=== PATIENT | male | born 1935 | race Caucasian/White ===

== ENCOUNTER 2024-02-02 11:47 | Inpatient (IN) | payer OTHER ==
[2024-02-02] MEDS ORDERED: NA CHLORIDE 0.9% 1,000 ML ONE (13:01)
[2024-02-02] MEDS ORDERED: ONDANSETRON 4 MG/2 ML VIAL ONE (13:01)
[2024-02-02] MEDS ORDERED: BISACODYL 10 MG RECTAL SUPP ONE (13:01)
[2024-02-02] MEDS ORDERED: FAMOTIDINE 20 MG/2 ML VIAL IV ONE (13:01)
[2024-02-02] MEDS ORDERED: LACTULOSE 20 GM/30 ML UCUP ONE (13:02)
[2024-02-02 13:17] LABS: Absolute Basophils 0.1 K/uL (0-0.5); Absolute Lymphocytes (CBC) 0.4 K/uL (0.7-4.9); Absolute Neutrophil 14.9 K/uL (1.8-8.0); Basophils % 0.3 % (0-1.3); Eosinophils % 0.2 % (0-4.4); Hematocrit 40.7 % (39.6-49.0); Hemoglobin 13.4 g/dL (13.6-17.9); Lymphocytes % 2.5 % (15.3-44.8); MCH 30.1 pg (27.0-35.0); MCV 91.3 fL (80-100); MPV 8.2 fL (7.6-11.3); Monocytes % 6.3 % (3.3-12.3); Neutrophils % 90.7 % (41.7-73.7); Platelets 195 thou/uL (152-406); RBC Red Blood Cell Count 4.45 M/uL (4.33-5.43); Red Cell Distribution Width 13.2 % (12.1-15.2)
[2024-02-02 13:34] LABS: Albumin 4.3 g/dL (3.4-5.0); Albumin/Globulin Ratio 1.5 (1.1-1.8); Anion Gap 9.4 mEq/L (5.0-15.0); Bilirubin Total 1.6 mg/dL (0.2-1.0); Globulin 2.8 g/dL (2.3-3.5); Potassium 3.4 mEq/L (3.5-5.1); Protein, Total 7.1 g/dL (6.4-8.2)
[2024-02-02 14:04] LABS: Specific Gravity 1.021 (1.005-1.030); Urine Bilirubin NEGATIVE (Negative); Urine Blood Negative (Negative); Urine Clarity Clear (Clear); Urine Color Light-Yellow (Yellow); Urine Glucose NEGATIVE (Negative); Urine Ketones NEGATIVE (Negative); Urine Microscopic Reflex YN NO UMIC; Urine Nitrite NEGATIVE (Negative); Urine Protein NEGATIVE (Negative); Urine Urobilinogen Normal (Normal)
--- NOTE | 2024-02-02 14:32 | EDPHYS ---
Physician Documentation [facility] Name: Kevin Hurst Age: 88 yrs Sex: Male : 1935 Arrival Date: 02/02/2024 Time: 11:47 Bed 13 Private MD: WOLFGANG Physician Rahul Kaiser HPI: 02/01 14:21 This 88 yrs old Male presents to ER via Ambulatory with complaints of jennifer Constipation - sent by DrAmin. 14:21 The patient presents with abdominal pain abdominal distention in the upper abdomen, in jennifer the lower abdomen. Onset: The symptoms/episode began/occurred 2 day(s) ago. The symptoms do not radiate. Associated signs and symptoms: Pertinent positives: constipation, nausea. The symptoms are described as constant, crampy. Modifying factors: The symptoms are alleviated by nothing, the symptoms are aggravated by movement, pressure, touching the area, walking. Historical: - Allergies: 12:37 No Known Allergies; cm10 - Home Meds: 12:37 pravastatin 20 mg oral tablet [Active]; doxazosin 2 mg oral tablet [Active]; famotidine cm10 40 mg Oral tablet [Active]; levocetirizine 5 mg oral tablet [Active]; Lisinopril 12 mg Oral [Active]; omeprazole 20 mg Oral tablet, delayed release (enteric coated) [Active]; metoprolol succinate 25 mg oral Tablet, Extended Release 24 hr [Active]; amlodipine 5 mg tablet [Active]; brimonidine 0.2 % ophthalmic (eye) drops [Active]; timolol maleate 0.5 % Opht Drops, Once Daily [Active]; latanoprost 0.005 % ophthalmic (eye) drops [Active]; - PMHx: 12:37 Hypercholesterolemia; Hypertensive disorder; Ulcer; GERD; cm10 - PSHx: 12:37 Tonsillectomy; Appendectomy; Cataract Surgery- right eye; hernia repair; Right 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 - Infectious Disease History:: Denies. - Social history:: Smoking status: Patient denies any tobacco usage or history of. - Family history:: not pertinent. ROS: 14:21 Constitutional: Negative for fever, chills, and weight loss, Eyes: Negative for injury, jennifer pain, redness, and discharge, ENT: Negative for injury, pain, and discharge, Neck: Negative for injury, pain, and swelling, Cardiovascular: Negative for chest pain, palpitations, and edema, Respiratory: Negative for shortness of breath, cough, wheezing, and pleuritic chest pain, Back: Negative for injury and pain, : Negative for injury, bleeding, discharge, and swelling, MS/Extremity: Negative for injury and deformity, Skin: Negative for injury, rash, and discoloration, Neuro: Negative for headache, weakness, numbness, tingling, and seizure, Psych: Negative for depression, anxiety, suicide ideation, homicidal ideation, and hallucinations, Allergy/Immunology: Negative for hives, rash, and allergies, Endocrine: Negative for neck swelling, polydipsia, polyuria, polyphagia, and marked weight changes, Hematologic/Lymphatic: Negative for swollen nodes, abnormal bleeding, and unusual bruising, 14:21 Abdomen/GI: Positive for abdominal pain, nausea, constipation, abdominal cramps, abdominal distension, of the right lower quadrant and left lower quadrant, Exam: 14:21 Constitutional: This is a well developed, well nourished patient who is awake, alert, jennifer and in no acute distress. Head/Face: Normocephalic, atraumatic. Eyes: Pupils equal round and reactive to light, extra-ocular motions intact. Lids and lashes normal. Conjunctiva and sclera are non-icteric and not injected. Cornea within normal limits. Periorbital areas with no swelling, redness, or edema. ENT: Nares patent. No nasal discharge, no septal abnormalities noted. Tympanic membranes are normal and external auditory canals are clear. Oropharynx with no redness, swelling, or masses, exudates, or evidence of obstruction, uvula midline. Mucous membranes moist. Neck: Trachea midline, no thyromegaly or masses palpated, and no cervical lymphadenopathy. Supple, full range of motion without nuchal rigidity, or vertebral point tenderness. No Meningismus. Chest/axilla: Normal chest wall appearance and motion. Nontender with no deformity. No lesions are appreciated. Cardiovascular: Regular rate and rhythm with a normal S1 and S2. No gallops, murmurs, or rubs. Normal PMI, no JVD. No pulse deficits. Respiratory: Lungs have equal breath sounds bilaterally, clear to auscultation and percussion. No rales, rhonchi or wheezes noted. No increased work of breathing, no retractions or nasal flaring. Back: No spinal tenderness. No costovertebral tenderness. Full range of motion. Male : Normal genitalia with no discharge or lesions. Skin: Warm, dry with normal turgor. Normal color with no rashes, no lesions, and no evidence of cellulitis. MS/ Extremity: Pulses equal, no cyanosis. Neurovascular intact. Full, normal range of motion. Neuro: Awake and alert, GCS 15, oriented to person, place, time, and situation. Cranial nerves II-XII grossly intact. Motor strength 5/5 in all extremities. Sensory grossly intact. Cerebellar exam normal. Normal gait. Psych: Awake, alert, with orientation to person, place and time. Behavior, mood, and affect are within normal limits. 14:21 Abdomen/GI: Inspection: distension, Bowel sounds: hyperactive, in the right lower quadrant and left lower quadrant, Palpation: mild abdominal tenderness, moderate abdominal tenderness, in the right lower quadrant and left lower quadrant, Liver: no appreciated palpable abnormalities, Hernia: not appreciated, Vital Signs: 12:35 BP 141 / 66; Pulse 83; Resp 16; Temp 97.6; Pulse Ox 95% on R/A; Weight 88 kg; Height 6 cm10 ft. 1 in. ; Pain 0/10; 15:03 BP 127 / 63; Pulse 64; Resp 15; Pulse Ox 96% ; bp 15:50 BP 112 / 60; Pulse 62; Resp 16; Pulse Ox 95% ; bp 12:35 Body Mass Index 25.59 (88.00 kg, 185.42 cm) cm10 12:35 Pain Scale: Adult cm10 MDM: 12:22 Patient medically screened. jennifer 16:40 Differential diagnosis: diverticulitis, Mesenteric ischemia or infarction, non-specific jennifer abd pain, pancreatitis, Peptic Ulcer Disease, Prostatitis, Pyelonephritis, Ureterolithiasis, urinary tract infection. Data reviewed: vital signs, nurses notes, lab test result(s), radiologic studies, CT scan. Consideration of Admission/Observation Escalation of care including admission/observation considered. I considered the following discharge prescriptions or medication management in the emergency department Medications were administered in the Emergency Department. See MAR. Independent interpretation of the following test(s) in the Emergency Department CT Scan: My interpretation is CT ABD PELVIS. Test considered but Not performed: MRI: NO ABD USG. Care significantly affected by the following chronic conditions: Hypertension, GERD, PUD, HIGH CHLESTEROL. 02/01 12:26 Order name: CBC with Diff; Complete Time: 17:03 [facility] 02/01 12:26 Order name: CMP [facility] 02/01 12:26 Order name: Lipase [facility] 02/01 12:26 Order name: Urinalysis w/ reflexes; Complete Time: 14:05 [facility] 02/01 16:40 Order name: Manual Differential; Complete Time: 17:03 [facility] 02/01 14:52 Order name: Abdomen ; Complete Time: 16:27 [facility] 02/01 12:26 Order name: IV Saline Lock; Complete Time: 12:57 [facility] 02/01 12:26 Order name: Labs collected and sent; Complete Time: 12:57 [facility] Administered Medications: 13:09 Drug: NS 0.9% IV 1000 ml IV at 1 bolus Per protocol; 1000 mL bolus Route: IV; Rate: 1 bp bolus; Site: right antecubital; 15:53 Follow up: IV Status: Completed infusion; IV Intake: 1000ml bp 13:09 Drug: Famotidine IVP 20 mg IVP once; dilute with 10 mL 0.9% NaCl; give over 2 minutes bp Route: IVP; Site: right antecubital; 15:53 Follow up: Response: No adverse reaction bp 13:09 Drug: Ondansetron IVP 4 mg IVP once; over 2 minutes Route: IVP; Site: right antecubital;bp 15:53 Follow up: Response: No adverse reaction bp 13:09 Drug: Lactulose PO 30 grams 45 ml PO once Volume: 45 ml; Route: PO; bp 15:52 Follow up: Response: No adverse reaction bp 15:03 Drug: Piperacillin-Tazobactam IVPB 3.375 grams IVPB once over 60 mins; (mix in NS 100 bp mL) Route: IVPB; Infused Over: 60 mins; Site: right antecubital; 15:52 Follow up: IV Status: Completed infusion; IV Intake: 100ml bp 15:03 Drug: NS 0.9% with KCl IV 20 mEq/L 1000 ml IV at 100 ml/hr continuous Route: IV; Rate: bp 100 ml/hr; Site: right antecubital; 15:52 Follow up: IV Status: Infusion continued upon admission bp 15:40 Not Given (Other Intervention Used): dulcolaxsuppository 10 mg MA once bp Disposition Summary: 02/02/24 16:43 Discharge Ordered Notes: Location: Home(02/02/24 16:43) jennifer Problem: new(02/02/24 16:43) jennifer Symptoms: have improved(02/02/24 16:43) jennifer Condition: Stable(02/02/24 16:43) jennifer Diagnosis - Constipation - FECAL IMPACTION(02/02/24 16:43) jennifer - Abdominal tenderness(02/02/24 16:43) jennifer - Elevated white blood cell count(02/02/24 16:43) jennifer - Unspecified kidney failure jennifer - Bandemia jennifer Followup: jennifer - With: Apolinar Bird MD - When: 1 - 2 days - Reason: Recheck today's complaints, Continuance of care, Re-evaluation by your physician Discharge Instructions: - Discharge Summary Sheet jennifer - Abdominal Pain, Adult jennifer - Constipation, Adult jennifer - Constipation, Adult, [id number] jennifer - Abdominal Pain, Adult, [id number] jennifer - Chronic Kidney Disease, Adult, [id number] [facility] Forms: - Medication Reconciliation Form jennifer - Antibiotic Education jennifer - Prescription Opioid Use jennifer - Patient Portal Instructions [facility] - Leadership Thank You Letter [facility] Prescriptions: - Dulcolax (bisacodyl) 10 mg Rectal suppository - insert 1 suppository RECTAL route daily for 5 days; 5 suppository; Refills: 0, [facility] Product Selection Permitted - Augmentin 875-125 mg Oral Tablet - take 1 tablet ORAL route every 12 hours for 10 days; 20 tablet; Refills: 0, [facility] Product Selection Permitted - Lactulose 10 gram/15 mL Oral Solution - take 30 milliliters ORAL route once daily; 300 milliliter; Refills: 0, Product [facility] Selection Permitted Signatures: Dispatcher [employer] EDMS Rahul Kaiser MD MD cha Pinkerton, Shawna sp Peltier, Brian, Angelica Gonzalez RN, RN RN cm10 Corrections: (The following items were deleted from the chart) 12:27 12:27 Abdomen Pelvis W [id number].[id number] ordered. EDMS EDMS 15:15 14:31 jennifer sp 15:39 14:05 Valdez ordered. jennifer bp 16:42 14:31 Observation jennifer jennifer 16:42 14:31 Bird, A jennifer jennifer 16:42 14:31 Telemetry/MedSurg (observation) jennifer jennifer 16:42 14:31 Fair jennifer jennifer 16:42 14:31 new jennifer jennifer 16:42 14:31 have improved jennifer jennifer 16:42 14:31 Standard jennifer jennifer 16:42 14:31 Abdominal tenderness jennifer jennifer 16:42 14:31 Elevated white blood cell count jennifer jennifer 16:42 14:31 Constipation jennifer jennifer 16:42 14:32 Hypokalemia jennifer jennifer 16:42 14:32 Chronic kidney disease, unspecified jennifer jennifer 16:42 15:15 205 sp jennifer
--- NOTE | 2024-02-02 14:32 | ER ---
Nurse's Notes [facility] Name: Kevin Hurst Age: 88 yrs Sex: Male : 1935 Arrival Date: 02/02/2024 Time: 11:47 Bed 13 Private MD: Diagnosis: Constipation-FECAL IMPACTION;Abdominal tenderness;Elevated white blood cell count;Unspecified kidney failure;Bandemia Presentation: 02/01 12:35 Chief complaint: Patient states: Sent to the ER by Dr. Bird. Pt states that he has been cm10 constipated since and has not been able to urinate since last night at 2200. Pt reports abdominal pain that he describes as pressure and is worse when sitting. Coronavirus screen: Client denies travel out of the [place] in the last 14 days. At this time, the client does not indicate any symptoms associated with coronavirus-19. Ebola Screen: Patient denies travel to an Ebola-affected area in the 21 days before illness onset. No symptoms or risks identified at this time. Initial Sepsis Screen: Does the patient meet any 2 criteria? No. Patient's initial sepsis screen is negative. Does the patient have a suspected source of infection? No. Patient's initial sepsis screen is negative. Risk Assessment: Do you want to hurt yourself or someone else? Patient reports no desire to harm self or others. Onset of symptoms was February 02, 2024. 12:35 Method Of Arrival: Ambulatory cm10 12:35 Acuity: DONALD 3 cm10 Triage Assessment: 12:44 General: Appears in no apparent distress. uncomfortable, Behavior is calm, cooperative. cm10 Neuro: No deficits noted. Level of Consciousness is awake, alert, obeys commands, Oriented to person, place, time, situation, Appropriate for age. Respiratory: No deficits noted. Airway is patent Respiratory effort is even, unlabored, Respiratory pattern is regular, symmetrical. Historical: - Allergies: 12:37 No Known Allergies; cm10 - Home Meds: 12:37 pravastatin 20 mg oral tablet [Active]; doxazosin 2 mg oral tablet [Active]; famotidine cm10 40 mg Oral tablet [Active]; levocetirizine 5 mg oral tablet [Active]; Lisinopril 12 mg Oral [Active]; omeprazole 20 mg Oral tablet, delayed release (enteric coated) [Active]; metoprolol succinate 25 mg oral Tablet, Extended Release 24 hr [Active]; amlodipine 5 mg tablet [Active]; brimonidine 0.2 % ophthalmic (eye) drops [Active]; timolol maleate 0.5 % Opht Drops, Once Daily [Active]; latanoprost 0.005 % ophthalmic (eye) drops [Active]; - PMHx: 12:37 Hypercholesterolemia; Hypertensive disorder; Ulcer; GERD; cm10 - PSHx: 12:37 Tonsillectomy; Appendectomy; Cataract Surgery- right eye; hernia repair; Right 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 - Infectious Disease History:: Denies. - Social history:: Smoking status: Patient denies any tobacco usage or history of. - Family history:: not pertinent. Screenin:51 [facility] ED Fall Risk Assessment (Adult) History of falling in the last 3 months, bp including since admission No falls in past 3 months (0 pts) Confusion or Disorientation No (0 pts) Intoxicated or Sedated No (0 pts) Impaired Gait No (0 pts) Mobility Assist Device Used No (0 pt) Altered Elimination No (0 pt) Score/Fall Risk Level 0 - 2 = Low Risk Oriented to surroundings. Abuse screen: Denies threats or abuse. Denies injuries from another. Nutritional screening: No deficits noted. Tuberculosis screening: No symptoms or risk factors identified. Assessment: 13:00 General: Appears in no apparent distress. Behavior is cooperative, appropriate for age, bp anxious. Pain: Complains of pain in left lower quadrant and right lower quadrant. GI: Bowel sounds present X 4 quads. Abd is soft X 4 quads. 15:04 Reassessment: ADMIT INITIATED. bp 15:51 Reassessment: FAX REPORT TO 2ND. bp Vital Signs: 12:35 BP 141 / 66; Pulse 83; Resp 16; Temp 97.6; Pulse Ox 95% on R/A; Weight 88 kg; Height 6 cm10 ft. 1 in. ; Pain 0/10; 15:03 BP 127 / 63; Pulse 64; Resp 15; Pulse Ox 96% ; bp 15:50 BP 112 / 60; Pulse 62; Resp 16; Pulse Ox 95% ; bp 12:35 Body Mass Index 25.59 (88.00 kg, 185.42 cm) cm10 12:35 Pain Scale: Adult cm10 ED Course: 11:54 Patient arrived in ED. ra3 12:22 Rahul Kaiser MD is Attending Physician. jennifer 12:37 Triage completed. cm10 12:44 Arm band placed on Patient placed in an exam room, on a stretcher. cm10 12:56 Benson Farmer, RN is Primary Nurse. bp 12:57 CBC with Diff Sent. bc6 12:57 CMP Sent. bc6 12:57 Lipase Sent. bc6 12:57 Initial lab(s) drawn, by tn, sent to lab. Inserted saline lock: 20 gauge in right bc6 antecubital area, using aseptic technique. Blood collected. Flushed with 10 mL NS. 14:30 Jordan Bird MD is Hospitalizing Provider. [facility] 14:52 Abdomen In Process Unspecified. EDMS 15:51 Patient has correct armband on for positive identification. Provided Education on: bp Blood Transfusion. 15:51 No provider procedures requiring assistance completed. Patient admitted, IV remains in bp place. 16:42 Apolinar Bird MD is Referral Physician. jennifer Administered Medications: 13:09 Drug: NS 0.9% IV 1000 ml IV at 1 bolus Per protocol; 1000 mL bolus Route: IV; Rate: 1 bp bolus; Site: right antecubital; 15:53 Follow up: IV Status: Completed infusion; IV Intake: 1000ml bp 13:09 Drug: Famotidine IVP 20 mg IVP once; dilute with 10 mL 0.9% NaCl; give over 2 minutes bp Route: IVP; Site: right antecubital; 15:53 Follow up: Response: No adverse reaction bp 13:09 Drug: Ondansetron IVP 4 mg IVP once; over 2 minutes Route: IVP; Site: right antecubital;bp 15:53 Follow up: Response: No adverse reaction bp 13:09 Drug: Lactulose PO 30 grams 45 ml PO once Volume: 45 ml; Route: PO; bp 15:52 Follow up: Response: No adverse reaction bp 15:03 Drug: Piperacillin-Tazobactam IVPB 3.375 grams IVPB once over 60 mins; (mix in NS 100 bp mL) Route: IVPB; Infused Over: 60 mins; Site: right antecubital; 15:52 Follow up: IV Status: Completed infusion; IV Intake: 100ml bp 15:03 Drug: NS 0.9% with KCl IV 20 mEq/L 1000 ml IV at 100 ml/hr continuous Route: IV; Rate: bp 100 ml/hr; Site: right antecubital; 15:52 Follow up: IV Status: Infusion continued upon admission bp 15:40 Not Given (Other Intervention Used): dulcolaxsuppository 10 mg GA once bp Intake: 15:52 IV: 100ml; Total: 100ml. bp 15:53 IV: 1000ml; Total: 1100ml. bp Outcome: 14:31 Decision to Hospitalize by Provider. jennifer 15:51 Admitted to Med/surg accompanied by tech, via wheelchair, bp 15:51 Condition: stable 15:51 Instructed on the need for admit, 16:43 Discharge ordered by . [facility] 17:06 Patient left the ED. Signatures: Dispatcher [employer] EDMS Rahul Kaiser MD MD cha Baxter, Heather, RN RN Benson Farmer RN RN Verónica Cheek bc6 Angelica Ricardo RN RN cm10 Ira Will 3
[2024-02-02] MEDS ORDERED: PIPERACIL/TAZO 3.375 GM VIAL IV ONE (14:43)
[2024-02-02] MEDS ORDERED: NS KCL 20MEQ 1,000 ML IV ONE (14:43)
[2024-02-02] MEDS ORDERED: NA CHLORIDE 0.9% 100 ML ONE (14:43)
--- NOTE | 2024-02-02 15:10 | RAD REPORT ---
EXAM DESCRIPTION: CT - Abdomen Pelvis Wo Contrast - 02/02/2024 2:52 pm CLINICAL HISTORY: Abdominal pain and constipation COMPARISON: 2014 TECHNIQUE: Computed axial tomography of the abdomen and pelvis was obtained. IV contrast not request ed. Oral contrast given All CT scans are performed using dose optimization technique as appropriate and may include automated exposure control or mA/KV adjustment according to patient size. FINDINGS: The evaluation of solid organs and vessels is limited secondary to the lack of contrast a dministration. Cholelithiasis. Small hiatal hernia 4.6 centimeter low to intermediate density lesion right lobe of the liver. Spleen, pancreas, left adrenal and left kidney grossly normal 1.6 centimeter right adrenal lesion unchanged. Hounsfield unit negative for. This is compatible with an adenoma. No follow-up imaging recommended Rectum distended stool measuring 7.4 centimeters. Moderate to large amount of stool throughout the re mainder of the colon. Moderate inguinal hernias contain fat. Stranding is present within the fat which may indicate inflamm ation should be correlated clinically. Postsurgical changes right inguinal hernia repair Mild prostatic enlargement Small umbilical hernia IMPRESSION: 4.6 centimeter hepatic lesion not clearly seen on prior exam. This may represent neopla sm. It is recommended that the patient have an ultrasound for further evaluation Fecal impaction Moderate inguinal hernias contain fat. Stranding is present within the fat which may indicate inflamm ation should be correlated clinically. Postsurgical changes right inguinal hernia repair
[2024-02-02 16:40] LABS: Band Neutrophils 12 % (0-1); Blood Morphology Comment NOT SEEN (NOT SEEN); Differential Total Cells Count 100; Lymphocytes 3 % (15-42); Monocytes 6 % (0-10); Platelet Estimate ADEQ; Segmented Neutrophils 79 % (40-80)
[2024-02-02 17:19] VITALS: TEMP 97.6
[2024-02-02 17:24] VITALS: BP 112/60; O2SAT 95
== END 2024-02-02 17:25 | disposition left against medical advice (07) | DRG 392 ==
LOC: ER 11:47 → ERHOLD 14:34 → 2ND 15:51
PROVIDERS: ADMIT Internal Medicine; ATTEND Internal Medicine
DX: K59.00 Constipation, unspecified (principal); E78.00 Pure hypercholesterolemia, unspecified; I10 Essential (primary) hypertension; D72.825 Bandemia; D72.829 Elevated white blood cell count, unspecified; K21.9 Gastro-esophageal reflux disease without esophagitis; Z90.5 Acquired absence of kidney; Z90.49 Acquired absence of other specified parts of digestive tract; Z53.29 Procedure and treatment not carried out because of patient's decision for other reasons; Z79.899 Other long term (current) drug therapy
CPT/HCPCS: 36415; 74176; 80053; 81003; 83690; 85025; 96361; 96365; 96375; 99285; J2405; J2543; J3480; J7030

== ENCOUNTER 2024-04-27 20:43 | Inpatient (IN) | payer OTHER ==
--- OUTSIDE RECORDS SUMMARY | 2024-04-27 20:46 | XMS REPORT | Clinical Summary ---
Author Name Unknown Organization [facility] Address [address] [place] [address] Care Team Providers Care Intellectual Property Legal Assistant Name Role Phone Apolinar Bird MD Unavailable [phone] Ira Lancaster RN Unavailable Kalpana Mancera MD Primary Care Provider [phone] Allergies No known active allergies Medications Medication Sig Dispensed Refills Start Date End Date Status pravastatin (PRAVACHOL) 20 mg tablet Take 1 tablet (20 mg) by mouth daily. Active doxazosin (CARDURA) 2 mg tablet Take 1 tablet (2 mg) by mouth at bedtime. Active famotidine (PEPCID) 40 mg tablet Take 1 tablet (40 mg) by mouth nightly as needed. Active omeprazole (PriLOSEC) 20 mg capsule Take 1 capsule (20 mg) by mouth every morning before breakfast. Active metoprolol succinate (TOPROL XL) 25 mg 24 hr tablet Take 1 tablet (25 mg) by mouth daily. Active amLODIPine (NORVASC) 5 mg tablet Take 1 tablet (5 mg) by mouth daily. Active cyanocobalamin (VITAMIN B-12) 1000 mcg tablet Take 5 tablets (5,000 mcg) by mouth. Active brimonidine 0.2% ophthalmic solution Administer 1 drop to both eyes twice daily. 07/26/2023 Active timolol (TIMOPTIC) 0.5% ophthalmic solution Administer 1 drop to both eyes daily. 02/08/2024 Active latanoprost (XALATAN) 0.005% ophthalmic solution Administer 1 drop to both eyes at bedtime. 02/08/2024 Active tamsulosin (FLOMAX) 0.4 mg 24 hr capsule Take 1 capsule (0.4 mg) by mouth daily. 02/04/2024 Active lisinopril (PRINIVIL,ZESTRIL) 10 mg tablet Take 1 tablet (10 mg) by mouth twice daily. Active vit C/E/Zn/coppr/lutein/ zeaxan (PRESERVISION AREDS-2 ORAL) Take 1 tablet by mouth daily. Active cholecalciferol, vitamin D3, (VITAMIN D3) 2,000 units tab tablet Take 1 tablet (2,000 Units) by mouth daily. Active Active Problems Problem Noted Date Diagnosed Date Liver mass 03/06/2024 Hyperlipidemia Hypertension Encounters Date Type Department Care Team Description 03/26/2024 Orders Only Internal Medicine Center [address] [facility], 9th [place] [address] Sergey Crouch APRN Liver mass (Primary Dx) 03/25/2024 Telephone Internal Medicine Center [address] [facility], 6th [place] [address] Kalpana Mancera MD 03/20/2024 9:23 AM CDT Anesthesia Event [facility] [address] [place] [address] Scottie Jarrell MD Faruki, Adeel Ahmad, MD 03/20/2024 7:58 AM CDT - 03/20/2024 11:59 PM CDT Hospital Encounter [facility] [address] [place] [address] Sergey Crouch APRN Lu, Thomas, MD Liver mass Discharge Disposition: Home 03/20/2024 Travel 03/19/2024 10:08 AM CDT - 03/19/2024 11:59 PM CDT Hospital Encounter [facility] [address] [place] [address] Kalpana Mancera MD Wu, Pei H, PA-C Liver mass (Primary Dx); Encounter for preprocedural laboratory examination Discharge Disposition: Home 03/19/2024 Travel 03/18/2024 10:00 AM CDT POEM Appointments [facility] [address] [place] [address], 6th [place] [address] Kalpana Mancera MD 03/18/2024 Telephone MD [facility] [address] [place] [address] Monicaoralia Rodriguez PramodRUTH latif 03/17/2024 11:59 PM CDT Anesthesia Event [facility] [address] [place] [address], 6th [place] [address] Chacha Watts RN 03/14/2024 Orders Only Interventional Radiology [address] [facility], 4th [place] [address] Makenzie Mclain PA-C Encounter for preprocedural laboratory examination (Primary Dx) 03/12/2024 2:00 PM CDT - 03/12/2024 11:59 PM CDT Hospital Encounter [facility] [address] [place] [address], 2nd [place] [address] Sergey Crouch APRN Liver mass Discharge Disposition: Home 03/12/2024 1:15 PM CDT - 03/12/2024 1:59 PM CDT Hospital Encounter [facility] [address] [place] [address], [place] [address] Sergey Crouch APRN Liver mass Discharge Disposition: Home 03/12/2024 10:30 AM CDT Office Visit [facility] [address] [place] [address], 9th [place] [address] Kalpana Mancera MD Liver mass (Primary Dx); Hypertension; Mixed hyperlipidemia 03/12/2024 9:30 AM CDT NPR [facility] PATIENT ACCESS 03/12/2024 Documentation [facility] [address] [place] [address], 9th [place] [address] Sandra Barboza RN 03/12/2024 Travel 03/07/2024 8:05 PM CDT Ancillary Procedure Image Library [address] [place] [address] Kalpana Mancera MD Cancer 03/07/2024 8:00 PM CDT Ancillary Procedure Image Library [address] [place] [address] Kalpana Mancera MD Cancer 03/04/2024 Lab Requisition [facility] Hector Pittman MD Feng, Wei, MD 02/28/2024 Telephone [facility] [address] [place] [address] Main [facility], [facility] [place] [address] Ira Lancaster, RN 02/27/2024 Telephone [facility] [address] [place] [address], [facility] [place] [address] Ira Lancaster, RN 02/21/2024 Telephone [facility] [address] [place] [address], [facility] [place] [address] Ira Lancaster, RN 02/20/2024 Telephone [facility] [address] [place] [address], [facility] [place] [address] Ira Lancaster, RN 02/20/2024 Telephone [facility] PATIENT ACCESS Kavita Mercado, RN after 04/28/2023 Immunizations Name Administration Dates Next Due Influenza Whole 03/25/2015,06/05/2014 Surgical History Surgery Date Site/Laterality Comments TONSILLECTOMY 06/25/1943 - 06/24/1944 APPENDECTOMY 06/25/1943 - 06/24/1944 CATARACT EXTRACTION, BILATERAL 06/25/2006 - 06/24/2007 R ight KNEE SURGERY 06/25/2007 - 06/24/2008 Right HERNIA REPAIR 06/25/2013 - 06/24/2014 NEPHRECTOMY 06/25/2014 - 06/24/2015 Right PROSTATE SURGERY 06/25/2014 - 06/24/2015 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 CATARACT EXTRACTION, BILATERAL 06/25/2015 - 06/24/2016 L eft Medical History Medical History Date Comments Hypertension Hyperlipidemia Social History Tobacco Use Types Packs/Day Years Used Date Smoking Tobacco: Former Cigars 2 002 - 2003 Passive Smoke Exposure: Past Smokeless Tobacco: Never Tobacco Cessation:Counseling Given: No Comments:Socially cigar Alcohol Use Standard Drinks/Week Comments Not Currently 0 (1 standard drink = 0.6 oz pur e alcohol) Sex and Gender Information Value Date Recorded Sex Assigned at Male 02/20/2024 11:40 AM CDT Gender Identity Male 02/20/2024 11:40 AM CDT Sexual Orientation Not on file Job Start Date Occupation Industry Not on file Not on file Not on file Obstetrics History Last Filed Vital Signs Vital Sign Reading Time Taken Comments Blood Pressure 138/70 03/20/2024 1:00 PM CDT Pulse 55 03/20/2024 1:00 PM CDT pt baseline - MD aware Temperature 36.5 C (97.7 F) 03/20/2024 1 2:50 PM CDT Respiratory Rate 12 03/20/2024 1:00 PM CDT Oxygen Saturation 97% 03/20/2024 1:0 0 PM CDT Inhaled Oxygen Concentration - - Weight 89.4 kg (197 lb 1.5 oz) 03/20/2024 8:26 AM CDT Height 173 cm (5' 8.11") 03/12/2024 11: 12 AM CDT Body Mass Index 29.87 03/12/2024 11:12 AM CDT Plan of Treatment Upcoming Encounters Date Type Department Care Team (Late st Contact Info) Description 05/08/2024 11:00 AM COMMERCIAL LENDER Consult [facility] [facility], 7th [place] [address] Arthur Still MD [address] [place] [address] [email or web address] Health Maintenance Due Date Last Done Comments Pneumococcal Vaccine: 65+ Ye ars (1 of - PCV) 2000 COVID-19 Vaccine ( - season) 2024 Influenza Vaccine (#1) 2024 03/25/2015, 2013 Procedures Procedure Name Priority Date/Time Associated Diagnosis Comments IR US GUIDED BIOPSY LIVER 60 Routine 03/20/2024 10:06 AM CDT Liver mass PATHOLOGY BIOPSY INTERPRETATION Routine 03/20/2024 8:38 AM CDT Liver mass CONFIRM ABORH TYPE Routine 03/19/2024 12 :15 PM CDT Encounter for preprocedural laboratory examination TYPE AND SCREEN Routine 03/19/2024 12:14 PM CDT Encounter for preprocedural laboratory examination .CBC Routine 03/12/2024 1:52 PM CDT Liver mass CARBOHYDRATE ANTIGEN 19-9 Routine 03/12/2024 1:52 PM CDT Liver mass CARCINOEMBRYONIC ANTIGEN Routine 03/12/2024 1:52 PM CDT Liver mass ALPHA FETOPROTEIN TUMOR MARKER Routine 03/12/2024 1:52 PM CDT Liver mass HEPATIC FUNCTION PANEL Routine 1:52 PM CDT Liver mass HEPATITIS C VIRUS ANTIBODY Routine 03/12/2024 1:52 PM CDT Liver mass APTT Routine 03/12/2024 1:52 PM CDT Liver mass COMPLETE BLOOD COUNT W/ DIFFERENTIAL Routine 03/12/2024 1:52 PM CDT Liver mass PROTHROMBIN TIME Routine 03/12/2024 1:52 PM CDT Liver mass LACTATE DEHYDROGENASE Routine 03/12/2024 1:52 PM CDT Liver mass MAGNESIUM LEVEL Routine 03/12/2024 1:52 PM CDT Liver mass PHOSPHORUS LEVEL Routine 03/12/2024 1:52 PM CDT Liver mass CALCIUM LEVEL Routine 03/12/2024 1:52 PM CDT Liver mass GLUCOSE, RANDOM Routine 03/12/2024 1:52 PM CDT Liver mass CREATININE Routine 03/12/2024 1:52 PM CDT Liver mass BLOOD UREA NITROGEN Routine 03/12/2024 1 :52 PM CDT Liver mass ELECTROLYTE PANEL Routine 03/12/2024 1:5 2 PM CDT Liver mass EKG, 12-LEAD (SCHEDULED) Routine 03/12/2024 Liver mass OSI US ABDOMINAL COMPLETE Routine 02/06/2024 4:15 PM CDT Cancer OSI CT ABDOMEN AND PELVIS Routine 02/02/2024 4:15 PM CDT Cancer after 04/28/2023 Results * IR US GUIDED BIOPSY LIVER (03/20/2024 10:06 AM CDT) Anatomical Region Laterality Modality Abdomen/Pelvis, Organ (liver/spleen/kidney) Computed Tomography Narrative 03/20/2024 1:36 PM CDT Date of Procedure: 03/20/24 Attending Physician: Hi Singleton MD Patient Liaison: None Pre Procedure Diagnosis: Liver mass Post Procedure Diagnosis: Unchanged Indication: New mass / nodule for tissue diagnosis Protocol Number: N/A Title of Procedure: Percutaneous Ultrasound-Guided Biopsy Operative Findings: Percutaneous image-guided biopsy of 5cm right liver mass. Consent: The procedure, risks, indications and alternatives were explained. All questions were answered and informed consent was obtained. I have reviewed the history and physical dictated by the MARIN / fellow. Sedation/Anesthesia: Anesthesia provided by Anesthesia Department. Procedure in Detail: A time out was performed prior to the start of the procedure and the correct patient, procedure, presence of consent, site, and side were confirmed with all members of the team. With the patient in the supine position, the skin overlying the area of interest was prepped and draped in the usual sterile fashion. Lidocaine 1% was used for local anesthesia. Using an anterior approach under Ultrasound image-guidance, a 17 gauge needle was advanced down to the right liver mass. An image was obtained and placed into the medical record. Samples were obtained for evaluation. Sampling: Core Biopsy: An 18 gauge needle used to obtain samples for surgical pathology evaluation. Total number of samples: 4 Specimens Disposition: Diagnostic Biopsy: The biopsy samples were submitted to pathology. Additional Comments: Gelfoam pledget and slurry utilized with removal of the guiding needle. Estimated Blood Loss: Minimal Immediate Complications: None Disposition: PACU Plan: No follow-up with Interventional Radiology required. 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 (SEE COMMENT) 03/25/2024 1:48 PM CDT [facility] Preliminary result electronically signed by Renetta Montes MD on 03/21/2024 at 7:13 PM Comment Immunohistochemistry shows that the tumor is positive for cytokeratin 7 and negative for cytokeratin 20, CDX2, PAX8, TTF1 and NKX3.1. Albumin (in situ hybridization, appropriate RNA control) is positive in occasional cells. The morphologic and immunohistochemical findings argue against metastasis of renal origin and suggests intrahepatic cholangiocarcinoma. Clinical correlation is recommended. 03/25/2024 1:48 PM CDT [facility] Gross Description A: Liver, liver biopsy: Multiple drake-white to red-brown cores and core fragments measuring 1.5 x 0.4 x 0.1 cm in aggregate, entirely submitted in A1. GM 03/25/2024 1:48 PM CDT [facility] Biomarker Block(s) Block for biomarker testing: A1 03/25/2024 1:48 PM T [facility] Disclaimer "Some tests reported here may have been developed and performance characteristics determined by [facility] Pathology and Laboratory Medicine. These tests have not been specifically cleared or approved by the U.S. Food and Drug Administration. If applicable, controls were reviewed and showed appropriate reactivity." 03/25/2024 1:48 PM CDT [facility] Tissue (Liver) 03/20/2024 8: 38 AM CDT 03/20/2024 12:19 PM CDT Sergey Crouch APRN LAB PATHOLOGY ORDE FARNAZ [facility] [address] [place] [address], * Confirm ABORh (03/19/2024 12:15 PM CDT) ABORh Confirm O POS 03/18/2024 7:00 PM CDT [facility] Blood Peripheral blood specimen / Unknown Venipuncture / Unknown 03/19/2024 12:15 PM CDT 03/19/2024 12:16 PM CDT Makenzie Mclain PA-C BLOOD BANK TEST OR DERABLES [facility] [address] [place] [address] [id number] [place] [address] * Type and Screen (03/19/2024 12:14 PM CDT) ABORh O POS 03/19/2024 12:00 PM CDT [facility] ABSC Negative 03/19/2024 12:00 PM CDT [facility] Clot Expiration 03/22/2024 23:59 03/19/2024 12:00 PM CDT [facility] Historical Record Check No History 03/19/2024 12:00 PM CDT [facility] Blood Peripheral blood specimen / Unknown Venipuncture / Unknown 03/19/2024 12:14 PM CDT 03/19/2024 12:15 PM CDT Makenzie Mclain PA-C BLOOD BANK TEST OR DERABLES [facility] [id number] [place] [address] * Glucose, Random (03/12/2024 1:52 PM CDT) [facility] Glucose Random 107 70 - 199 mg/dL 03/12/2024 2:35 PM CDT [facility] Blood Peripheral blood specimen / Unknown Venipuncture / Unknown 03/12/2024 1:52 PM CDT 03/12/2024 1:55 PM CDT Narrative [facility] - 03/12/2024 2:35 PM CDT Effective 01/19/16, the glucose reference intervals have been updated based on [place] Diabetes [employer] guidelines (Standards of Medical Care in Diabetes 2016. Diabetes Care 2016; 39: S13-S22). Fasting blood glucose: Normal: 70-99 mg/dL Impaired fasting glucose (increased risk for diabetes or pre-diabetes): 100-125 mg/dL Diabetes mellitus: >/=126 mg/dL Random blood glucose: Normal: 70-199 mg/dL Note: Random glucose >100 mg/dL is associated with increased risk for diabetes Sergey Crouch APRN LAB BLOOD ORDERABL ES [facility] Unless otherwise noted, all lab tests performed by: Division of Pathology and Laboratory Medicine [address] [place] [phone] * (ABNORMAL) .CBC (03/12/2024 1:52 PM CDT) Pathologist [facility] White Blood Cell 6.8 4.1 - 10.5 K/uL 03/12/2024 2:09 PM CDT [facility] Red Blood Cell 4.18(L) 4.30 - 6.04 M/uL 03/12/2024 2:09 PM CDT [facility] Hemoglobin 12.9(L) 13.3 - 17.4 g/dL 03/12/2024 2:09 PM CDT [facility] Hematocrit 38.1(L) 39.5 - 51.8 % 03/12/2024 2:09 PM CDT [facility] Mean Cell Volume 91 82 - 99 fL 03/12/2024 2:09 PM CDT [facility] Mean Cell Hemoglobin 30.9 26.6 - 33.2 pg 03/12/2024 2:09 PM CDT [facility] Mean Cell Hemoglobin Concentration 33.9 31.1 - 35.2 g/dL 03/12/2024 2:09 PM CDT [facility] RDW-SD 41.1 37.5 - 49.7 fL 03/12/2024 2:09 PM CDT [facility] Red Cell Diameter Width 12.4 11.6 - 15.5 % 03/12/2024 2:09 PM CDT [facility] Platelet 174 160 - 397 K/uL 03/12/2024 2:09 PM CDT [facility] Mean Platelet Volume 10.0 9.1 - 12.6 fL 03/12/2024 2:09 PM CDT [facility] INRBC 0.0 0.0 - 0.1 /100 WBC 03/12/2024 2:09 PM CDT [facility] Comment: The INRBC (instrument NRBC) value reflects the enumeration of nucleated red blood cells contained in a 200uL sample of whole blood analyzed by the instrument. This value may differ from the NRBC value reported in a manual differential, which is based on a 100 cell differential. Neutrophil % 78.5(H) 43.2 - 72.7 % 03/12/2024 2:09 PM CDT [facility] Lymphocyte % 10.9(L) 16.8 - 46.2 % 03/12/2024 2:09 PM CDT [facility] Monocyte % 7.2 5.1 - 12.5 % 03/12/2024 2:09 PM CDT [facility] Eosinophil % 2.1 0.4 - 6.3 % 03/12/2024 2:09 PM CDT [facility] Basophil % 0.6 0.2 - 1.4 % 03/12/2024 2:09 PM CDT [facility] IGRE % 0.7 0.1 - 1.5 % 03/12/2024 2:09 PM CDT [facility] Comment:The IGRE% includes M etamyelocytes, Myelocytes and Promyelocytes. Neutrophil Abs 5.33 1.95 - 7.25 K/uL 03/12/2024 2:09 PM CDT [facility] Lymphocyte Abs 0.74(L) 1.01 - 3.24 K/uL 03/12/2024 2:09 PM CDT [facility] Monocyte Abs 0.49 0.24 - 0.85 K/uL 03/12/2024 2:09 PM CDT [facility] Eosinophil Abs 0.14 0.02 - 0.50 K/uL 03/12/2024 2:09 PM CDT [facility] Basophil Abs 0.04 0.02 - 0.09 K/uL 03/12/2024 2:09 PM CDT [facility] IG Abs 0.05 0.01 - 0.12 K/uL 03/12/2024 2:09 PM CDT [facility] Blood Peripheral blood specimen / Unknown Venipuncture / Unknown 03/12/2024 1:52 PM CDT 03/12/2024 1:55 PM CDT Sergey Crouch APRN LAB BLOOD ORDERABL ES [facility] Unless otherwise noted, all lab tests performed by: Division of Pathology and Laboratory Medicine [address] [place] [phone] * Hepatitis C Virus Antibody (03/12/2024 1:52 PM CDT) [facility] HCVAb. Non Reactive Non Reactive 03/12/2024 3:22 PM CDT [facility] Blood Peripheral blood specimen / Unknown Venipuncture / Unknown 03/12/2024 1:52 PM CDT 03/12/2024 1:55 PM CDT Narrative [facility] - 03/12/2024 3:22 PM CDT Antibody detection in the immunocompromised and immunosuppressed population may be delayed or absent entirely. Therefore serial testing, correlation with other clinical findings, and supplemental testing (if available) should be taken into consideration when interpreting the results. Sergey Crouch APRN LAB BLOOD ORDERABL ES [facility] Unless otherwise noted, all lab tests performed by: Division of Pathology and Laboratory Medicine [address] [place] [phone] * Hepatic Function Panel (03/12/2024 1:52 PM CDT) Bilirubin Total 1.0 0.0 - 1.2 mg/dL 03/12/2024 2:35 PM CDT [facility] Comment:Indocyanine Green (I CG) may cause falsely elevated bilirubin results. Total and direct bilirubin must not be measured from samples containing indocyanine green. False elevation of total bilirubin can be seen in patients with IgG concentrations above 28 g/L. Bilirubin Direct 0.3 0.0 - 0.3 mg/dL 03/12/2024 2:35 PM CDT [facility] Comment:Indocyanine Green (I CG) may cause falsely elevated bilirubin results. Total and direct bilirubin must not be measured from samples containing indocyanine green. Bilirubin Indirect 0.7 0.0 - 0.9 mg/dL 03/12/2024 2:35 PM CDT [facility] Tot Protein 6.8 6.4 - 8.3 gm/dL 03/12/2024 2:35 PM CDT [facility] Alkaline Phosphatase 69 40 - 129 U/L 03/12/2024 2:35 PM CDT [facility] Albumin Level 4.5 3.5 - 5.2 gm/dL 03/12/2024 2:35 PM CDT [facility] AST 14 <=40 U/L 03/12/2024 2:35 PM CDT [facility] ALT 8 <=41 U/L 03/12/2024 2:35 PM CDT [facility] Blood Peripheral blood specimen / Unknown Venipuncture / Unknown 03/12/2024 1:52 PM CDT 03/12/2024 1:55 PM CDT Sergey Crouch [employer] LAB BLOOD ORDERABL ES [facility] Unless otherwise noted, all lab tests performed by: Division of Pathology and Laboratory Medicine [address] [place] [phone] * aPTT (03/12/2024 1:52 PM CDT) [facility] Activated PTT 28.4 24.1 - 35.5 second(s) 03/12/2024 2:33 PM CDT [facility] Blood Peripheral blood specimen / Unknown Venipuncture / Unknown 03/12/2024 1:52 PM CDT 03/12/2024 1:55 PM CDT Sergey Crouch APRN LAB BLOOD ORDERABL ES Performing Organization Address [facility] Co de Phone Number [facility] Unless otherwise noted, all lab tests performed by: Division of Pathology and Laboratory Medicine [address] [place] [id number] * AFP (03/12/2024 1:52 PM CDT) [facility] Alpha Fetoprotein (AFP) Tumor Marker <2.7 <=8.3 ng/mL 03/12/2024 2:41 PM CDT [facility] Blood Peripheral blood specimen / Unknown Venipuncture / Unknown 03/12/2024 1:52 PM CDT 03/12/2024 1:55 PM CDT Narrative [facility] - 03/12/2024 2:41 PM CDT Results greater than 45,875.00 ng/mL may not be reliable due to matrix effect with extended dilution as it exceeds the sluice tender's recommended limit. Caution should be exercised when interpreting such values and done in conjunction with clinical context. This test is measured by electrochemiluminescence immunoassay on Wilbert Issa immunoassay analyzers. Results obtained in different methods are not interchangeable. Sergey Crouch APRN LAB BLOOD ORDERABL ES Performing Organization Address City/[facility]/ZIP Co de Phone Number [facility] Unless otherwise noted, all lab tests performed by: Division of Pathology and Laboratory Medicine [address] [place] [phone] * (ABNORMAL) CA 19-9 (03/12/2024 1:52 PM CDT) [facility] CA 19-9 41.8(H) <=35.0 U/mL 03/12/2024 2:41 PM CDT [facility] Blood Peripheral blood specimen / Unknown Venipuncture / Unknown 03/12/2024 1:52 PM CDT 03/12/2024 1:55 PM CDT Narrative [facility] - 03/12/2024 2:41 PM CDT Results greater than 9500 U/mL may not be reliable due to matrix effect with extended dilution as it exceeds the sluice tender's recommended limit. Caution should be exercised when interpreting such values and done in conjunction with clinical context. This test is measured by electrochemiluminescence immunoassay on Wilbert Issa immunoassay analyzers. Results obtained in different methods are not interchangeable. Sergey Crouch APRN LAB BLOOD ORDERABL ES Performing Organization Address City/[facility]/ZIP Co de Phone Number [facility] Unless otherwise noted, all lab tests performed by: Division of Pathology and Laboratory Medicine [address] [place] [phone] * (ABNORMAL) Prothrombin Time with INR (03/12/2024 1:52 PM CDT) Prothrombin Time 14.4 11.9 - 14.5 second(s) 03/12/2024 2:33 PM CDT [facility] International Normalization Ratio 1.13(H) 0.87 - 1.12 03/12/2024 2:33 PM CDT [facility] Blood Peripheral blood specimen / Unknown Venipuncture / Unknown 03/12/2024 1:52 PM CDT 03/12/2024 1:55 PM CDT Sergey Crouch APRN LAB BLOOD ORDERABL ES [facility] Unless otherwise noted, all lab tests performed by: Division of Pathology and Laboratory Medicine [address] [place] [phone] * (ABNORMAL) BUN (03/12/2024 1:52 PM CDT) BUN 26(H) 6 - 23 mg/dL 03/12/2024 2:35 PM CDT [facility] Blood Peripheral blood specimen / Unknown Venipuncture / Unknown 03/12/2024 1:52 PM CDT 03/12/2024 1:55 PM CDT Sergey Crouch APRN LAB BLOOD ORDERABL ES Performing Organization Address City/[facility]/ZIP Co de Phone Number [facility] Unless otherwise noted, all lab tests performed by: Division of Pathology and Laboratory Medicine [address] [place] [phone] * Phosphorus Level (03/12/2024 1:52 PM CDT) Phosphorus Level 2.7 2.5 - 4.5 mg/dL 03/12/2024 2:35 PM CDT [facility] Blood Peripheral blood specimen / Unknown Venipuncture / Unknown 03/12/2024 1:52 PM CDT 03/12/2024 1:55 PM CDT Sergey Crouch APRN LAB BLOOD ORDERABL ES Performing Organization Address [facility] Co de Phone Number [facility] Unless otherwise noted, all lab tests performed by: Division of Pathology and Laboratory Medicine [address] [place] [phone] * Magnesium Level (03/12/2024 1:52 PM CDT) Magnesium Level 2.2 1.6 - 2.6 mg/dL 03/12/2024 2:35 PM CDT [facility] Blood Peripheral blood specimen / Unknown Venipuncture / Unknown 03/12/2024 1:52 PM CDT 03/12/2024 1:55 PM CDT Sergey Crouch APRN LAB BLOOD ORDERABL ES Performing Organization Address City/[facility]/ZIP Co de Phone Number [facility] Unless otherwise noted, all lab tests performed by: Division of Pathology and Laboratory Medicine [address] [place] [phone] * LDH (03/12/2024 1:52 PM CDT) LDH 172 135 - 225 U/L 03/12/2024 2:34 PM CDT [facility] Blood Peripheral blood specimen / Unknown Venipuncture / Unknown 03/12/2024 1:52 PM CDT 03/12/2024 1:55 PM CDT Narrative [facility] - 03/12/2024 2:34 PM CDT Results greater than 1651 U/L may not be reliable due to matrix effect with extended dilution as it exceeds the sluice tender's recommended limit. Caution should be exercised when interpreting such values and done in conjunction with clinical context. Sergey Crouch APRN LAB BLOOD ORDERABL ES [facility] Unless otherwise noted, all lab tests performed by: Division of Pathology and Laboratory Medicine [address] [place] [phone] * (ABNORMAL) Creatinine (03/12/2024 1:52 PM CDT) Creatinine 1.56(H) 0.67 - 1.17 mg/dL 03/12/2024 2:35 PM CDT [facility] eGFR 42(L) >=60 mL/min/1. 73 sq. m 03/12/2024 2:35 PM CDT [facility] Comment: The eGFRcr is calculated with the 2020 CKD-EPI creatinine equation using creatinine, patient's age, and sex for adults 18 years of age and older. Other factors, especially muscle mass, may affect accuracy and need to be considered. According to the Kidney Disease: Improving Global Outcomes (KDIGO) CKD Work Group 2012 Clinical Practice Guideline, chronic kidney disease (CKD) is defined as the abnormalities of kidney structure or function, present for more than 3 months, with implications for health. CKD should be classified by cause, GFR category, and albuminuria category. KDIGO guidelines provide the following GFR categories. Stage / Description / GFR mL/min/1.73 m2: G1* / Normal or high / >= 90 G2* / Mildly decreased / 60-89 G3a / Mildly to moderately decreased / 45-59 G3b / Moderately to severely decreased / 30-44 G4 / Severely decreased / 15-29 G5 / Kidney failure / <15 *In the absence of evidence of kidney damage, neither G1 nor G2 fulfill criteria for CKD. Blood Peripheral blood specimen / Unknown Venipuncture / Unknown 03/12/2024 1:52 PM CDT 03/12/2024 1:55 PM CDT Sergey Crouch APRN LAB BLOOD ORDERABL ES Performing Organization Address [facility] Co de Phone Number [facility] Unless otherwise noted, all lab tests performed by: Division of Pathology and Laboratory Medicine [address] [place] [phone] * CEA Ag (03/12/2024 1:52 PM CDT) Carcinoembryonic Antigen 1.5 <=3.8 ng/mL 03/12/2024 2:41 PM CDT [facility] Blood Peripheral blood specimen / Unknown Venipuncture / Unknown 03/12/2024 1:52 PM CDT 03/12/2024 1:55 PM CDT Narrative [facility] - 03/12/2024 2:41 PM CDT Reference Ranges (age 20-69 years): Non-smoker: 0.0 - 3.8 ng/mL Smoker: 0.0 - 5.5 ng/mL This test is measured by electrochemiluminescence immunoassay on Wilbert Issa immunoassay analyzers. Results obtained in different methods are not interchangeable. Sergey Crouch APRN LAB BLOOD ORDERABL ES Performing Organization Address [facility] de Phone Number [facility] Unless otherwise noted, all lab tests performed by: Division of Pathology and Laboratory Medicine [address] [place] [phone] * Calcium Level (03/12/2024 1:52 PM CDT) Calcium Level Total 9.8 8.2 - 10.2 mg/dL 03/12/2024 2:35 PM CDT [facility] Blood Peripheral blood specimen / Unknown Venipuncture / Unknown 03/12/2024 1:52 PM CDT 03/12/2024 1:55 PM CDT Sergey Crouch APRN LAB BLOOD ORDERABL ES Performing Organization Address [facility] Co de Phone Number [facility] Unless otherwise noted, all lab tests performed by: Division of Pathology and Laboratory Medicine [address] [place] [phone] * Electrolyte Panel (03/12/2024 1:52 PM CDT) Sodium Level 144 136 - 145 mmol/L 03/12/2024 2:35 PM CDT [facility] Potassium Level 3.6 3.4 - 4.5 mmol/L 03/12/2024 2:35 PM CDT [facility] Chloride 106 98 - 107 mmol/L 03/12/2024 2:35 PM CDT [facility] CO2 29 22 - 29 mmol/L 03/12/2024 2:35 PM CDT [facility] Anion Gap 9 4 - 14 mmol/L 03/12/2024 2:35 PM CDT [facility] Blood Peripheral blood specimen / Unknown Venipuncture / Unknown 03/12/2024 1:52 PM CDT 03/12/2024 1:55 PM CDT Sergey Crouch APRN LAB BLOOD ORDERABL ES Performing Organization Address [facility] de Phone Number [facility] Unless otherwise noted, all lab tests performed by: Division of Pathology and Laboratory Medicine [address] [place] [phone] * EKG, 12-Lead (Scheduled) (03/12/2024) Sergey Crouch APRN ECG ORDERABLES Performing Organization Address [facility] Co de Phone Number [facility] * OSI US Abdominal Complete (02/06/2024 4:15 PM CDT) Narrative Systemgenerated, Documentation - 03/07/2024 4:15 PM CDT Study acquired at another institution. For comparison only. No MD [facility] originated interpretation requested or available. Kalpana Mancera MD IMG OUTSIDE IMAGE ORDERABLES * OSI CT Abdomen and Pelvis (02/02/2024 4:15 PM CDT) Narrative Systemgenerated, Documentation - 03/07/2024 4:15 PM CDT Study acquired at another institution. For comparison only. No MD [facility] originated interpretation requested or available. Kalpana Mancera MD IMG OUTSIDE IMAGE ORDERABLES after 04/28/2023 Care Teams Intellectual Property Legal Assistant Relationship Specialty Start Date End Date Apolinar Bird MD [address] [place] [phone] [email or web address] PCP - External Referring Internal Medicine 02/20/24 Kalpana Mancera MD [address] [place] [phone] [email or web address] PCP - General Internal Medicine 03/03/24 Ira Lancastre RN [address] [place] [address] [email or web address] Intake Nurse Navigator Nursing 02/20/24 02/27/24
[2024-04-27 21:10] LABS: Absolute Lymphocytes (CBC) 0.3 K/uL (0.7-4.9); Absolute Monocytes 0.7 K/uL (0.1-1.3); Absolute Neutrophil 6.5 K/uL (1.8-8.0); Basophils % 0.3 % (0-1.3); Eosinophils % 0.5 % (0-4.4); Hemoglobin 12.3 g/dL (13.6-17.9); Lymphocytes % 3.4 % (15.3-44.8); MCH 30.9 pg (27.0-35.0); MCHC 34.3 g/dL (32.0-36.0); MCV 90.3 fL (80-100); MPV 8.2 fL (7.6-11.3); Monocytes % 9.1 % (3.3-12.3); Neutrophils % 86.7 % (41.7-73.7); Platelets 160 thou/uL (152-406); RBC Red Blood Cell Count 3.99 M/uL (4.33-5.43); Red Cell Distribution Width 13.2 % (12.1-15.2)
[2024-04-27] MEDS ORDERED: THIAMINE 200 MG/2 ML INJ ONE (21:15)
[2024-04-27] MEDS ORDERED: NA CHLORIDE 0.9% 1,000 ML ONE (21:15)
[2024-04-27] MEDS ORDERED: NA CHLORIDE 0.9% 100 ML ONE (21:17)
[2024-04-27 21:29] LABS: PT Prothrombin Time 14.5 SECONDS (9.4-12.5); Protime INR 1.3
[2024-04-27 21:33] LABS: ALT/SGPT 17 U/L (16-61); AST/SGOT 17 U/L (15-37); Albumin 3.6 g/dL (3.4-5.0); Albumin/Globulin Ratio 1.1 (1.1-1.8); Alkaline Phosphatase 73 U/L (45-117); Anion Gap 6.8 mEq/L (5.0-15.0); BUN Blood Urea Nitrogen 17 mg/dL (7-18); Bicarbonate 25 mEq/L (21-32); Bilirubin Direct 0.4 mg/dL (0-0.2); Bilirubin Indirect, Calculated 1.1 mg/dL (0.2-0.8); Bilirubin Total 1.5 mg/dL (0.2-1.0); Globulin 3.2 g/dL (2.3-3.5); Glomerular Filtration Rate 49 ml/min (=/>90); Glucose Level 111 mg/dL (74-106); Lipase 18 U/L (13-75); NT PRO-BNP 1285 pg/mL (<450); Potassium 3.8 mEq/L (3.5-5.1); Protein, Total 6.8 g/dL (6.4-8.2); Sodium Level 139 mEq/L (136-145); Troponin High Sensitivity 14.7 pg/mL (<58.9)
--- NOTE | 2024-04-27 22:27 | RAD REPORT ---
EXAMINATION: CT HEAD WITHOUT CONTRAST CLINICAL INDICATION: Male, 88 years old.[place]INING [place] TECHNIQUE: Axial CT images from the skull base to the vertex without intravenous contrast. Coronal an d sagittal reformatted images were created from the data set. One or more of the following dose reduction techniques were used: Automated exposure control, adjustment of the mA and/or kV according to patient size, and/or iterative reconstruction. Unless otherwise specified, incidental findings do not require dedicated imaging follow-up. [id number]. COMPARISON: No prior exam. FINDINGS: INTRACRANIAL: No acute intracranial hemorrhage. No hydrocephalus. No mass effect or midline shift. Mi ld chronic small vessel ischemic changes. Cerebral atrophy. VASCULATURE: No visualized abnormalities in the arteries or dural venous sinuses. SCALP/SKULL: No significant soft tissue or osseous abnormalities. SINUSES: Ethmoid air cell thickening. Prior FESS. IMPRESSION: No acute intracranial abnormality.
--- NOTE | 2024-04-27 22:32 | RAD REPORT ---
EXAM: CT CHEST, ABDOMEN AND PELVIS WITHOUT CONTRAST CLINICAL INDICATION: Male, 88 years [facility] General weakness, liver CA Bed Name: 3 TECHNIQUE: CT chest, abdomen and pelvis was performed, with IV contrast, as per department protocol. Axial, sagittal and coronal reconstructions were obtained. One or more of the following dose reduction techniques were used: Automated exposure control, adjustment of the mA and/or kV according to the patient size, and/or iterative reconstruction. Unless otherwise specified, incidental findings do not require dedicated imaging follow-up. [id number]. COMPARISON: CT abdomen/pelvis 02/02/2024 FINDINGS: Chest: LOWER NECK/CHEST WALL: Visualized thyroid gland and soft tissues are normal. LUNGS AND AIRWAYS: Motion limited. No definite acute process. PLEURA: No pleural effusion. No pneumothorax. Hemidiaphragms are normally positioned. MEDIASTINUM AND LYMPH NODES: No mediastinal mass or fluid collection. Normal size mediastinal, hilar, and axillary lymph nodes. THORACIC AORTA: Normal caliber and configuration. PULMONARY ARTERIES: Normal caliber. HEART: Coronary artery calcifications. Abdomen/Pelvis LIVER: Mass in the peripheral aspect of the right hepatic lobe measures approximately 4.5 cm and is s imilar in size to a 04/13/2024. This has some adjacent capsular retraction. GALLBLADDER/BILE DUCTS: Cholelithiasis. No CT evidence of acute cholecystitis. PANCREAS: No mass, ductal dilation, or chelsea-pancreatic fluid. SPLEEN: Normal size. No focal lesion. ADRENALS: Normal; no mass. KIDNEYS AND URETERS: Right nephrectomy. Unremarkable left kidney. GASTROINTESTINAL TRACT: Stomach is non-dilated. Small bowel has normal course and caliber. No colonic wall thickening or pericolonic inflammatory changes. PERITONEUM: Fluid present in the left internal canal. Fat-containing right inguinal hernia. Fat-conta ining left inguinal hernia. LYMPH NODES: No lymphadenopathy. ABDOMINAL AORTA AND OTHER VESSELS: Normal caliber aorta and IVC. Atherosclerosis. URINARY BLADDER: Unremarkable REPRODUCTIVE ORGANS: The median lobe of the prostate bulges into the base of the bladder. MUSCULOSKELETAL: No acute or suspicious osseous abnormality. Multilevel degenerative changes are pres ent in the spine. ADDITIONAL FINDINGS: None IMPRESSION: 1. No acute findings within the chest, abdomen, or pelvis. 2. Indeterminate right hepatic lobe mass which is similar in size to a 04/13/2024. Neoplasm not exclu ded. This can be further evaluated with hepatic protocol MRI. Reported By: Uriel Tanally Signed: 04/27/2024 10:30 PM
--- NOTE | 2024-04-27 22:33 | RAD REPORT ---
EXAMINATION: ONE VIEW CHEST XR CLINICAL INDICATION: Male, 88 years old.CHEST PAIN TECHNIQUE: 1 View, AP supine, X-ray of the chest was performed. [id number]. COMPARISON: 03/16/2014 FINDINGS: Lungs and pleura: Clear lungs. No effusion. Heart and mediastinum: Normal heart size. Unremarkable mediastinal contours. Osseous structures: No acute abnormality. Tubes/lines: None Other: None. IMPRESSION: No acute intrathoracic abnormality.
[2024-04-27 22:46] LABS: Band Neutrophils 30 % (0-1); Differential Total Cells Count 100; Lymphocytes 3 % (15-42); Monocytes 4 % (0-10); Reactive Lymphocytes 2 %; Segmented Neutrophils 61 % (40-80)
[2024-04-27 22:47] LABS: Blood Morphology Comment NOT SEEN (NOT SEEN); Platelet Estimate ADEQ
[2024-04-27] MEDS ORDERED: HYDRALAZINE HCL 25 MG TABLET ONE (23:18)
--- NOTE | 2024-04-27 23:18 | EDPHYS ---
Physician Documentation [facility] Name: Kevin Hurst Age: 88 yrs Sex: Male : 1935 Arrival Date: 04/27/2024 Time: 20:43 Bed 3 Private MD: ED Physician Burt Mckeon HPI: 04/27 20:46 This 88 yrs old Male presents to ER via Unassigned with complaints of General sp4 Weakness, multiple falls. 04/28 02:01 Patient is a very pleasant 88-year-old male who presents to the emergency room by sp4 ambulance with worsening generalized weakness and near syncopal episode and fall in the bathroom.. In the past several weeks as reported by patient's relatives patient has been falling down feeling unwell and weak. Primary MD is Dr. Pelon Jiang . Historical: - Allergies: 04/27 21:07 No Known Allergies; al5 - Home Meds: 21:07 amlodipine 5 mg tablet [Active]; brimonidine 0.2 % ophthalmic (eye) drops [Active]; al5 doxazosin 2 mg Oral tablet [Active]; famotidine 40 mg Oral tablet [Active]; latanoprost 0.005 % ophthalmic (eye) drops [Active]; levocetirizine 5 mg Oral tablet [Active]; Lisinopril 12 mg Oral [Active]; metoprolol succinate 25 mg Oral Tablet [Active]; omeprazole 20 mg Oral tablet [Active]; pravastatin 20 mg Oral tablet [Active]; timolol maleate 0.5 % Opht Drops [Active]; - PMHx: 21:07 GERD; ULCER; Hypertensive disorder; Hypercholesterolemia; al5 - PSHx: 21:07 Appendectomy; Cataract Surgery- right eye; hernia repair; prostate; Right Nephrectomy; al5 Tonsillectomy; - Immunization history:: Adult Immunizations up to date. - Infectious Disease History:: Denies. - Social history:: Smoking status: Patient denies any tobacco usage or history of. - Family history:: not pertinent. ROS: 04/28 02:03 Constitutional: Negative for fever, chills, and weight loss, positive for generalized sp4 weakness, positive for balance problems, positive for falls at home, positive for near syncopal episode All other systems are negative, Exam: 02:03 Constitutional: This is a well developed, well nourished patient who is awake, alert, sp4 and in no acute distress. Head/Face: Normocephalic, atraumatic. Eyes: Pupils equal round and reactive to light, extra-ocular motions intact. Lids and lashes normal. Conjunctiva and sclera are not injected. Cornea within normal limits. Periorbital areas with no swelling, redness, or edema. ENT: Nares patent. No nasal discharge, no septal abnormalities noted. Tympanic membranes are normal and external auditory canals are clear. Oropharynx with no redness, swelling, or masses, exudates, or evidence of obstruction, uvula midline. Mucous membranes moist. Neck: Trachea midline, no thyromegaly or masses palpated, and no cervical lymphadenopathy. Supple, full range of motion without nuchal rigidity, or vertebral point tenderness. Chest/axilla: Normal chest wall appearance and motion. Nontender with no deformity. No lesions are appreciated. Cardiovascular: Regular rate and rhythm with a normal S1 and S2. No gallops, murmurs, or rubs. Normal PMI, no JVD. No pulse deficits. Respiratory: Lungs have equal breath sounds bilaterally, clear to auscultation and percussion. No rales, rhonchi or wheezes noted. No increased work of breathing, no retractions or nasal flaring. Abdomen/GI: Soft, with normal bowel sounds. No distension or tympany. No guarding or rebound. No evidence of tenderness throughout. Back: No spinal tenderness. No costovertebral tenderness. Skin: Warm, dry with normal turgor. Normal color with no rashes, no lesions, and no evidence of cellulitis. MS/ Extremity: Pulses equal, no cyanosis. Neurovascular intact. Full, normal range of motion. Neuro: Awake and alert, GCS 15, oriented to person, place, time, Cranial nerves II-XII grossly intact. Motor strength 5/5 in all extremities. Sensory grossly intact. Patient does have unsteady gait with difficulty with balance. Ambulates with assistance only. Psych: Awake, alert, with orientation to person, place and time. Behavior, mood, and affect are within normal limits 02:03 ECG was reviewed by the Attending Physician. Positive for EKG at 2059 Vital Signs: 04/27 20:46 BP 193 / 80; Pulse 74; Resp 16; Temp 98.6; Pulse Ox 96% on R/A; Weight 74.84 kg; Height al5 5 ft. 11 in. ; 21:30 BP 170 / 100; Pulse 73; Resp 18; Pulse Ox 96% on R/A; al5 21:45 BP 163 / 68; Pulse 68; Resp 17; Pulse Ox 97% on R/A; al5 22:00 BP 163 / 89; Pulse 69; Resp 17; Pulse Ox 95% on R/A; al5 22:30 BP 166 / 70; Pulse 70; Resp 17; Pulse Ox 90% on R/A; al5 23:00 BP 168 / 70; Pulse 69; Resp 18; Pulse Ox 93% on R/A; al5 23:45 BP 170 / 67; Pulse 78; Resp 20 S; Pulse Ox 94% on R/A; Pain 0/10; mt4 04/28 00:18 BP 163 / 68; Pulse 64; Resp 20; Pulse Ox 93% on R/A; mt4 00:30 BP 169 / 73; Pulse 67; Resp 16; Pulse Ox 94% on R/A; al5 01:45 BP 165 / 70; mt4 02:40 BP 164 / 59; Pulse 71; Resp 19; Pulse Ox 95% on R/A; mt4 04/27 20:46 Body Mass Index 23.01 (74.84 kg, 180.34 cm) al5 23:45 Pain Scale: Adult mt4 MDM: 04/27 20:49 Medical Screening Exam initiated sp4 22:48 ED course: EXAMINATION: CT HEAD WITHOUT CONTRAST CLINICAL INDICATION: Male, 88 years sp4 old.DECLINING STATE TECHNIQUE: Axial CT images from the skull base to the vertex without intravenous contrast. Coronal and sagittal reformatted images were created from the data set. One or more of the following dose reduction techniques were used: Automated exposure control, adjustment of the mA and/or kV according to patient size, and/or iterative reconstruction. Unless otherwise specified, incidental findings do not require dedicated imaging follow-up. [id number]. COMPARISON: No prior exam. FINDINGS: INTRACRANIAL: No acute intracranial hemorrhage. No hydrocephalus. No mass effect or midline shift. Mild chronic small vessel ischemic changes. Cerebral atrophy. VASCULATURE: No visualized abnormalities in the arteries or dural venous sinuses. SCALP/SKULL: No significant soft tissue or osseous abnormalities. SINUSES: Ethmoid air cell thickening. Prior FESS. IMPRESSION: No acute intracranial abnormality. . 22:51 ED course: EXAMINATION: ONE VIEW CHEST XR CLINICAL INDICATION: Male, 88 years old.CHEST sp4 PAIN TECHNIQUE: 1 View, AP supine, X-ray of the chest was performed. [id number]. COMPARISON: 03/16/2014 FINDINGS: Lungs and pleura: Clear lungs. No effusion. Heart and mediastinum: Normal heart size. Unremarkable mediastinal contours. Osseous structures: No acute abnormality. Tubes/lines: None Other: None. IMPRESSION: No acute intrathoracic abnormality. . ED course: CT report - IMPRESSION: 1. No acute findings within the chest, abdomen, or pelvis. 2. Indeterminate right hepatic lobe mass which is similar in size to a 04/13/2024. Neoplasm not excluded. This can be further evaluated with hepatic protocol MRI. . 22:57 ED course: EXAM DESCRIPTION: US - Abdomen Exam Complete - 02/06/2024 9:37 am CLINICAL sp4 HISTORY: R16.0 COMPARISON: Abdomen Pelvis Wo Contrast dated 02/02/2024; CTABDOMEN PELVIS WO CONTRAST dated 02/01/2015 TECHNIQUE: Sonographic grayscale and color flow images of the abdomen were obtained. FINDINGS: Evaluation of the midline structures is limited given over shadowing ribs and bowel gas. Normal appearance of the visualized aspects of the pancreatic head. The visualized aspects of the aorta are of normal caliber. The liver is normal in size with smooth contour. Normal echogenicity and texture. Ill-defined heterogeneous partially hypoechoic 3.5 x 3.6 x 2.3 cm peripheral right lobe mass, correlating to the CT finding, not well characterized. No intrahepatic biliary ductal dilation. Spleen is normal in size and shows no focal suspicious findings. Gallbladder size is normal. Numerous shadowing stones near the neck. No wall thickening, or pericholecystic fluid. Common bile duct measures 4 mm, normal, with no common duct stone identified. Status post right nephrectomy. No hydronephrosis or suspicious mass on the left. Normal-sized left kidney No echogenic calculi. No ascites or bulky lymphadenopathy. IMPRESSION: Ill-defined subcapsular peripheral right liver lobe 3.6 cm mildly hypoechoic mass, not well characterized. Additional evaluation by liver mass protocol CT or MRI would be helpful to exclude malignancy. Cholelithiasis. Status post right nephrectomy. . 04/28 02:07 Differential Diagnosis altered mental status, sepsis, flu, Balance disorder. Data sp4 reviewed: vital signs, nurses notes, old medical records, lab test result(s), EKG, radiologic studies, CT scan, plain films. Consideration of Admission/Observation Patient was admitted/placed on observation. Escalation of care including admission/observation considered. Management of patient was discussed with the following: Primary Care Provider: Pelon Ortega MD . ED course: Patient is stable for admission for inpatient management and further investigation.. 04/27 20:46 Order name: Basic Metabolic Panel; Complete Time: 22:16 4 04/27 20:46 Order name: CBC with Diff; Complete Time: 22:54 [facility] 04/27 20:46 Order name: LFT's; Complete Time: 22:16 [facility] 04/27 20:46 Order name: Magnesium; Complete Time: 22:16 4 04/27 20:46 Order name: NT PRO-BNP; Complete Time: 22:16 4 04/27 20:46 Order name: PT-INR; Complete Time: 22:16 4 04/27 20:46 Order name: Troponin HS; Complete Time: 22:16 4 04/27 20:48 Order name: Alcohol Level; Complete Time: 22:16 4 04/27 20:48 Order name: Urinalysis W/Microscopic; Complete Time: 00:51 4 04/27 20:48 Order name: Salicylate; Complete Time: 22:16 4 04/27 20:48 Order name: AMMONIA; Complete Time: 22:16 4 04/27 21:15 Order name: C-Reactive Protein; Complete Time: 22:16 [facility] 04/27 21:15 Order name: Acetaminophen Level; Complete Time: 22:16 [facility] 04/27 21:15 Order name: Lipase; Complete Time: 22:16 [facility] 04/27 21:16 Order name: Manual Differential; Complete Time: 22:54 [facility] 04/27 23:07 Order name: TSH; Complete Time: 00:51 [facility] 04/27 23:07 Order name: T4 Free; Complete Time: 00:51 sp4 04/27 23:07 Order name: Troponin High Sensitivity; Complete Time: 00:51 4 04/27 20:46 Order name: XRAY Chest (1 view); Complete Time: 22:54 4 04/27 20:46 Order name: CT Head Brain wo Cont; Complete Time: 22:54 4 04/27 20:47 Order name: CT Chest, Abdomen, Pelvis - W/Contrast; Complete Time: 22:54 4 04/27 20:46 Order name: Cardiac monitoring; Complete Time: 21:06 sp4 04/27 20:46 Order name: EKG - Nurse/Tech; Complete Time: 21:06 4 04/27 20:46 Order name: IV Saline Lock; Complete Time: 20:59 4 04/27 20:46 Order name: Labs collected and sent; Complete Time: 21:19 4 04/27 20:46 Order name: O2 Per Protocol; Complete Time: 20:58 4 04/27 20:46 Order name: O2 Sat Monitoring; Complete Time: 20:58 4 04/27 23:09 Order name: Straight Cath - Urine; Complete Time: 23:45 sp4 EC:03 Rate is 70 beats/min. Rhythm is regular, Sinus Rhythm with PACs. QRS [place] is Normal. AL sp4 interval is normal. QRS interval is normal. QT interval is normal. No Q waves. T waves are Normal. No ST changes noted. Clinical impression: No evidence of ischemia. Interpreted by me. Reviewed by me. Administered Medications: 04/27 21:25 Drug: NS 0.9% IV 1000 ml IV at 75 ml/hr continuous Route: IV; Rate: 75 ml/hr; Site: [facility] right antecubital; 04/28 00:17 Follow up: Response: No adverse reaction; IV Status: Completed infusion; IV Intake: mt4 1000ml 04/27 21:25 Drug: Thiamine IV 100 mg IV at 125 bolus once Route: IV; Rate: 125 bolus; Site: [facility]; 04/28 00:17 Follow up: Response: No adverse reaction; IV Status: Completed infusion; IV Intake: mt4 100ml 04/27 23:31 Drug: HydrALAZINE PO 25 mg PO once Route: PO; [facility] 04/28 00:16 Follow up: Response: No adverse reaction mt4 Disposition Summary: 04/27/24 23:17 Hospitalization Ordered Notes: Hospitalization Status: Inpatient Admission sp4 Provider: Apolinar Bird Location: Telemetry/MedSurg (Inpatient) sp4 Condition: Fair sp4 Problem: new sp4 Symptoms: are unchanged sp4 Bed/Room Type: Standard sp4 Room Assignment: 225(04/28/24 01:39) [facility] Diagnosis - Muscle weakness (generalized) sp4 - Acute generalized weakness, near syncope, acute fall at home,, liver mass sp4 Forms: - Medication Reconciliation Form sp4 - SBAR form sp4 - Leadership Thank You Letter sp4 Signatures: Dispatcher [employer] Adriana Ca, RN RN Burt Mckeon MD MD sp4 Sherley Aguirre [facility] Brandon Hagen RN RN mt4 Annemarie Davis RN RN al5 Corrections: (The following items were deleted from the chart) 04/27 20:47 20:47 BASIC METABOLIC PANEL+C.LAB.BRZ ordered. EDMS EDMS 20:47 20:47 CBC+H.LAB.BRZ ordered. EDMS EDMS 20:47 20:47 HEPATIC FUNCTION+C.LAB.BRZ ordered. EDMS EDMS 20:47 20:47 MAGNESIUM+C.LAB.BRZ ordered. EDMS EDMS 20:47 20:47 PROBNP+C.LAB.BRZ ordered. EDMS EDMS 20:47 20:47 PROTIME (+INR)+COAG.LAB.BRZ ordered. EDMS EDMS 20:47 20:47 Troponin High Sensitivity+C.LAB.BRZ ordered. EDMS EDMS 20:47 20:47 Chest Single View+RAD.RAD.BRZ ordered. EDMS EDMS 20:47 20:47 Head Brain Wo Cont+CT.RAD.BRZ ordered. EDMS EDMS 21:15 20:48 ACETAMINOPHEN+C.LAB.BRZ ordered. EDMS EDMS 21:15 20:48 LIPASE+C.LAB.BRZ ordered. EDMS EDMS 21:15 20:49 C-REACTIVE PROTEIN+C.LAB.BRZ ordered. EDMS EDMS 23:07 23:07 THYROID STIMULAT HORMONE+C.LAB.BRZ ordered. EDMS EDMS 07 23:07 T4 FREE+C.LAB.BRZ ordered. EDMS EDMS 04/28 01:37 11 23:17 sp4 cg 04/28 01:39 01:37 225 cg kmf
--- NOTE | 2024-04-27 23:18 | ER ---
Nurse's Notes [facility] Name: Kevin Hurst Age: 88 yrs Sex: Male : 1935 Arrival Date: 04/27/2024 Time: 20:43 Bed 3 Private MD: Diagnosis: Muscle weakness (generalized);Acute generalized weakness, near syncope, acute fall at home,, liver mass Presentation: 04/27 20:46 Chief complaint: EMS states: patient has had multiple falls this past week and has been al5 having generalized weakness and bilateral lower extremity edema. patient c/o knee pain. Coronavirus screen: At this time, the client does not indicate any symptoms associated with coronavirus-19. Ebola Screen: No symptoms or risks identified at this time. Initial Sepsis Screen: Does the patient meet any 2 criteria? No. Patient's initial sepsis screen is negative. Does the patient have a suspected source of infection? No. Patient's initial sepsis screen is negative. Risk Assessment: Do you want to hurt yourself or someone else? Patient reports no desire to harm self or others. Onset of symptoms was April 27, 2024. 20:46 Method Of Arrival: EMS: [facility] al5 20:46 Acuity: DONALD 3 al5 Triage Assessment: 21:09 General: Appears in no apparent distress. Behavior is calm, cooperative. Pain: al5 Complains of pain in right leg and left leg. EENT: No signs and/or symptoms were reported regarding the EENT system. Neuro: Level of Consciousness is awake, alert, obeys commands, Oriented to person, place, time, situation. Cardiovascular: Capillary refill < 3 seconds Patient's skin is warm and dry. Respiratory: Airway is patent Respiratory effort is even, unlabored, Respiratory pattern is regular, symmetrical. GI: No signs and/or symptoms were reported involving the gastrointestinal system. Abdomen is flat, non-distended. : No signs and/or symptoms were reported regarding the genitourinary system. Derm: Skin is intact, Skin is pink, warm \T\ dry. normal. Derm: bilateral lower extremity edema. Musculoskeletal: Reports pain in right leg and left leg. Historical: - Allergies: 21:07 No Known Allergies; al5 - Home Meds: 21:07 amlodipine 5 mg tablet [Active]; brimonidine 0.2 % ophthalmic (eye) drops [Active]; al5 doxazosin 2 mg Oral tablet [Active]; famotidine 40 mg Oral tablet [Active]; latanoprost 0.005 % ophthalmic (eye) drops [Active]; levocetirizine 5 mg Oral tablet [Active]; Lisinopril 12 mg Oral [Active]; metoprolol succinate 25 mg Oral Tablet [Active]; omeprazole 20 mg Oral tablet [Active]; pravastatin 20 mg Oral tablet [Active]; timolol maleate 0.5 % Opht Drops [Active]; - PMHx: 21:07 GERD; ULCER; Hypertensive disorder; Hypercholesterolemia; al5 - PSHx: 21:07 Appendectomy; Cataract Surgery- right eye; hernia repair; prostate; Right Nephrectomy; al5 Tonsillectomy; - Immunization history:: Adult Immunizations up to date. - Infectious Disease History:: Denies. - Social history:: Smoking status: Patient denies any tobacco usage or history of. - Family history:: not pertinent. Screenin:11 [facility] ED Fall Risk Assessment (Adult) History of falling in the last 3 months, al5 including since admission Yes- single mechanical fall (1 pt) Confusion or Disorientation No (0 pts) Intoxicated or Sedated No (0 pts) Impaired Gait Yes (1 pt) Mobility Assist Device Used No (0 pt) Altered Elimination No (0 pt) Score/Fall Risk Level 0 - 2 = Low Risk Oriented to surroundings, Maintained a safe environment, Hourly rounding (assess needs \T\ fall precautionary measures) done. Abuse screen: Denies threats or abuse. Denies injuries from another. Nutritional screening: No deficits noted. Tuberculosis screening: No symptoms or risk factors identified. Assessment: 21:11 Reassessment: see triage assessment. al5 23:01 Reassessment: Patient appears in no apparent distress at this time. No changes from al5 previously documented assessment. Patient and/or family updated on plan of care and expected duration. Pain level reassessed. Patient is alert, oriented x 3, equal unlabored respirations, skin warm/dry/pink. 04/28 00:54 Reassessment: Patient appears in no apparent distress at this time. No changes from al5 previously documented assessment. Patient and/or family updated on plan of care and expected duration. Pain level reassessed. Patient is alert, oriented x 3, equal unlabored respirations, skin warm/dry/pink. Vital Signs: 04/27 20:46 BP 193 / 80; Pulse 74; Resp 16; Temp 98.6; Pulse Ox 96% on R/A; Weight 74.84 kg; Height al5 5 ft. 11 in. ; 21:30 BP 170 / 100; Pulse 73; Resp 18; Pulse Ox 96% on R/A; al5 21:45 BP 163 / 68; Pulse 68; Resp 17; Pulse Ox 97% on R/A; al5 22:00 BP 163 / 89; Pulse 69; Resp 17; Pulse Ox 95% on R/A; al5 22:30 BP 166 / 70; Pulse 70; Resp 17; Pulse Ox 90% on R/A; al5 23:00 BP 168 / 70; Pulse 69; Resp 18; Pulse Ox 93% on R/A; al5 23:45 BP 170 / 67; Pulse 78; Resp 20 S; Pulse Ox 94% on R/A; Pain 0/10; mt4 04/28 00:18 BP 163 / 68; Pulse 64; Resp 20; Pulse Ox 93% on R/A; mt4 00:30 BP 169 / 73; Pulse 67; Resp 16; Pulse Ox 94% on R/A; al5 01:45 BP 165 / 70; mt4 02:40 BP 164 / 59; Pulse 71; Resp 19; Pulse Ox 95% on R/A; mt4 04/27 20:46 Body Mass Index 23.01 (74.84 kg, 180.34 cm) al5 23:45 Pain Scale: Adult mt4 ED Course: 04/27 20:45 Patient arrived in ED. al5 20:46 Burt Mckeon MD is Attending Physician. sp4 20:55 Triage completed. al5 20:58 Annemarie Davis, KARLOS is Primary Nurse. al5 21:07 EKG done, by technical administrator. af3 21:11 Arm band placed on right wrist. Patient placed in the treatment room, on a stretcher. al5 21:11 Patient has correct armband on for positive identification. Bed in low position. Call al5 light in reach. Side rails up X2. Provided Education on: plan of care. 21:12 No provider procedures requiring assistance completed. Maintain EMS IV. Dressing al5 intact. Good blood return noted. Site clean \T\ dry. Gauge \T\ site: 20G RAC. 22:20 CT Head Brain wo Cont In Process Unspecified. EDMS 22:20 CT Chest, Abdomen, Pelvis - W/Contrast In Process Unspecified. EDMS 22:28 XRAY Chest (1 view) In Process Unspecified. EDMS 23:17 Apolinar Bird MD is Hospitalizing Provider. sp4 04/28 02:56 Patient admitted, IV remains in place. ha1 Administered Medications: 04/27 21:25 Drug: NS 0.9% IV 1000 ml IV at 75 ml/hr continuous Route: IV; Rate: 75 ml/hr; Site: mt4 right antecubital; 04/28 00:17 Follow up: Response: No adverse reaction; IV Status: Completed infusion; IV Intake: mt4 1000ml 04/27 21:25 Drug: Thiamine IV 100 mg IV at 125 bolus once Route: IV; Rate: 125 bolus; Site: right mt4 antecubital; 04/28 00:17 Follow up: Response: No adverse reaction; IV Status: Completed infusion; IV Intake: mt4 100ml 04/27 23:31 Drug: HydrALAZINE PO 25 mg PO once Route: PO; mt4 04/28 00:16 Follow up: Response: No adverse reaction mt4 Medication: 04/27 21:11 VIS not applicable for this client. al5 Intake: 04/28 00:17 IV: 100ml; Total: 100ml. mt4 00:17 IV: 1000ml; Total: 1100ml. mt4 Outcome: 04/27 23:17 Decision to Hospitalize by Provider. sp4 04/28 02:56 Admitted to Med/surg accompanied by nurse, via stretcher, room 225, with chart, ha1 Condition: stable Instructed on the need for admit, Demonstrated understanding of instructions, 02:56 Patient left the ED. ha1 Signatures: Dispatcher [employer] EDMS Yessy Salmeron RN RN ha1 Burt Mkceon MD MD sp4 Brandon Hagen RN RN mt4 Annemarie Davis RN RN al5 Luisana Rinaldi
[2024-04-28] LABS: Renal Epithelial <5 /HPF (None Seen); Specific Gravity > 1.030 (1.005-1.030); Sqamous Epithelial <5 /HPF (None Seen); Transitional Epithelial <5 /HPF (None Seen); Urine Bacteria None Seen /HPF (<20); Urine Bilirubin NEGATIVE (Negative); Urine Blood 2+ (Negative); Urine Clarity Clear (Clear); Urine Color Light-Yellow (Yellow); Urine Culture Reflex Order NOT NEEDED; Urine Glucose NEGATIVE (Negative); Urine Ketones 1+ (Negative); Urine Micro Reflex YN NO BILL MICROSCOPIC; Urine Mucus Slight /HPF (None Seen); Urine Nitrite NEGATIVE (Negative); Urine Protein 1+ (Negative); Urine RBC 21-50 /HPF (None Seen); Urine Urobilinogen Normal (Normal); Urine WBC <5 /HPF (<5)
[2024-04-28 00:16] LABS: Thyroid Stimulating Hormone 1.65 uIU/mL (0.358-3.740); Troponin High Sensitivity 20.6 pg/mL (<58.9)
[2024-04-28] MEDS ORDERED: ALBUTEROL 2.5 MG/3 ML NEB SOL NEB PRN (02:07)
[2024-04-28] MEDS ORDERED: ACETAMINOPHEN 325 MG TABLET PO PRN (02:07)
[2024-04-28] MEDS ORDERED: ONDANSETRON 4 MG/2 ML VIAL IV PRN (02:07)
[2024-04-28 02:55] VITALS: BMI 25.7
[2024-04-28] MEDS: D5 0.45 NS 1,000 ML IV SCH (03:26)
[2024-04-28] MEDS ORDERED: HOME MED 1 EA UNK (Omeprazole [Omeprazole] 20 MG Capsule.Dr) PO SCH (09:00)
[2024-04-28] MEDS ORDERED: CETIRIZINE HCL 5 MG TABLET PO SCH (09:00)
[2024-04-28] MEDS: LACTULOSE 20 GM/30 ML UCUP PO SCH (09:22)
[2024-04-28] MEDS: lisinopriL 20 MG TAB PO SCH (09:22)
[2024-04-28] MEDS: TAMSULOSIN 0.4 MG SR CAP PO SCH (09:23)
[2024-04-28] MEDS: METOPROLOL XL 25 MG TAB PO SCH (09:23)
[2024-04-28] MEDS: TIMOLOL MALEATE 0.5% OPTH 5 ML BTL EACH EYE SCH (09:23)
[2024-04-28] MEDS: AMLODIPINE 5 MG TAB PO SCH (09:24)
[2024-04-28] MEDS: PANTOPRAZOLE 40MG TABLET PO SCH (09:24)
[2024-04-28] MEDS ORDERED: HOME MED 1 EA UNK (Levocetirizine Dihydrochloride [Xyzal] 5 MG Tablet) PO SCH (21:00)
[2024-04-28] MEDS: LATANOPROST 0.005% 2.5ML OPTH OPTH SCH (21:00)
[2024-04-28] MEDS ORDERED: PRAVASTATIN 10 MG PO SCH (21:00)
[2024-04-28] MEDS: CETIRIZINE HCL 5 MG TABLET PO SCH (21:13)
[2024-04-28] MEDS: ATORVASTATIN 10 MG TAB PO SCH (21:13)
[2024-04-28] MEDS: FAMOTIDINE 20 MG TAB PO SCH (21:14)
[2024-04-28] MEDS: DOXAZOSIN 2 MG TAB PO SCH (21:14)
[2024-04-29 04:55] LABS: Anion Gap 7.3 mEq/L (5.0-15.0); Potassium 3.3 mEq/L (3.5-5.1)
[2024-04-29] MEDS: HYDRALAZINE HCL 20 MG/ML VIAL IV PRN (05:29)
--- NOTE | 2024-04-29 05:32 | HP ---
Date of Admission: 04/28/2024 Chief Complaint: Generalized weakness and recurrent falls. History Of Present Illness: This is an 88-year-old very pleasant male patient who was admitted to [facility] after he came into emergency room yesterday with worsening generalized weakness and recurr ent falls at home. With one of the fall yesterday, he was not able to get up from the floor and he w as brought into ER. After he was evaluated, I was contacted from emergency room by ER physician requ esting admission to the hospital. When I saw him this morning, he was sleeping, easily arousable, ap peared extremely weak and somewhat confused to start with when he first woke up, but then subsequentl y he was more clear. I also communicated details with the patient's who also reports that the p atient is having increasing worsening generalized weakness for last couple of months or so, but latel y it is getting worse and having multiple falls where he is not able to get up from the floor. The p atient denies any headache. No chest pain. No shortness of breath. No diarrhea or vomiting. No bl ood in stool. Allergies: NO KNOWN ALLERGIES. Medications: Amlodipine 5 mg daily in morning, PreserVision 1 capsule daily, famotidine 40 mg daily at bedtime, lisinopril/HCTZ 20/12.5 one tablet 2 times a day, lactulose daily, eye drops latanoprost and brimonidine, levocetirizine 5 mg daily, metoprolol succinate 25 mg daily, tamsulosin 0.4 mg daily , timolol eye drops, vitamin B12 daily, vitamin D daily, doxazosin 2 mg daily at bedtime, pravastatin 20 mg daily. Review of Systems: Constitutional: Generalized weakness. ENT: Chronic nasal and sinus congestion and clear drainage. Musculoskeletal: Right knee pain. All other systems reviewed and negative. Past Medical History: Significant for COVID-19 infection in the past; allergic rhinitis; hypertensio n; hyperlipidemia; gastroesophageal reflux disease; kidney cancer, recent diagnosis of liver cancer, which was diagnosed at [facility] and he has appointment next week to discuss treatment plan; thyroi d nodule; impaired fasting glucose; diverticulosis; benign prostatic hypertrophy; vitamin B12 deficie ncy; leg edema. Past Surgical History: Cataract surgery, sinus surgery, tonsillectomy, thyroid biopsy for benign thy roid nodule, total nephrectomy for kidney cancer on July 11, 2014, TURP on August 21, 2014, and arthroscopic knee surgery. Family History: Mother had cervical cancer. Social History: Negative for smoking. Use of alcohol occasional. Physical Examination: Vital Signs: Height 6 feet 2 inches, weight 200 pounds. Temperature 98.6, pulse 67, respiratory rat e 16, blood pressure 169/73, oxygen saturation 94% on room air. General: Awake, alert, oriented, not in distress. HEENT: Head atraumatic, normocephalic. Conjunctivae nonerythematous. Sclerae white. Mouth, no thr ush or edema noted. Ears/Nose, no mass, lesion, discharge noted. Neck: Supple. No JVD, lymph nodes, bruit, thyromegaly noted. Lungs: Bilateral good equal air entry. Clear to auscultation. No rhonchi. No rales. Heart: Normal heart sounds, no murmur or gallop. Abdomen: Soft, bowel sounds normal. No guarding, rigidity, tenderness, mass, hepatosplenomegaly, dis tention, or bruit noted. Extremities: No leg edema. No calf tenderness. Skin: No rash, ulcer, cellulitis. Lymphatics: No lymph node enlargement in neck, supraclavicular, infraclavicular region. Neuro: No focal neurological deficit. Chest: Unremarkable. External Genitalia: Deferred. Rectal: Deferred. Laboratory Data: WBC 7.5, hemoglobin 12.3, platelets 160. Chemistry: Sodium was 139, potassium 3.8 , chloride 111, bicarb 25, BUN 17, creatinine 1.39, glucose 111. Liver function tests: Total biliru bin 1.5, otherwise AST and ALT normal, alkaline phosphatase normal. His first troponin 14.7, second troponin 20.6, third troponin 32.5. ProBNP was 1285. CRP 58.30. Lipase 18. TSH 1.650. Urinalysis : 21 to 50 RBC, otherwise negative. Serum Tylenol level less than 2.5, alcohol level less than 10, and salicylate level less than . Chest x-ray: No acute intrathoracic changes. CAT scan o f the head without contrast was negative for any acute intracranial changes. CAT scan of chest, abdo men, and pelvis without contrast showed coronary artery calcification, diverticulosis, otherwise no a cute findings noted. Presence of liver mass noted. Impression: 1.Weakness, generalized. 2.Debility. 3.Liver cancer. 4.Osteoarthritis, multiple sites. 5.Chronic kidney disease stage 3a. 6.Hypertension. 7.Hyperlipidemia. 8.Impaired fasting glucose. 9.Gastroesophageal reflux disease. 10.Benign prostatic hypertrophy. Plan: We will go ahead and admit the patient to hospital for further evaluation and management of th is problem. The patient is appropriate for inpatient and is expected to spend 2 midnights in [facility]. He has a remote history of right kidney cancer, which was almost 9 years ago and recent diagnosis of liver cancer for which he has not started any treatment yet. He is now having worsening generali zed weakness with multiple falls and I have requested Physical Therapy consultation. I have also ord ered MRI of brain and spine, which is cervical, thoracic, and lumbar spine to look for any metastatic disease. We will get vitamin B12 and vitamin D level done and I have communicated details with him and his as well. Continue current IV fluid. For his hypertension, we will continue antihyperte nsive medication per order and monitor blood pressure if necessary, adjust blood pressure medication. For hyperlipidemia, no need for further intervention. For his gastroesophageal reflux disease, we will continue his medications per order and no need for further intervention. Ammonia level was orde red, which came back normal. I had ordered lactulose to be given daily and we will see him tomorrow for followup, and depending on his condition, we will decide about possible discharge tomorrow. We w ill request social service to make arrangements for home health care and home physical therapy. I di d discuss details with the patient's and recommended for a caregiver services to be in place and is going to contact a local agency to help make arrangements for provider service. The patient has 1 son who lives in [place] and the patient's tells me that it is not feasible for them to m ove to [place] and it is not feasible for son to move down to [place]. Total time spent 90 minutes that includes communication with ER physician, review of emergency room v isit record, review of last office visit record from 02/12/2024, performing today's evaluation and isabella arriaga. I will see him tomorrow for followup. YASMANY/MODL Voice ID: [id number]
[2024-04-29] MEDS: D5 0.45 NS 1,000 ML IV SCH (07:24)
[2024-04-29] MEDS: CEFTRIAXONE 1,000 MG in NA CHLORIDE 0.9% 50 ML IVPB SCH (08:43)
--- NOTE | 2024-04-29 09:10 | RAD REPORT ---
Procedure: Chest Single View HISTORY: Hypoxia COMPARISON: April 27, 2024 FINDINGS: The left base is hazy. This is a new finding when compared to the prior exam. Right lung appears clear of acute infiltrate. No significant pleural effusion noted. The heart is moderately enlarged. IMPRESSION: The left base is hazy which could be secondary to an infiltrate or epicardial fat. PA and lateral chest series is recommended.
--- NOTE | 2024-04-29 12:22 | EKG ---
Test Date: 2024-04-27 Test Time: 21:59:33 [employer] Specialist: AF MEASUREMENT RESULTS: Intervals: Rate: 70 AL: 196 QRSD: 108 QT: 370 QTc: 399 [place]: P: 69 AL: 196 QRS: -55 T: 75 INTERPRETIVE STATEMENTS: Sinus rhythm with premature atrial complexes Left anterior fascicular block Anterior infarct, age undetermined Abnormal ECG No previous ECG available for comparison Electronically Signed On 04-29-24 12:17:46 HEALTH AND SAFETY TECH by Jani Aponte
[2024-04-29] MEDS ORDERED: MORPHINE 2 MG/ML SYR IM ONE (16:45)
[2024-04-29] MEDS: BENZONATATE 100 MG CAP PO ONE (16:49)
[2024-04-29] MEDS: MORPHINE 2 MG/ML SYR IV ONE (16:49)
--- NOTE | 2024-04-29 20:14 | RAD REPORT ---
EXAMINATION: MRI BRAIN WITHOUT CONTRAST CLINICAL INDICATION: liver cancer, weakness, recurrent falls TECHNIQUE: Multiplanar multisequence MR images of the brain were obtained without intravenous contras t. Unless otherwise specified, incidental findings do not require dedicated imaging follow-up. COMPARISON: No prior exam. FINDINGS: INTRACRANIAL: Diffusion-weighted images show no acute or early subacute infarction. There is mild bra in atrophy with mildT2/FLAIR hyperintensities in the periventricular and deep white matter regions, likely representing chronic microvascular ischemic changes. There is no mass effect or midline shift. No abnormal extraaxial fluid collection. VASCULATURE: Normal signal voids in the larger intracranial arteries and dural venous sinuses. SINUSES: The paranasal sinuses and mastoid air cells are predominantly clear. BONE: The marrow signal pattern is within normal limits. IMPRESSION: Negative for acutre CVA or other acute intracranial finding.
--- NOTE | 2024-04-29 20:33 | RAD REPORT ---
EXAMINATION: MRI CERVICAL SPINE WITHOUT CONTRAST CLINICAL INDICATION: Male, 88 years old. liver cancer, weakness, recurrent falls TECHNIQUE: Multiplanar multisequence MR images were obtained of the cervical spine without intravenou s contrast. Unless otherwise specified, incidental findings do not require dedicated imaging follow-up. COMPARISON: No prior exam. FINDINGS: ALIGNMENT: The cervical spine has normal alignment. BONE: Vertebral bodies are normal in height. There is a normal marrow signal pattern. Bony fusion not ed extending C5-7. CORD: The cervical spinal cord is normal in size, contour and signal intensity. BRAIN: The included intracranial structures are grossly normal. The craniocervical junction is normal . SOFT TISSUE: The paraspinal soft tissues are normal. EVALUATION OF THE INDIVIDUAL LEVELS: C2-3: Unremarkable. C3-4: Small central disc bulge is present measuring 3 mm. C4-5: Small posterior osteophyte/disc complex. C5-6: Osteophytic ridge with left-sided uncovertebral spurring moderately narrowing the left exit for amen. C6-7: Posterior osteophytic ridge is noted with left-sided uncovertebral spurring mildly narrowing th e left exit foramen. C7-T1: Unremarkable. IMPRESSION: Mild cervical spondylosis. No severe stenosis seen at any level.
--- NOTE | 2024-04-29 20:46 | RAD REPORT ---
EXAMINATION: MRI LUMBAR SPINE WITHOUT CONTRAST CLINICAL INDICATION: liver cancer, weakness, recurrent falls TECHNIQUE: Multiplanar multisequence MR images were obtained of the lumbar spine WITHOUT intravenou s contrast. Unless otherwise specified, incidental findings do not require dedicated imaging follow-up. COMPARISON: No prior exam. FINDINGS: For purposes of this dictation, it is assumed that there are 5 non rib-bearing lumbar type vertebrae, and the most caudal fully segmented lumbar vertebra is labeled L5. ALIGNMENT: The lumbar spine has normal alignment. BONE: Vertebral bodies are normal in height. There is a normal marrow signal pattern. CORD: No abnormal signal in the cord. The conus medullaris terminates at a normal level. The nerve ro ots of the cauda equina appear normal. SOFT TISSUE: The included paraspinal soft tissues and retroperitoneal structures are grossly normal. EVALUATION OF THE INDIVIDUAL LEVELS: L1-2: Mild posterior disc bulge. L2-3: Moderate posterior disc bulge is seen with moderate facet and ligamentum hypertrophy the findin gs result in moderate central canal narrowing and right lateral recess stenosis L3-4: Moderate posterior disc bulge with moderate to significant facet and ligament hypertrophy. This results in moderate to severe central canal narrowing measuring 6 mm. Both lateral recesses are narrowed. L4-5: Moderate posterior disc bulge is seen with prominent bilateral facet and ligament flavum hypert rophy, greater on the left. The findings result in moderate central canal stenosis. L5-S1: Moderate left-sided facet hypertrophy is present narrowing the left exit foramen mildly. IMPRESSION: Multilevel degenerative spondylosis as detailed, most severe at L3-4 where there is severe central ca nal narrowing suspected.
--- NOTE | 2024-04-29 21:16 | RAD REPORT ---
EXAMINATION: MR THORACIC SPINE WITHOUT CONTRAST CLINICAL INDICATION: liver cancer, weakness, recurrent falls TECHNIQUE: Multiplanar multisequence MR images were obtained of the thoracic spine without intravenou s contrast. Unless otherwise specified, incidental findings do not require dedicated imaging follow-up. COMPARISON: No prior exam. FINDINGS: ALIGNMENT: The thoracic spine has normal alignment. BONE: Vertebral bodies are normal in height. There is a normal marrow signal pattern. CORD: No abnormal signal in the cord. DISC SPACES: Diffuse disc thinning is present in the mid and lower thoracic spine. SOFT TISSUE: The included paraspinal soft tissues are grossly normal. IMPRESSION: No significant thoracic spine abnormalities.
[2024-04-29] MEDS: LORazepam 2 MG/ML VIAL IV STA ×2 (21:51→23:01)
--- NOTE | 2024-04-29 23:28 | PN ---
Date of Progress Note: 04/29/2024 Subjective: The patient was seen this morning for followup. When I saw him, he was sleeping and aft er trying to wake him up for few seconds, he woke up, opened his eyes for few seconds, did not answer to any of my questions and closed his eyes and went back to sleep. He was not in any respiratory di stress. I did communicate with the night nurse who took care of him last night and he informed me th at the patient had uneventful night except he had to go to bathroom few times and he did go to the [facility] using walker with a standby assist, but otherwise the patient did not get any medication at [facility] that would account for any kind of excessive sleepiness or altered mental status this morning . Physical Examination: Vital Signs: His last vital signs this morning as noted, his temperature was 99.2 degrees Fahrenheit with low-grade fever and oxygen saturation was 89% on room air, so he was placed on 2 L/minute nasal cannula oxygen. HEENT: Unremarkable. Lungs: Clear to auscultation. Heart: Sounds normal. Abdomen: Soft. Bowel sounds normal. No guarding, rigidity, tenderness, distention. Extremities: No leg edema. Laboratory Data: Sodium 137, potassium 3.3, chloride 107, bicarb 26, BUN 21, creatinine 1.19, glucos e 110. Chest x-ray shows infiltrate in left lung base. Impression: 1.Pneumonia. 2.Generalized weakness. 3.Debility. 4.Liver cancer. 5.Hypertension. Plan: We will go ahead and continue current antihypertensive medication. We will start the patient on ceftriaxone 1 g IV every 12 hours. Physical Therapy to continue to work with the patient and we w ill continue IV fluid, but reduce rate per order. MRI of the brain, cervical, thoracic, and lumbar s pine was ordered to be done today and the patient was having lot of coughing and pain, so after those medications were given late this evening, the patient was able to have MRI done, result pending, and we will follow up on it. Today, the patient did ambulate with physical therapy and Social Service c ommunicated with me and we did talk about possibility of disposition. We would have liked for him to go to inpatient rehab and that is what the patient and family were wishing for, but unfortunately as we see he will not be able to qualify for inpatient rehab, so our next best option is for him to go to fci facility of his and family's choice and if insurance denies that, then options of either going home with home health and home physical therapy and full-time care provider service or g oing to senior care as out of pocket expense, all those possibilities and options we have, and I did call the patient's son this evening, Isiah Hurst, and communicated with him about all those detai ls and spent 30 minutes discussing with him regarding the patient's current status, test results, as well as plan of treatment and disposition. He informed me that in last 2 to 3 months, the patient's eyesight has changed. He has trouble with depth perception and that could be contributing to some of his falls and injuries. He has been under care of Dr. Vera who is an screen examiner in [place] and had appointment this week on Sunday, but he missed it because he was in our hospital, but soon a s he gets out of the hospital, son will take him back for followup. He has appointment to go back to [facility] on May 08 with oncologist to discuss treatment plan for his liver cancer which was recently diagnosed. The patient's son has seen that the patient's interaction with people and involv ement while he is communicating with people is becoming a problem lately. Gave me example that antonio walker he got 2 weeks ago and the patient did not even stand up to give a speech. I have explai lara it to the patient's son that I have seen some obvious decline in his cognitive function while he is in the hospital and I have known him for last 20+ years and this is first time I am seeing him lik e this, which the patient's son also has seen in last 2 months and he agrees with that, so we have so me concern about some encephalopathy type of process going on, whether this is a general cognitive de hunter or some other reason of encephalopathy, but definitely family has seen some changes and I have seen this changes. I will have neurologist Dr. Hall, evaluate him to see if he can assist us wit h some more answers and management and meanwhile we will have Physical Therapy continue to work with him. I will see him tomorrow for followup and the patient's is not in good health, so going sommer e is not a good option because son lives in [place] and I also communicated with the patient's son th at as time goes on, the patient's condition is going to continue to decline and yesterday when I had discussion with the patient's , she informed me that they cannot move to [place] and the patient' s son cannot move down to the local area, so this is going to be a challenge in the future and I did have this discussion with the patient's son also. I think as far as discharge planning is concerned, the best option for the patient would be to go to [facility] as the patient and family has decided as a facility of their choice for fci care for short-term stay until he gets strong enoug h to come back home and if insurance denies this, then they are willing to pay [id number] and son also informed me that they have long-term insurance in place that they might look into. YASMANY/MODL Voice ID: [id number] Report ID: [id number]
[2024-04-30] MEDS: LORazepam 2 MG/ML VIAL ONE (01:20)
[2024-04-30 05:11] LABS: Absolute Lymphocytes (CBC) 0.4 K/uL (0.7-4.9); Absolute Monocytes 0.6 K/uL (0.1-1.3); Absolute Neutrophil 6.4 K/uL (1.8-8.0); Basophils % 0.2 % (0-1.3); Eosinophils % 0.1 % (0-4.4); Hematocrit 35.4 % (39.6-49.0); Hemoglobin 12.2 g/dL (13.6-17.9); Lymphocytes % 5.2 % (15.3-44.8); MCH 30.8 pg (27.0-35.0); MCHC 34.6 g/dL (32.0-36.0); MCV 89.1 fL (80-100); MPV 8.1 fL (7.6-11.3); Monocytes % 7.9 % (3.3-12.3); Platelets 152 thou/uL (152-406); RBC Red Blood Cell Count 3.97 M/uL (4.33-5.43); Red Cell Distribution Width 13.3 % (12.1-15.2)
[2024-04-30 05:17] LABS: Neutrophils % 86.6 % (41.7-73.7)
[2024-04-30 05:30] LABS: Anion Gap 8.2 mEq/L (5.0-15.0); Potassium 3.2 mEq/L (3.5-5.1)
[2024-04-30] MEDS ORDERED: WATER FOR INJ,STERILE 10 ML IM PRN (06:09)
[2024-04-30] MEDS: ZIPRASIDONE MESYLA 20 MG/VIAL IM ONE (06:09)
[2024-04-30] MEDS: FUROSEMIDE 20 MG/ 2ML VIAL IV STA (06:17)
[2024-04-30] MEDS: FUROSEMIDE 20 MG/ 2ML VIAL ONE (06:17)
[2024-04-30] MEDS: ALBUTEROL 2.5 MG/3 ML NEB SOL NEB ONE (06:17)
[2024-04-30] MEDS: METOPROLOL TARTRATE 5 MG/5 ML INJ IV STA (06:17)
[2024-04-30] MEDS: METOPROLOL TARTRATE 5 MG/5 ML INJ IV ONE (06:18)
[2024-04-30 07:01] VITALS: O2SAT 96
--- NOTE | 2024-04-30 07:14 | RAD REPORT ---
EXAMINATION: ONE VIEW CHEST XR CLINICAL INDICATION: Male, 88 years old.congested TECHNIQUE: 1 View, AP supine, X-ray of the chest was performed. [id number]. COMPARISON: 04/29/2024 FINDINGS: Lungs and pleura: Bilateral interstitial and airspace disease. More focal opacities are present in th e lung bases. No effusion. Heart and mediastinum: Similar size and configuration Unremarkable mediastinal contours. Osseous structures: No acute abnormality. Tubes/lines: None Other: None. IMPRESSION: Basilar airspace disease could represent pneumonia or pneumonitis. Aeration at the right lung base michelle s worsened from 04/29/2024. There may also be mild coexisting pulmonary edema.
[2024-04-30] MEDS: POTASSIUM CL SA 10 MEQ TAB PO ONE (08:00)
[2024-04-30] MEDS: AMLODIPINE 5 MG TAB PO SCH (09:00)
[2024-04-30] MEDS: hydroCHLOROthiazide 25 MG TAB PO SCH (09:00)
[2024-04-30] MEDS ORDERED: ENOXAPARIN 40 MG/0.4 ML SQ SCH (09:00)
[2024-04-30] MEDS: ENOXAPARIN 40 MG/0.4 ML SQ SCH (09:50)
[2024-04-30] MEDS: AZITHROMYCIN IV 500 MG in NA CHLORIDE 0.9% 250 ML IVPB ONE (09:50)
[2024-04-30] MEDS ORDERED: NA CHLORIDE 0.9% 1,000 ML ONE (11:09)
[2024-04-30] MEDS ORDERED: NOREPINEPHRINE 4 MG in D5W 250 ML IV SCH (11:15)
[2024-04-30] MEDS: NOREPINEPHRINE 4 MG in D5W 250 ML IV SCH (11:25)
[2024-04-30] MEDS ORDERED: NOREPINEPHRINE BITARTRATE/D5W 4 MG/250 ML KIT IV ONE (11:27)
[2024-04-30] MEDS ORDERED: NA CHLORIDE 0.9% 1,000 ML IV ONE (11:34)
--- NOTE | 2024-04-30 11:49 | P.CNS ---
Date of Consult: 04/30/24 Reason for Consult: Respiratory failure Chief Complaint: Respiratory failure History of Present Illness: Patient is 88 years of age I saw him in the ICU he was just recently intubated in the emergency room with generalized weakness recurrent falls to the hospital came more delirious and was given some medication he developed respiratory distress and was emergently intubated currently patient has mild cervical spondylosis also has a liver mass that were recently biopsied and [facility] Allergies No Known Allergies Allergy (Verified 03/26/14 14:06) Home Medications: Amlodipine [Norvasc*] 5 mg PO DAILY 03/26/14 Levothyroxine [Synthroid*] 100 mcg PO SEECOM 03/26/14 Pravastatin [Pravachol*] 20 mg PO BEDTIME 03/26/14 Doxazosin Mesylate 2 mg PO BEDTIME 04/28/24 Famotidine 40 mg PO BEDTIME 04/28/24 Latanoprost Ophth [Xalatan 0.005%*] 1 gtt EACH EYE BEDTIME 04/28/24 Levocetirizine Dihydrochloride [Xyzal] 5 mg PO BEDTIME 04/28/24 Metoprolol Succinate 25 mg PO DAILY 04/28/24 Omeprazole 20 mg PO DAILY 04/28/24 Tamsulosin [Flomax*] 0.4 mg PO DAILY 04/28/24 Timolol 0.5% Opth [Timoptic 0.5% Opth*] 1 gtt EACH EYE BID 04/28/24 - Past Medical/Surgical History Diabetic: No -: htn -: acid reflux -: hypothyroidism -: HLD -: right inguinal hernia -: right knee surgery -: kidney stone removed -: appy -: R nephrectomy - Social History Alcohol use: Yes CD- Drugs: No Caffeine use: Yes Place of Residence: Home Review of Systems is unable to be obtained Physical Examination Temp Pulse Resp BP Pulse Ox 98.3 F 94 H 24 H 190/84 H 99 04/30/24 04:00 04/30/24 06:32 04/30/24 04:00 04/30/24 06:32 04/30/24 06:32 General: Unresponsive Neck: Supple Respiratory: Clear to auscultation bilaterally Cardiovascular: No edema, Normal S1 S2 Gastrointestinal: Normal bowel sounds, Soft and benign, Non-distended Musculoskeletal: No clubbing, No swelling Integumentary: No rashes, No breakdown - Problems (1) Respiratory failure Current Visit: Yes Status: Acute Plan: Patient is 88 years of age admitted with falls weakness developed respiratory distress was intubated his chest x-ray is clear endotracheal tube is in satisfactory position patient was hypotensive on admissions currently is hypotensive be given some IV fluids start on Levophed and Precedex drip new with present treatment his chest x-ray is clear mild cervical spondylosis labs reviewed patient's white count is normal on admission patient blood pressure was elevated with normal sats Qualifiers: Chronicity: acute
--- NOTE | 2024-04-30 12:18 | P.PN ---
Date of Service: 04/30/24 Mr. Hurst is an 88 yo male with an acute C3-C4 fx who was being transferred out via stretcher when a rapid response was called. He was transferred to ICU with respiratory using BVM to assist respirations. ED provider intubated pt and I was called to insert central for levophed initiation. Left femoral triple lumen line placed per sterile technique post 1 attempt, placement confirmed with blood return. Ports flushed with NS x 10ml and line secured. Pt tolerated well. Levophed initiated per peripheral switched to central line.
[2024-04-30] MEDS ORDERED: LORazepam 2 MG/ML VIAL IV PRN (12:19)
[2024-04-30] MEDS ORDERED: HALOPERIDOL LACT 5 MG/ML INJ IV PRN (12:19)
[2024-04-30] MEDS: DEXMEDETOMIDINE HCL 1,000 MCG in NA CHLORIDE 0.9% 490 ML IV SCH (12:21)
[2024-04-30] MEDS: propofoL 1,000 MG/100 ML VIAL IV SCH (12:21)
--- NOTE | 2024-04-30 12:25 | RAD REPORT ---
EXAMINATION: ONE VIEW CHEST XR CLINICAL INDICATION: Male, 88 years old.ETT placement TECHNIQUE: 1 View, AP supine, X-ray of the chest was performed. [id number]. COMPARISON: 04/30/2024 FINDINGS: Lungs and pleura: Airspace disease present at the left lung base. No effusion. Heart and mediastinum: Normal heart size. Unremarkable mediastinal contours. Osseous structures: No acute abnormality. Tubes/lines: Endotracheal tube at the aortic arch. Other: None. IMPRESSION: Endotracheal tube in satisfactory position. Left basilar airspace disease which is increased from [place] or and could reflect some component of aspiration.
[2024-04-30] MEDS ORDERED: ETOMIDATE 20 MG/10 ML VIAL IV ONE (12:36)
[2024-04-30] MEDS ORDERED: SUCCINYLCHOLINE 20 MG/ML (10 ML) IV ONE (12:36)
[2024-04-30] MEDS: FENTANYL CITR 100 MCG/2 ML IV PRN (14:24)
[2024-04-30 14:27] LABS: Blood Gas Oxyhemoglobin 97.6 % (94-97)
[2024-04-30 14:28] LABS: Arterial Blood Carboxyhemoglob 0.9 % (0-1.5); Blood Gas THB 13.1 g/dl (12-18)
[2024-04-30 15:46] VITALS: TEMP 96.4
[2024-04-30 15:48] VITALS: BP 120/42
[2024-04-30] MEDS ORDERED: QUETIAPINE 25 MG TAB PO SCH (21:00)
--- NOTE | 2024-05-01 07:46 | DS ---
Date of Discharge: 04/30/2024 Disposition: The patient was transferred via ground ambulance to [facility] in [place] for higher level of care. Physical Examination: General: When I saw the patient this morning, he was very restless, trying to constantly get out of the bed. He was completely disoriented, not in any respiratory distress, and he was on nasal cannula oxygen 5 L/minute, which was started sometime early this morning before my arrival to hospital. HEENT: Unremarkable. Neck: The patient has hard cervical collar in place which was ordered last night after MRI result. Lungs: Bilateral scattered wheezing in all the lung sims and the patient is tachypneic. Some rale s noted in lower lung sims. Heart: Sounds normal. Abdomen: Soft. Bowel sounds normal. No guarding, rigidity, tenderness, distention. Extremities: No leg edema. Neuro: The patient is totally disoriented, but constantly moving all the 4 extremities and trying to get up and get out of bed. Laboratory Data: Lab results done during this hospitalization; chest x-ray from today shows right lo wer lung infiltrate which is new compared to yesterday. Left basal infiltrate remains unchanged from yesterday. There is a possibility of some co-existing pulmonary edema on today's chest x-ray. CBC upon admission on 04/27/2024, WBC 7.5, hemoglobin 12.3, platelets 160. Today, WBC 7.3, hemoglobin 12 .2, platelets 152. For chemistry upon admission, sodium 139, potassium 3.8, chloride 111, bicarb 25, BUN 17, creatinine 1.39, glucose 111, total bilirubin 1.5, AST 17, ALT 17, ammonia level less than 1 5 upon admission. Troponin first set 14.7, second set 20.6, third set 32.5. His proBNP 1285. Vitam in B12 level 1230. TSH was 1.65. Last chemistry today, sodium 140, potassium 3.2, chloride 107, bic arb 28, BUN 21, creatinine 1.06, glucose 122. Urinalysis, 21 to 50 rbc, otherwise negative. Salicyl ate level less than 2.2. Alcohol level less than 10. Tylenol level less than 2.5 and this was done upon admission. Hospital Course: This is an 88-year-old pleasant male patient, who came into emergency room with gen eralized weakness and recurrent falls. Please see dictated H and P for more details. The patient li ves at home with his who unfortunately is not in good health because of worsening problem with P arkinson's disease and as I understand by talking to the patient's as well as the patient's son that the patient has had multiple falls in last 2 to 3 months and with one of this fall, he was not a ble to get up because of his significant generalized weakness, so he was brought into emergency room and after he was evaluated, he was admitted to the hospital. In emergency room, he had CAT scan of t he head, chest, abdomen, and pelvis and this was negative for any acute traumatic findings. He was r ecently diagnosed as having liver cancer and had a biopsy done at [facility] and he has appointment in about 1 week or so to go back to [facility] for followup visit and to have a discussion regarding treatment for his liver cancer. After he was admitted to our hospital, we consulted Physical Therap y and I had a long discussion with the patient's regarding ongoing outpatient care since they fatmata th live alone and with aging process and with certain disease, their health is declining. I also had a long discussion with the patient's son yesterday to discuss all the details regarding his current hospital test results, overall his condition and his care. Ever since I have seen him during this spitalization, he does not come across as his normal self as I have known him for last 20 to 25 years . His mental status did not appear to be normal in terms of cognition and the patient's son also inf ormed me that he has noticed the same thing in last few months also. I strongly suspect that he has underlying dementia problem that definitely needs to be evaluated on an elective outpatient basis. Y esterday, we had MRI done on brain, cervical, thoracic, and lumbar spine and this was done very late in the evening and MRI of the brain was negative for any acute changes. MRI of thoracic spine was un remarkable. MRI of lumbar spine showed changes of lumbar spondylosis and spinal stenosis and MRI of cervical spine showed compression fracture of C5-6 and there was no evidence of any spinal stenosis o r impingement on the spinal cord. Radiologist, Dr. Moseley, called me last night around 10 p.m. or so t o inform this result and soon after that, hard cervical collar was ordered to be placed. We initiate d transfer process early this morning for the patient to be transferred to [facility] in [facility] [place] for higher level of care for this fracture of the cervical spine and I commun icated with transfer center and initially communicated with neurologist who cleared the patient and a ccepted the patient and subsequently talked to hospitalist who was on duty during nighttime and later on hospitalist who was on duty during day time. So, multiple calls were made to communicate with ysicians on other end to provide all the details. The patient's son was notified last night after MR aRdha result became available about the findings as well as treatment plan to transfer him to [place] and son was contacted multiple times today to give him update regarding the hospital course and the even ts that happened today. When I walked into the hospital this morning, I found out the patient was ex tremely restless last night. Because of his restlessness and agitation, Ativan 0.5 mg x2 doses were ordered, which was given about 4 hours apart and when I walked into the hospital this morning around 6 a.m., the patient was very restless, agitated, trying to get out of the bed and he was having obvio us wheezing. He was on oxygen 5 L/minute, which nurse informed me about hour ago or so, his room air oxygen saturation was 90%, so he was started on 5 L nasal cannula oxygen. The patient had wheezing in both lungs with some rales in the bottom part of his both lungs. His blood pressure was extremely high anywhere from 180 to 200 systolic blood pressure. Pulse rate was around 100. The patient rece ived IV hydralazine and also ordered 5 mg of IV Lopressor. Nebulizer treatment with albuterol was or dered and Lasix 20 mg IV was ordered. Repeat chest x-ray was done this morning and results reviewed showing left lung base pneumonia unchanged and new larger infiltrate in the right lower lobe with pos sibility of pulmonary edema. Azithromycin was added to ceftriaxone for pneumonia which was started y . Subsequently, his blood pressure responded well to those medication, came down, and I comm unicated with transfer center and talked to hospitalist again and the patient was accepted at that ti me for transfer via ground ambulance and later on when ambulance came to take him just around that ti me, his condition deteriorated. He became diaphoretic and oxygen saturation dropped down to 70% and at that time, rapid response was called. He was moved to ICU. I did communicate with [facility]on[facility] physician, who responded to the code and explained him regarding MRI of the cervical spin e showing fracture of the C5-[address] Rivera from [facility] and re quested his assistance for management and consultation on this patient. Subsequently, the patient wa s intubated in ICU. After intubation, his blood pressure started to drop and at that time, IV fluid bolus was ordered and we had to start him on vasopressor medication. The blood pressure was around _ . With IV fluid resuscitation and vasopressor medication, his blood pressure responded very well. Subsequently, the patient had a brief episode of paroxysmal atrial fibrillation. Without any intervention, converted back to sinus rhythm. Later on, transfer center contacted ICU and all these details were explained to ICU nurse by our ICU nursing staff and the patient was accepted for transf er and was transferred via ground ambulance. The patient's son and , they were present at [facility]. Final Diagnoses: 1.Acute respiratory failure with hypoxia. 2.Pneumonia. 3.Fracture, cervical spine, C5-C6. 4.Senile dementia. 5.Liver cancer. 6.Hypertension. 7.Hyperlipidemia. 8.Impaired fasting glucose. 9.Gastroesophageal reflux disease. 10.Benign prostatic hypertrophy. 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 13.Lumbar spinal stenosis. Total time spent today minutes. YASMANY/MODL Voice ID: [id number] Report ID: [id number]
[2024-05-01] MEDS ORDERED: AZITHROMYCIN IV 250 MG in NA CHLORIDE 0.9% 250 ML IVPB SCH (09:00)
== END 2024-04-30 14:20 | disposition short-term general hospital (02) | DRG 208 ==
LOC: ER 20:43 → ERHOLD 04-28 01:18 → 2ND 04-28 01:57 → 3RD-ICU 04-30 11:09
PROVIDERS: ADMIT Internal Medicine; ATTEND Internal Medicine
PROC: 5A1935Z Respiratory Ventilation, Less than 24 Consecutive Hours (ICD-10-PCS; principal; 2024-04-30)
PROC: 3E033XZ Introduction of Vasopressor into Peripheral Vein, Percutaneous Approach (ICD-10-PCS; 2024-04-30)
PROC: 4A033R1 Measurement of Arterial Saturation, Peripheral, Percutaneous Approach (ICD-10-PCS; 2024-04-30)
PROC: 0BH17EZ Insertion of Endotracheal Airway into Trachea, Via Natural or Artificial Opening (ICD-10-PCS; 2024-04-30)
PROC: 0T9B70Z Drainage of Bladder with Drainage Device, Via Natural or Artificial Opening (ICD-10-PCS; 2024-04-30)
DX: J18.9 Pneumonia, unspecified organism (principal); A41.9 Sepsis, unspecified organism; R65.21 Severe sepsis with septic shock; J96.01 Acute respiratory failure with hypoxia; S12.400A Unspecified displaced fracture of fifth cervical vertebra, initial encounter for closed fracture; S12.500A Unspecified displaced fracture of sixth cervical vertebra, initial encounter for closed fracture; C78.7 Secondary malignant neoplasm of liver and intrahepatic bile duct; F03.911 Unspecified dementia, unspecified severity, with agitation; J81.1 Chronic pulmonary edema; K21.9 Gastro-esophageal reflux disease without esophagitis; I12.9 Hypertensive chronic kidney disease with stage 1 through stage 4 chronic kidney disease, or unspecified chronic kidney disease; N18.31 Chronic kidney disease, stage 3a; E78.00 Pure hypercholesterolemia, unspecified; M19.09 Primary osteoarthritis, other specified site; M47.896 Other spondylosis, lumbar region; M47.892 Other spondylosis, cervical region; M48.061 Spinal stenosis, lumbar region without neurogenic claudication; I48.0 Paroxysmal atrial fibrillation; N40.0 Benign prostatic hyperplasia without lower urinary tract symptoms; R16.0 Hepatomegaly, not elsewhere classified; R29.6 Repeated falls; R73.01 Impaired fasting glucose; Z90.5 Acquired absence of kidney; Z91.81 History of falling; Z90.49 Acquired absence of other specified parts of digestive tract; Z79.899 Other long term (current) drug therapy; Z85.528 Personal history of other malignant neoplasm of kidney; W18.30XA Fall on same level, unspecified, initial encounter; Y92.002 Bathroom of unspecified non-institutional (private) residence as the place of occurrence of the external cause; Y93.9 Activity, unspecified; Y99.9 Unspecified external cause status
CPT/HCPCS: 36415; 36600; 70450; 70551; 71045; 71260; 72141; 72146; 72148; 74177; 80048; 80076; 80143; 80179; 81001; 82077; 82140; 82306; 82607; 82805; 82947; 83690; 83735; 83880; 84439; 84443; 84484; 85025; 85610; 86140; 93005; 94002; 94640; 96365; 96366; 97116; 97161; 97530; 99285; J0360; J0696; J1650; J1940; J2270; J2704; J3010; J3411; J3486; J7030; J7040; J7050; J7613; J7799; Q9967

== ENCOUNTER 2025-02-04 07:04 | Emergency (ER) | payer OTHER ==
--- OUTSIDE RECORDS SUMMARY | 2025-02-04 07:10 | XMS REPORT | Clinical Summary ---
Author Name Unknown Organization [facility] Address [address] [place] [address] Care Team Providers Care Manager In Home Name Role Phone Apolinar Bird MD Unavailable [phone] Ira Lancaster RN Unavailable [phone] Kalpana Mancera MD Primary Care Provider [phone] Raymundo Langley MD Unavailable Raymundo Langley MD Primary Care Provider [phone] Ajay Martins MD Unavailable Aline Baez PA-C Unavailable Allergies No known active allergies Medications pravastatin (PRAVACHOL) 20 mg tablet Take 1 [...] 1 drop to both eyes twice daily. 4 Active timolol (TIMOPTIC) 0.5% ophthalmic solution Administer 1 drop to both eyes daily. 4 Active latanoprost (XALATAN) 0.005% ophthalmic solution Administer 1 drop to both eyes at bedtime. 4 Active tamsulosin (FLOMAX) 0.4 mg 24 hr capsule Take 1 capsule (0.4 mg) by mouth daily. 4 Active lisinopril (PRINIVIL,ZESTR IL) 10 mg tablet Take 1 tablet (10 mg) by mouth twice daily. Active vit C/E/Zn/coppr/patsy tein/zeaxan (PRESERVISION AREDS-2 ORAL) Take 1 tablet by mouth daily. Active cholecalciferol , vitamin D3, (VITAMIN D3) 2,000 units tab tablet Take 1 tablet (2,000 Units) by mouth daily. Active guaiFENesin (MUCINEX) 600 mg 12 hr tablet Take 1 tablet (600 mg) by mouth. 4 05/13/20 25 Active loratadine (CLARITIN) 10 mg tablet TAKE 1 TABLET BY MOUTH EVERY DAY 4 Active glucosamine mcmahon 2KCl-chondroit 500-400 mg cap Take by mouth. 4 Active acetaminophen (TYLENOL) 325 mg tablet Take 2 tablets (650 mg) by mouth. 4 07/22/19 25 Active Problems Patient Care Coordination No te Formatting of this note migh t be different from the original. 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 Staging:Clinical:Stage I(T1, N0, M0) - Unsigned Liver mass 03/06/2024 Hyperlipidemia Hypertension Encounters Date Type Department Care Team Description 02/03/2025 Orders Only Colorectal Center - Medical Oncology [address] [facility] Main [facility], 7th [place] [address] Mariposa Means PA Cholangiocarcinoma of biliary tract, NOS (Primary Dx) 01/30/2025 11:23 AM CDT - 01/31/2025 10:32 AM CDT Hospital Encounter MAIN [address] [place] [address] Mariposa Means PA Habibollahi, Peiman, MD Vu, Catherine, MD Brumback, Peter R, DESIGN PRINTER [employer]ALL[employer] Liver mass (Primary Dx); Cholangiocarcinoma of biliary tract, NOS Discharge Disposition: Home 01/30/2025 8:11 AM CDT Anesthesia Event Main Interventional Radiology [address] [place] [address], 3rd [place] [address] Zulema Davis MD Brumback, Peter R, DESIGN PRINTER [employer]ALL[employer]ON 01/30/2025 6:02 AM CDT - 01/30/2025 6:44 AM CDT Hospital Encounter [facility] [address] [place] [address] Sharon Alcantara PA Cholangiocarcinoma of biliary tract, NOS Discharge Disposition: Home 01/30/2025 Travel 01/29/2025 4:30 PM CDT POEM Appointments [facility] [address] [place] [address], 6th [place] [address] Shaorn Alcantara PA Cholangiocarcinoma of biliary tract, NOS 01/28/2025 11:59 PM CDT Anesthesia Event [facility] [address] [place] [address], 6th [place] [address] Mariposa Hammond RN 01/27/2025 12:45 PM CDT - 01/27/2025 11:59 PM CDT Hospital Encounter Interventional Radiology [address] [place] [address], 4th [place] [address] Raymundo Langley MD Habibollahi, Peiman, MD Cholangiocarcinoma of biliary tract, NOS (Primary Dx); Encounter for other preprocedural examination Discharge Disposition: Home 01/26/2025 Telephone Interventional Radiology [address] [place] [address], 4th [place] [address] Payton Quezada MA 12/31/2024 Orders Only Colorectal Center - Medical Oncology [address] [facility] Main Bldg, 7th [place] [address] Mariposa Means PA Cholangiocarcinoma of biliary tract, NOS (Primary Dx) 12/31/2024 Orders Only Main Interventional Radiology [address] [facility] Bldg, 3rd [place] [address] Sharon Alcantara PA Cholangiocarcinoma of biliary tract, NOS (Primary Dx) 12/30/2024 11:00 AM CDT Telemedicine [facility] [address] [facility] Main Bldg, 7th [place] [address] Raymundo Langley MD Cholangiocarcinoma of biliary tract, NOS (Primary Dx) 12/30/2024 Orders Only [facility]orectal [facility] - Medical Oncology [address] [facility] Main Bldg, 7th [place] [address] Mariposa Means PA Cholangiocarcinoma of biliary tract, NOS (Primary Dx) 12/29/2024 11:15 AM CDT Ancillary Procedure [facility] [address] [place] [address] 2[address] [place] [address] Ryann Rodriguez PA Cholangiocarcinoma of biliary tract, NOS 11/06/2024 12:55 PM CDT - 11/06/2024 11:59 PM CDT Hospital Encounter Gastrointestinal Center - Radiation Oncology [facility] Main Bldg, 7th [place] [address] Patsy Langley, Ajay Guerrero MD Cholangiocarcinoma of biliary tract, NOS Discharge Disposition: Home 11/06/2024 Telephone Radiation Treatment Center [address] [facility] Main Bldg, 1st [place] [address] Keya Rosen Jr., RN 10/28/2024 1:00 PM CDT Follow-Up Gastrointestinal Center [facility] Main Bldg, 7th [place] [address] Raymundo Langley MD Cholangiocarcinoma of biliary tract, NOS 10/27/2024 12:45 PM CDT Ancillary Procedure [facility] [address] [facility] 2nd [place] [address] Raymundo Langley MD Cholangiocarcinoma of biliary tract, NOS 10/27/2024 Travel 08/29/2024 8:50 AM [employer] LIBR[employer]IAN - 08/29/2024 11:59 PM [employer]IAN Hospital Encounter Radiation Treatment Center [address] Main [place] [address] Raymundo Langley MD Discharge Disposition: Home 08/29/2024 7:52 AM [employer]ER LIBRARIAN - 08/29/2024 8:49 AM [employer] TE[employer]ER LIBRARIAN Hospital Encounter [facility] Treatment [facility] [address] Main Bldg, 1st [place] [address] Ajay Martins MD Discharge Disposition: Home 08/29/2024 Documentation Rad[facility] [address] Main Bldg, 1st [place] [address] Ajay Martins MD 08/29/2024 Documentation Rad[facility] [address] Main Bldg, 1st [place] [address] Ajay Martins MD 08/29/2024 Travel 08/28/2024 10:00 AM [employer]ER [employer]RARIAN - 08/28/2024 11:59 PM [employer]ER LIBRARIAN Hospital Encounter [facility] [address] [place] [place] [address] Lesly Gale APRN Cholangiocarcinoma of biliary tract, NOS Discharge Disposition: Home 08/28/2024 8:57 AM [employer] LIBRARIAN - 08/28/2024 9:59 AM [employer]ER LIBRARIAN Hospital Encounter Rad[facility] Treatment [facility] [address] Main [place] [address] Raymundo Langley MD Discharge Disposition: Home 08/28/2024 Orders Only Gastrointestinal Center - Radiation Oncology [address] Main Bldg, 7th [place] [address] Patsy Langley APRN Cholangiocarcinoma of biliary tract, NOS (Primary Dx) 08/28/2024 Documentation [facility] [address] Main Bldg, 1st [place] [address] Ajay Martins MD 08/27/2024 8:45 AM [employer]RARIAN - 08/27/2024 11:59 PM [employer]ER [employer]RARIAN Hospital Encounter [facility] Treatment [facility] [address] Main [place] [address] Raymundo Langley MD Discharge Disposition: Home 08/27/2024 Documentation [facility] [address] Main Bldg, 1st [place] [address] Ajay Martins MD 08/26/2024 8:48 AM [employer]ER [employer]RARIAN - 08/26/2024 11:59 PM [employer] TE[employer]ER LIBRARIAN Hospital Encounter Rad[facility] Treatment Center [address] Main [place] [address] Raymundo Langley MD Discharge Disposition: Home 08/26/2024 Documentation [facility] [address] Main Bldg, 1st [place] [address] Ajay Martins MD 08/25/2024 8:44 AM [employer]ER LIBRARIAN - 08/25/2024 11:59 PM [employer] TE[employer]ER LIBRARIAN Hospital Encounter [facility] [address] Main [place] [address] Raymundo Langley MD Discharge Disposition: Home 08/25/2024 Documentation [facility] [address] Main Bldg, 1st [place] [address] Ajay Martins MD 08/25/2024 Travel 08/14/2024 Documentation [facility] [address] Main Bldg, 1st [place] [address] Ajay Martins MD 08/12/2024 Orders Only Rad[facility] [address] Main Bldg, 1st [place] [address] Lesly Gale APRN Cholangiocarcinoma of biliary tract, NOS (Primary Dx) 08/11/2024 1:00 PM [employer]RARIAN - 08/11/2024 11:59 PM [employer]ER [employer]RARIAN Hospital Encounter [facility] [address] Main [place] [address] Raymundo Langley MD Discharge Disposition: Home 08/08/2024 2:24 PM [employer]ER [employer]RARIAN - 08/08/2024 11:59 PM [employer] TE[employer]ER LIBRARIAN Hospital Encounter [facility] [address] Main [place] [address] Patsy Langley APRN Das, Prajnan, MD Mathew, Sisy RN Cholangiocarcinoma of biliary tract, NOS Discharge Disposition: Home 08/08/2024 1:38 PM [employer]ER [employer]RARIAN - 08/08/2024 2:23 PM [employer]ER [employer]RARIAN Hospital Encounter Rad[facility] Treatment [facility] [address] Main Bldg, 1st [place] [address] Ajay Martins MD Discharge Disposition: Home 08/08/2024 Documentation [facility] [address] Main Bldg, 1st [place] [address] Ajay Martins MD 08/08/2024 Documentation [facility] [address] Main Bldg, 1st [place] [address] Ajay Martins MD 08/08/2024 Travel 08/07/2024 12:28 PM [employer]ER [employer]RARIAN - 08/07/2024 11:59 PM [employer] TE[employer]ER [employer]RARIAN Hospital Encounter [facility] Treatment [facility] [address] Main Bldg, 1st [place] [address] Raymundo Langley MD Das, Prajnan, MD Cholangiocarcinoma of biliary tract, NOS (Primary Dx) Discharge Disposition: Home 08/04/2024 Orders Only [facility] Center - Radiation Oncology [address] Main Bldg, 7th [place] [address] Patsy Langley APRN Cholangiocarcinoma of biliary tract, NOS (Primary Dx) 07/31/2024 2:20 PM [employer]RARIAN Telemedicine [facility] - GI Medical Oncology [address] 3rd [place] [address] Raymundo Langley MD Cholangiocarcinoma of biliary tract, NOS (Primary Dx) 07/30/2024 1:20 PM [employer]ER [employer]RARIAN Ancillary Procedure MD [facility] [address] [facility] 2nd [place] [address] Marium Nguyen PA Cholangiocarcinoma of biliary tract, NOS 07/22/2024 12:45 PM [employer]ER [employer]RARIAN - 07/22/2024 11:59 PM [employer]ER LIBRARIAN Hospital Encounter Diagnostic [facility] [address] [place] [address] Marium Nguyen PA Liver mass Discharge Disposition: Home 07/22/2024 11:00 AM [employer]ER LIBRARIAN Consult [facility] [address] [place] [address], 7th [place] [address] Raymundo Langley MD Liver mass 07/22/2024 Travel 07/15/2024 Orders Only [facility] [address] [place] [address], 7th [place] [address] Marium Nguyen PA Cholangiocarcinoma of biliary tract, NOS (Primary Dx) 07/02/2024 Orders Only [facility] - GI Medical Oncology [address] [facility] 3rd [place] [address] Marium Nguyen PA Cholangiocarcinoma of biliary tract, NOS (Primary Dx) 03/26/2024 Orders Only Internal Medicine Center [address] [place] [address], 9th [place] [address] Sergey Crouch APRN Liver mass (Primary Dx) 03/25/2024 Telephone Internal Medicine Center [address] [facility], 6th [place] [address] Kalpana Mancera MD 03/20/2024 9:23 AM CDT Anesthesia Event [facility] [address] [place] [address] Scottie Jarrell MD Faruki, Adeel Ahmad, MD 03/20/2024 7:58 AM CDT - 03/20/2024 11:59 PM CDT Hospital Encounter [facility] [address] [place] [address] Sergey Crouch APRN Lu, Thomas, MD Liver mass Discharge Disposition: Home 03/20/2024 Travel 03/19/2024 10:08 AM CDT - 03/19/2024 11:59 PM CDT Hospital Encounter [facility] [address] [place] [address] Kalpana Mancera MD Wu, Pei H, PA-C Liver mass (Primary Dx); Encounter for preprocedural laboratory examination Discharge Disposition: Home 03/19/2024 Travel 03/18/2024 10:00 AM CDT POEM Appointments [facility] [address] [place] [address], 6th [place] [address] Kalpana Mancera MD 03/18/2024 Telephone [facility] [address] [place] [address] Liz Ramos MA 03/17/2024 11:59 PM CDT Anesthesia Event [facility] [address] [place] [address], 6th [place] [address] Chacha Watts RN 03/14/2024 Orders Only Interventional Radiology [address] [facility], 4th [place] [address] Makenzie Mclain PA-C Encounter for preprocedural laboratory examination (Primary Dx) 03/12/2024 2:00 PM CDT - 03/12/2024 11:59 PM CDT Hospital Encounter [facility] [address] [place] [address], 2nd [place] [address] Sergey Crouch APRN Liver mass Discharge Disposition: Home 03/12/2024 1:15 PM CDT - 03/12/2024 1:59 PM CDT Hospital Encounter [facility] [address] [place] [address] Sergey Crouch APRN Liver mass Discharge Disposition: Home 03/12/2024 10:30 AM CDT Office Visit Internal Medicine Center [address] [place] [address], 9th [place] [address] Kalpana Mancera MD Liver mass (Primary Dx); Hypertension; Mixed hyperlipidemia 03/12/2024 9:30 AM CDT NPR MDA PATIENT ACCESS 03/12/2024 Documentation Internal Medicine Center [address] [facility] Main [facility], 9th [place] [address] Sandra Montiel RN 03/12/2024 Travel 03/07/2024 8:05 PM CDT Ancillary Procedure [facility] [address] [place] [address] Kalpana Mancera MD Cancer 03/07/2024 8:00 PM CDT Ancillary Procedure [facility] [address] [place] [address] Kalpana Mancera MD Cancer 03/04/2024 Lab Requisition [facility] Hector Pittman MD Feng, Wei, MD 02/28/2024 Telephone [facility] [address] [place] [address], 7th [place] [address] Ira Lancaster, RN 02/27/2024 Telephone [facility] [address] [place] [address], 7th Floor Elevator [place] [id number] Ira Lancaster, RN 02/21/2024 Telephone [facility] [address] [place] [address], [facility] Floor Elevator A [place] [id number] Ira Lancaster, RN 02/20/2024 Telephone [facility] [address] [place] [address], 7th [place] [address] Ira Lancaster, RN 02/20/2024 Telephone [facility] PATIENT ACCESS Kavita Mercado, RN after 02/05/2024 Immunizations Immunization Administration Dates Next Due Influenza Whole 03/25/2015,06/05/2014 [...] History Medical History Date Comments Hypertension Hyperlipidemia Gastroesophageal reflux disease Social History Tobacco Use Types Packs/Day Years Used Date Smoking Tobacco: Former Cigars 2 - 2003 Passive Smoke Exposure: Past Smokeless Tobacco: Never Tobacco Cessation:Counseling Given: No Comments:Socially cigar Alcohol Use Standard Drinks/Week Comments Not Currently 0 (1 standard drink = 0.6 oz pur e alcohol) Sex and Gender Information Value Date Recorded Sex Assigned at Male 02/20/2024 11:40 AM CDT Legal Sex Male 11:38 AM CDT Gender Identity Male 02/20/2024 11:40 AM CDT Sexual Orientation Not on file Obstetrics History Last Filed Vital Signs Vital Sign Reading Time Taken Comments Blood Pressure 172/71 01/31/2025 7:36 AM CDT Pulse 63 01/31/2025 7:36 AM CDT Temperature 36.5 °C (97.7 °F) 01/31/2025 7:36 AM CD T Respiratory Rate 20 01/31/2025 7:36 AM CDT Oxygen Saturation 97% 01/31/2025 7:36 AM CDT Inhaled Oxygen Concentration - - Weight 78.9 kg (173 lb 15.1 oz) 01/30/2025 4:07 PM CDT Height 176 cm (5' 9.29") 01/30/2025 4:07 PM CDT Body Mass Index 25.47 01/30/2025 4:07 PM CDT Plan of Treatment Upcoming Encounters Date Type Department Care Team (Late st Contact Info) Description 02/10/2025 12:30 PM CDT Appointment Interventional Radiology [address] [facility], 4th [place] [address] Raymundo Langley MD [address] [place] [address] [email or web address] Lillie Allen MD [address] [place] [address] 03/03/2025 12:45 PM CDT Appointment Interventional Radiology [address] [facility], 4th [place] [address] Raymundo Langley MD [address] [place] [address] [email or web address] Lillie Allen MD [address] [place], [place] [id number] Health Maintenance Due Date Last Done Comments COVID-19 Vaccine (#1) 1940 Pneumococcal Vaccine: 50+ Ye ars (1 of 1 - PCV) 1985 Influenza Vaccine (#1) 2025 03/25/2015, 2013 Procedures Procedure Name Priority Date/Time Associated Diagnosis Comments PATHOLOGY BIOPSY INTERPRETATION Routine 01/30/2025 10:19 AM CDT Cholangiocarcinoma of biliary tract, NOS IR CT GUIDED MICROWAVE ABLATION LIVER 180 Routine 01/30/2025 8:57 AM CDT Cholangiocarcinoma of biliary tract, NOS IR CT GUIDED BIOPSY LIVER 60 Routine 01/30/2025 8:57 AM CDT Cholangiocarcinoma of biliary tract, NOS MDA CP HEMOGRAM Routine 01/30/2025 6:21 AM CDT Cholangiocarcinoma of biliary tract, NOS HEPATIC FUNCTION PANEL Routine 6:21 AM CDT Cholangiocarcinoma of biliary tract, NOS TYPE AND SCREEN Routine 01/30/2025 6:21 AM CDT Cholangiocarcinoma of biliary tract, NOS PROTHROMBIN TIME Routine 01/30/2025 6:21 AM CDT Cholangiocarcinoma of biliary tract, NOS BASIC METABOLIC PANEL, CALCIUM TOTAL Routine 01/30/2025 6:21 AM CDT Cholangiocarcinoma of biliary tract, NOS COMPLETE BLOOD COUNT W/ INDICES Routine 01/30/2025 6:21 AM CDT Cholangiocarcinoma of biliary tract, NOS CT CHEST ABDOMEN PELVIS W WO CONTRAST LIVER Routine 12/29/2024 1:27 PM CDT Cholangiocarcinoma of biliary tract, NOS ALPHA FETOPROTEIN TUMOR MARKER Add-On 12/29/2024 10:46 AM CDT Cholangiocarcinoma of biliary tract, NOS CARCINOEMBRYONIC ANTIGEN Add-On 12/29/2024 10:46 AM CDT Cholangiocarcinoma of biliary tract, NOS .CBC Routine 12/29/2024 10:46 AM CDT Cholangiocarcinoma of biliary tract, NOS CARBOHYDRATE ANTIGEN 19-9 Routine 12/29/2024 10:46 AM CDT Cholangiocarcinoma of biliary tract, NOS COMPREHENSIVE METABOLIC PANEL Routine 12/29/2024 10:46 AM CDT Cholangiocarcinoma of biliary tract, NOS COMPLETE BLOOD COUNT W/ DIFFERENTIAL Routine 12/29/2024 10:46 AM CDT Cholangiocarcinoma of biliary tract, NOS CT CHEST ABDOMEN PELVIS W WO CONTRAST LIVER Routine 10/27/2024 3:02 PM CDT Cholangiocarcinoma of biliary tract, NOS .CBC Routine 10/27/2024 11:58 AM CDT Cholangiocarcinoma of biliary tract, NOS CARCINOEMBRYONIC ANTIGEN Routine 10/27/2024 11:58 AM CDT Cholangiocarcinoma of biliary tract, NOS CARBOHYDRATE ANTIGEN 19-9 Routine 10/27/2024 11:58 AM CDT Cholangiocarcinoma of biliary tract, NOS COMPREHENSIVE METABOLIC PANEL Routine 10/27/2024 11:58 AM CDT Cholangiocarcinoma of biliary tract, NOS COMPLETE BLOOD COUNT W/ DIFFERENTIAL Routine 10/27/2024 11:58 AM CDT Cholangiocarcinoma of biliary tract, NOS .CBC Routine 08/28/2024 10:25 AM [employer]IAN Cholangiocarcinoma of biliary tract, NOS MAGNESIUM LEVEL Routine 08/28/2024 10:25 AM [employer]RARIAN Cholangiocarcinoma of biliary tract, NOS LACTATE DEHYDROGENASE Routine 08/28/2024 10:25 AM [employer]RARIAN Cholangiocarcinoma of biliary tract, NOS COMPREHENSIVE METABOLIC PANEL Routine 08/28/2024 10:25 AM [employer]RARIAN Cholangiocarcinoma of biliary tract, NOS COMPLETE BLOOD COUNT W/ DIFFERENTIAL Routine 08/28/2024 10:25 AM [employer]RARIAN Cholangiocarcinoma of biliary tract, NOS CT GI SIMULATION WITH AND WITHOUT CONTRAST Routine 08/08/2024 4:40 PM [employer]RARIAN Cholangiocarcinoma of biliary tract, NOS CT CHEST ABDOMEN PELVIS W WO CONTRAST LIVER Routine 07/30/2024 2:58 PM [employer]RARIAN Cholangiocarcinoma of biliary tract, NOS .CBC Routine 07/22/2024 1:41 PM [employer]RARIAN Liver mass BOSTONGENE TUMOR PORTRAIT (SEND OUT) BLD Routine 07/22/2024 1:41 PM [employer]RARIAN Liver mass HEMOGLOBIN A1C Routine 07/22/2024 1:41 PM [employer]RARIAN Liver mass LIPID PANEL Routine 07/22/2024 1:41 PM [employer]RARIAN Liver mass HEPATITIS C VIRUS ANTIBODY Routine 07/22/2024 1:41 PM [employer]RARIAN Liver mass HEPATITIS C QUANT PCR, SERUM Routine 07/22/2024 1:41 PM [employer]RARIAN Liver mass HEPATITIS C GENOTYPE Routine 07/22/2024 1:41 PM [employer]RARIAN Liver mass HEPATITIS B QUANT PCR, SERUM Routine 07/22/2024 1:41 PM [employer]RARIAN Liver mass HEPATITIS B CORE ANTIBODY Routine 07/22/2024 1:41 PM [employer]RARIAN Liver mass HEPATITIS B SURFACE ANTIGEN Routine 07/22/2024 1:41 PM [employer]RARIAN Liver mass HEPATITIS B SURFACE ANTIBODY Routine 07/22/2024 1:41 PM [employer]RARIAN Liver mass CARCINOEMBRYONIC ANTIGEN Routine 07/22/2024 1:41 PM [employer]RARIAN Liver mass CARBOHYDRATE ANTIGEN 19-9 Routine 07/22/2024 1:41 PM [employer]RARIAN Liver mass ALPHA FETOPROTEIN TUMOR MARKER Routine 07/22/2024 1:41 PM [employer]RARIAN Liver mass PROTHROMBIN TIME Routine 07/22/2024 1:41 PM [employer]RARIAN Liver mass COMPREHENSIVE METABOLIC PANEL Routine 07/22/2024 1:41 PM [employer]RARIAN Liver mass COMPLETE BLOOD COUNT W/ DIFFERENTIAL Routine 07/22/2024 1:41 PM [employer]RARIAN Liver mass AP BOSTONGENE TUMOR PORTRAIT (SEND OUT) MATERIAL REQUEST Routine 07/22/2024 11:57 AM [employer]RARIAN Liver mass MDA AP IHC WORKUP Routine 07/22/2024 11: 57 AM [employer]RARIAN Liver mass IR US GUIDED BIOPSY LIVER 60 Routine [...] COMPLETE Routine 02/06/2024 4:15 PM CDT Cancer after 02/05/2024 Results * Pathology Biopsy Interpretation (01/30/2025 10:19 AM CDT) Only the most recent of2 resultswithin the time period is included. Submitted Clinical History Cholangiocarcinoma of biliary tract, NOS [C24.9] 02/03/2025 1:00 PM CDT [facility] Diagnosis A: Liver, liver biopsy: POORLY DIFFERENTIATED ADENOCARCINOMA INVOLVING LIVER. SEE COMMENT. 02/03/2025 1:00 PM CDT [facility] at 1300 CDT Preliminary result electronically signed by SRIRAM LORA MD on 02/02/2025 at 1616 CDT Comment The tumor is negative for CDX2, PAX8 and albumin by in situ hybridization. The tumor is morphologically similar to the previous liver biopsy ([id number]), which is positive for cytokeratin 7 and focally positive for albumin by in situ hybridization. Therefore, an intrahepatic cholangiocarcinoma is favored. However metastasis from other anatomic sites cannot be excluded. Clinical correlation is recommended. 02/03/2025 1:00 PM CDT [facility] Gross Description A: Liver, liver biopsy: Multiple drake-brown tissue cores and core fragments, 1.5 x 0.2 x 0.1 cm in aggregate, entirely submitted in A1. ET 02/03/2025 1:00 PM CDT [facility] Biomarker Block(s) Block for biomarker testing: A1 Normal block: NA 02/03/2025 1:00 PM CDT [facility] Disclaimer "Some tests reported here may have been developed and performance characteristics determined by [facility]. These tests have not been specifically cleared or approved by the U.S. Food and Drug Administration. If applicable, controls were reviewed and showed appropriate reactivity." 02/03/2025 1:00 PM CDT [facility] Tissue (Liver) 01/30/2025 10 :19 AM CDT 01/30/2025 10:55 AM CDT us Mariposa FOY LAB PATHOLOGY ORDERABLES Final Result [facility] [address] [place] [address], [place] * IR CT GUIDED MICROWAVE ABLATION LIVER (01/30/2025 8:57 AM CDT) Anatomical Region Laterality Modality Abdomen/Pelvis Other Narrative 01/30/2025 4:27 PM CDT Date of Procedure: 01/30/25 Attending Physician: Lillie Allen MD Vineyardist: Moreno Hinson Pre Procedure Diagnosis: Cholangiocarcinoma Post Procedure Diagnosis: Unchanged Indication: Inoperable malignancy Title of Procedure: CT-guided percutaneous liver ablation. CT-Guided Core Needle Biopsy of Tumor in Liver Segment VIII Operative Findings: Percutaneous image-guided Microwave Ablation of [address]-Guided Core Needle Biopsy of Tumor in Liver Segment VIII Consent: The procedure, risks, indications and alternatives were explained. All questions were answered and informed consent was obtained. I have reviewed the history and physical dictated by the MARIN / fellow. Sedation/Anesthesia: General anesthesia provided by Anesthesia Department. Procedure in Detail: A time out was performed prior to the start of the procedure and the correct patient, procedure, presence of consent, site, and side were confirmed with all members of the team. With the patient in the patient in supine position, the skin overlying the area of interest was prepped and draped in the usual sterile fashion. Images were obtained and stored on patient's medical record for procedure planning, guidance and immediate assessment. CT-imaging guidance was used to to target and treat the following lesions in the liver. Lesion #1: CT date: 12/29/2024 Series: 13 Image: 21 Segment: VIII Diameter: 1.0 cm Other previous LRT on this lesion: None Subcapsular location: Yes Adjacent to major vessel: No Ablation modality: Microwave Ablation Number of probes: 1 Type of probes: Emprint Overall duration of ablation (including overlaps): 5 minutes Power: 75 W Maximum temperature achieved: 100° Celsius Lesion #2: CT date: 12/29/2024 Series: 13 Image: 31 Segment: VIII Diameter: 1.3 cm Other previous LRT on this lesion: None Subcapsular location: No Adjacent to major vessel: Yes Ablation modality: Microwave Ablation Number of probes: 1 Type of probes: Emprint Overall duration of ablation (including overlaps): 7 minutes Power: 75,100 W Maximum temperature achieved: 100° Celsius All probes were removed and were deemed to be intact. Tract cauterization was performed. Contrast-enhanced CT scan immediately after the ablation demonstrated: Presence of additional lesions: Present Contrast extravasation: No Ablation confirmation software used or not: Pre- and post-ablation contrast-enhanced CT images were reconstructed and processed on a separate dedicated workstation Ablation confirmation software: My Ablation Guide. Tumor(s) contour, ablation applicator(s) pathways, and ablation zone(s) simulations were performed on pre-ablation CT images. Planning and intraprocedural confirmation of target lesion(s) and ablative margin(s) were performed using ablation planning and confirmation software, including 3D rendering. This was followed by 3D fusion and registration of pre- and post-ablation CT images for comparison and quantification of the simulated versus actual ablation cavity and its margins. Under CT guidance, local anesthesia was administered with 1% lidocaine at the skin and along the anticipated needle tract. A 17-gauge core biopsy needle was advanced into the target lesion in segment VIII using stepwise CT imaging to confirm accurate needle placement. A total of 3 core tissue samples were obtained without complication. Each specimen was immediately placed in formalin and sent for pathology. Additional Comments: None Estimated Blood Loss: Minimal Specimens Removed: Yes - Sample sent to Pathology. Immediate Complications: None Disposition: PACU Plan: Imaging follow-up should be obtained 4-12 weeks after from the date of this procedure. Further recommendations will be based on the assessment of the initial imaging follow-up and clinical evaluation. I certify my physical presence at the time of the procedure. I personally reviewed the image(s) and the resident's/fellow's interpretation and agree with the written report. us Mariposa FOY G IR ORDERABLES Final Result * IR CT GUIDED BIOPSY LIVER (01/30/2025 8:57 AM CDT) Anatomical Region Laterality Modality Abdomen/Pelvis, Organ (liver/spleen/kidney) Other Narrative 01/30/2025 4:27 PM CDT Date of Procedure: 01/30/25 Attending Physician: Lillie Allen MD Vineyardist: Moreno Hinson Pre Procedure Diagnosis: Cholangiocarcinoma Post Procedure Diagnosis: Unchanged Indication: Inoperable malignancy Title of Procedure: CT-guided percutaneous liver ablation. CT-Guided Core Needle Biopsy of Tumor in Liver Segment VIII Operative Findings: Percutaneous image-guided Microwave Ablation of [address]-Guided Core Needle Biopsy of Tumor in Liver Segment VIII Consent: The procedure, risks, indications and alternatives were explained. All questions were answered and informed consent was obtained. I have reviewed the history and physical dictated by the MARIN / fellow. Sedation/Anesthesia: General anesthesia provided by Anesthesia Department. Procedure in Detail: A time out was performed prior to the start of the procedure and the correct patient, procedure, presence of consent, site, and side were confirmed with all members of the team. With the patient in the patient in supine position, the skin overlying the area of interest was prepped and draped in the usual sterile fashion. Images were obtained and stored on patient's medical record for procedure planning, guidance and immediate assessment. CT-imaging guidance was used to to target and treat the following lesions in the liver. Lesion #1: CT date: 12/29/2024 Series: 13 Image: 21 Segment: VIII Diameter: 1.0 cm Other previous LRT on this lesion: None Subcapsular location: Yes Adjacent to major vessel: No Ablation modality: Microwave Ablation Number of probes: 1 Type of probes: Emprint Overall duration of ablation (including overlaps): 5 minutes Power: 75 W Maximum temperature achieved: 100° Celsius Lesion #2: CT date: 12/29/2024 Series: 13 Image: 31 Segment: VIII Diameter: 1.3 cm Other previous LRT on this lesion: None Subcapsular location: No Adjacent to major vessel: Yes Ablation modality: Microwave Ablation Number of probes: 1 Type of probes: Emprint Overall duration of ablation (including overlaps): 7 minutes Power: 75,100 W Maximum temperature achieved: 100° Celsius All probes were removed and were deemed to be intact. Tract cauterization was performed. Contrast-enhanced CT scan immediately after the ablation demonstrated: Presence of additional lesions: Present Contrast extravasation: No Ablation confirmation software used or not: Pre- and post-ablation contrast-enhanced CT images were reconstructed and processed on a separate dedicated workstation Ablation confirmation software: My Ablation Guide. Tumor(s) contour, ablation applicator(s) pathways, and ablation zone(s) simulations were performed on pre-ablation CT images. Planning and intraprocedural confirmation of target lesion(s) and ablative margin(s) were performed using ablation planning and confirmation software, including 3D rendering. This was followed by 3D fusion and registration of pre- and post-ablation CT images for comparison and quantification of the simulated versus actual ablation cavity and its margins. Under CT guidance, local anesthesia was administered with 1% lidocaine at the skin and along the anticipated needle tract. A 17-gauge core biopsy needle was advanced into the target lesion in segment VIII using stepwise CT imaging to confirm accurate needle placement. A total of 3 core tissue samples were obtained without complication. Each specimen was immediately placed in formalin and sent for pathology. Additional Comments: None Estimated Blood Loss: Minimal Specimens Removed: Yes - Sample sent to Pathology. Immediate Complications: None Disposition: PACU Plan: Imaging follow-up should be obtained 4-12 weeks after from the date of this procedure. Further recommendations will be based on the assessment of the initial imaging follow-up and clinical evaluation. I certify my physical presence at the time of the procedure. I personally reviewed the image(s) and the resident's/fellow's interpretation and agree with the written report. Mariposa FOY [facility] IR ORDERABLES Final Result * (ABNORMAL) Hemogram (01/30/2025 6:21 AM CDT) White Blood Cell 4.4 4.1 - 10.5 K/uL 01/30/2025 6:42 AM CDT [facility] Red Blood Cell 3.80(L) 4.30 - 6.04 M/uL 01/30/2025 6:42 AM CDT [facility] Hemoglobin 11.8(L) 13.3 - 17.4 g/dL 01/30/2025 6:42 AM CDT [facility] Hematocrit 34.4(L) 39.5 - 51.8 % 01/30/2025 6:42 AM CDT [facility] Mean Cell Volume 91 82 - 99 fL 01/30/2025 6:42 AM CDT [facility] Mean Cell Hemoglobin 31.1 26.6 - 33.2 pg 01/30/2025 6:42 AM CDT [facility] Mean Cell Hemoglobin Concentration 34.3 31.1 - 35.2 g/dL 01/30/2025 6:42 AM CDT [facility] RDW-SD 44.0 37.5 - 49.7 fL 01/30/2025 6:42 AM CDT [facility] Red Cell Diameter Width 13.2 11.6 - 15.5 % 01/30/2025 6:42 AM CDT [facility] Platelet 140(L) 160 - 397 K/uL 01/30/2025 6:42 AM CDT [facility] Mean Platelet Volume 9.9 9.1 - 12.6 fL 01/30/2025 6:42 AM CDT [facility] INRBC 0.0 0.0 - 0.1 /100 WBC 01/30/2025 6:42 AM CDT [facility] Comment: The INRBC value reflects the enumeration of nucleated red blood cells contained in a 200uL sample of whole blood analyzed by the instrument. This value may differ from the NRBC value reported in a manual diff, which is based on a 100 cell differential. Blood Peripheral blood specimen / Unknown Venipuncture / Unknown 01/30/2025 6:21 AM CDT 01/30/2025 6:23 AM CDT us Sharon FOY LAB BLOOD ORDERABLES Final Re sult [facility] [address] [place] [address], * Hepatic Function Panel (01/30/2025 6:21 AM CDT) Only the most recent of2 resultswithin the time period is included. Bilirubin Total 0.6 0.0 - 1.2 mg/dL 01/30/2025 7:05 AM CDT [facility] Comment:Indocyanine Green (I CG) may cause falsely elevated bilirubin results. Total and direct bilirubin must not be measured from samples containing indocyanine green. False elevation of total bilirubin can be seen in patients with IgG concentrations above 28 g/L. Bilirubin Direct 0.2 0.0 - 0.2 mg/dL 01/30/2025 7:05 AM CDT [facility] Comment:Indocyanine Green (I CG) may cause falsely elevated bilirubin results. Total and direct bilirubin must not be measured from samples containing indocyanine green. Bilirubin Indirect 0.4 0.0 - 1.0 mg/dL 01/30/2025 7:05 AM CDT [facility] Tot Protein 6.5 6.4 - 8.3 gm/dL 01/30/2025 7:05 AM CDT [facility] Alkaline Phosphatase 108 40 - 129 U/L 01/30/2025 7:05 AM CDT [facility] Albumin Level 4.1 3.5 - 5.2 gm/dL 01/30/2025 7:05 AM CDT [facility] AST 13 <=40 U/L 01/30/2025 7:05 AM CDT [facility] ALT 12 <=41 U/L 01/30/2025 7:05 AM CDT [facility] Blood Peripheral blood specimen / Unknown Venipuncture / Unknown 01/30/2025 6:21 AM CDT 01/30/2025 6:23 AM CDT Sharon FOY LAB BLOOD ORDERABLES Final Re sult [facility] [address] [place] [address], [place] * (ABNORMAL) Basic Metabolic Panel- Total Calcium (01/30/2025 6:21 AM CDT) eGFR 58(L) >=60 mL/min/1. 73 sq. m 01/30/2025 7:05 AM CDT [facility] Comment: The eGFRcr is calculated with [...] G1 nor G2 fulfill criteria for CKD. Calcium Level Total 9.6 8.2 - 10.2 mg/dL 01/30/2025 7:05 AM [facility] Sodium Level 142 136 - 145 mmol/L 01/30/2025 7:05 AM [facility] Potassium Level 3.6 3.4 - 4.5 mmol/L 01/30/2025 7:05 AM [facility] Chloride 106 98 - 107 mmol/L 01/30/2025 7:05 AM [facility] CO2 26 22 - 29 mmol/L 01/30/2025 7:05 AM [facility] Anion Gap 10 4 - 14 mmol/L 01/30/2025 7:05 AM [facility] Creatinine 1.20(H) 0.67 - 1.17 mg/dL 01/30/2025 7:05 AM [facility] BUN 21 6 - 23 mg/dL 01/30/2025 7:05 AM [facility] Glucose Level 98 70 - 99 mg/dL 01/30/2025 7:05 AM [facility] Comment: Effective 01/19/16, the glucose reference intervals have been updated based on [place] [employer] guidelines (Standards of Medical Care in Diabetes 2016. Diabetes Care 2016; 39: S13-S22). Fasting blood glucose: Normal: 70-99 mg/dL Impaired fasting glucose (increased risk for diabetes or pre-diabetes): 100-125 mg/dL Diabetes mellitus: >/=126 mg/dL Random blood glucose: Normal: 70-199 mg/dL Note: Random glucose >100 mg/dL is associated with increased risk for diabetes. Blood Peripheral blood specimen / Unknown Venipuncture / Unknown 01/30/2025 6:21 AM CDT 01/30/2025 6:23 AM CDT Sharon FOY LAB BLOOD ORDERABLES Final Re sult Performing Organization Address City/[facility] Co de Phone Number [address] [address], [place] * (ABNORMAL) Prothrombin Time with INR (01/30/2025 6:21 AM CDT) Only the most recent of3 resultswithin the time period is included. Prothrombin Time 14.1 12.2 - 14.4 second(s) 01/30/2025 6:58 AM CDT [facility] International Normalization Ratio 1.12(H) 0.91 - 1.10 01/30/2025 6:58 AM CDT [facility] Blood Peripheral blood specimen / Unknown Venipuncture / Unknown 01/30/2025 6:21 AM CDT 01/30/2025 6:24 AM CDT Sharon FOY LAB BLOOD ORDERABLES Final Re sult Performing Organization Address City/[facility]/ZIP Co de Phone Number [address] [address] * Type and Screen (01/30/2025 6:21 AM CDT) Only the most recent of2 resultswithin the time period is included. ABORh O POS 01/30/2025 6:02 AM CDT [facility] ABSC Negative 01/30/2025 6:02 AM CDT [facility] Clot Expiration 02/02/2025 23:59 01/30/2025 6:02 AM CDT [facility] Historical Record Check Complete 01/30/2025 6:02 AM CDT [facility] Blood Peripheral blood specimen / Unknown Venipuncture / Unknown 01/30/2025 6:21 AM CDT 01/30/2025 6:23 AM CDT us Sharon Mgluca LAW BLOOD BANK TEST ORDERABLES Fi nal Result [facility] [address] [place] [address], [place] * CT CAP W/WO Contrast (Liver Protocol) (12/29/2024 1:27 PM CDT) Only the most recent of3 resultswithin the time period is included. Anatomical Region Laterality Modality Chest, Abdomen, Pelvis Computed Tomography 12/30/2024 8:10 AM CDT Impressions 12/30/2024 9:10 AM CDT Post radiation changes are seen in the right lobe. The dominant tumor in segment 8 is unchanged and largely necrotic. There has been interval development of hypodense lesions adjacent to the mass suggestive of satellite lesions outside the radiation field. No evidence of extrahepatic disease. The right kidney is surgically absent. No evidence of local recurrence. No pulmonary or bone metastases or adenopathy. There are stable nonspecific pulmonary nodules that can be followed ACTIONABLE ITEMS/RECOMMENDATIONS*: None. *An Actionable Finding is a finding that may be unrelated to the original reason for imaging but potentially actionable, meaning further investigation may be necessary. The Actionable Findings Vigilance Unit (AFVU) assists medical providers with responding to additional radiologic findings that are unexpected and potentially actionable. Narrative 12/30/2024 9:10 AM CDT FULL RESULT: Examination: CT CHEST ABDOMEN PELVIS W WO CONTRAST LIVER on 12/29/2024 1:27 PM. Clinical History: Cholangiocarcinoma of biliary tract, NOS. Indication: restaging. Comparison: 10/27/2024. Technique: CT CHEST ABDOMEN PELVIS W WO CONTRAST LIVER. CHEST FINDINGS: Tubes and Lines: None. Thoracic Lymph Nodes: There is no mediastinal, hilar or axillary adenopathy. Mediastinum: There is coronary artery calcification. Pleura: Stable minor pleural thickening at the lung bases. Lungs and Airways: Stable nonspecific subcentimeter pulmonary nodules (19:90, 19:115). These can be followed. ABDOMEN AND PELVIS FINDINGS: Hepatobiliary: The 5.2 cm mass in segment 8 (13:41) is unchanged in size. It is hypodense, consistent with necrosis. Post radiation changes are seen in the adjacent liver. Superior to this mass, there has been interval development of hypodense satellite lesions measuring up to 1.3 cm (13:31, 13:21, 18:146). These could be outside the radiation field. There are subcentimeter liver cysts. There is intrahepatic biliary dilatation in segment 6 and 5 due to the mass. There is cholelithiasis. Spleen: There is no splenomegaly or splenic mass. Pancreas: No mass or ductal dilatation. 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 Kidneys, Ureters, Bladder: The right kidney is surgically absent. No evidence of local recurrence. No left hydronephrosis. No suspicious left renal lesion. No bladder mass. Gastrointestinal Tract: There is no bowel obstruction or mass. Pelvic Organs: Stable prostatomegaly. Peritoneum/Retroperitoneum: There is no peritoneal fluid or mass. Bilateral fat-containing inguinal hernias. Lymph Nodes: There is no abdominal or pelvic adenopathy. Musculoskeletal: No suspicious skeletal lesion. Procedure Note Chon Gann MD - 12/30/2024 FULL RESULT: Examination: CT CHEST ABDOMEN PELVIS W WO CONTRAST LIVER on 12/29/2024 1:27PM. Clinical History: Cholangiocarcinoma of biliary tract, NOS. Indication: restaging. Comparison: 10/27/2024. Technique: CT CHEST ABDOMEN PELVIS W WO CONTRAST LIVER. CHEST FINDINGS: Tubes and Lines: None. Thoracic Lymph Nodes: There is no mediastinal, hilar or axillaryadenopathy. Mediastinum: There is coronary artery calcification. Pleura: Stable minor pleural thickening at the lung bases. Lungs and Airways: Stable nonspecific subcentimeter pulmonary nodules(19:90, 19:115). These can be followed. ABDOMEN AND PELVIS FINDINGS: Hepatobiliary: The 5.2 cm mass in segment 8 (13:41) is unchanged in size.It is hypodense, consistent with necrosis. Post radiation changes are seenin the adjacent liver. Superior to this mass, there has been intervaldevelopment of hypodense satellite lesions measuring up to 1.3 cm (13:31,13:21, 18:146). These could be outside the radiation field. There are subcentimeter liver cysts. There is intrahepatic biliarydilatation in segment 6 and 5 due to the mass. There is cholelithiasis. Spleen: There is no splenomegaly or splenic mass. Pancreas: No mass or ductal dilatation. Adrenal Glands: There is a stable 1.7 cm right adrenal nodule with densitymeasurements consistent with adenoma. Kidneys, Ureters, Bladder: The right kidney is surgically absent. Noevidence of local recurrence. No left hydronephrosis. No suspicious leftrenal lesion. No bladder mass. Gastrointestinal Tract: There is no bowel obstruction or mass. Pelvic Organs: Stable prostatomegaly. Peritoneum/Retroperitoneum: There is no peritoneal fluid or mass.Bilateral fat-containing inguinal hernias. Lymph Nodes: There is no abdominal or pelvic adenopathy. Musculoskeletal: No suspicious skeletal lesion. IMPRESSION: Post radiation changes are seen in the right lobe. The dominant tumor insegment 8 is unchanged and largely necrotic. There has been intervaldevelopment of hypodense lesions adjacent to the mass suggestive ofsatellite lesions outside the radiation field. No evidence of extrahepaticdisease. The right kidney is surgically absent. No evidence of local recurrence. No pulmonary or bone metastases or adenopathy. There are stablenonspecific pulmonary nodules that can be followed ACTIONABLE ITEMS/RECOMMENDATIONS*: None. *An Actionable Finding is a finding that may be unrelated to the originalreason for imaging but potentially actionable, meaning furtherinvestigation may be necessary. The Actionable Findings Vigilance Unit(AFVU) assists medical providers with responding to additional radiologicfindings that are unexpected and potentially actionable. Ryann FOY [facility] CT ORDERABLES Final Result * (ABNORMAL) .CBC (12/29/2024 10:46 AM CDT) Only the most recent of5 resultswithin the time period is included. White Blood Cell 6.2 4.1 - 10.5 K/uL 12/29/2024 10:51 AM CDT [facility] Red Blood Cell 4.14(L) 4.30 - 6.04 M/uL 12/29/2024 10:51 AM [facility] Hemoglobin 12.5(L) 13.3 - 17.4 g/dL 12/29/2024 10:51 AM [facility] Hematocrit 38.4(L) 39.5 - 51.8 % 12/29/2024 10:51 AM [facility] Mean Cell Volume 93 82 - 99 fL 12/29/2024 10:51 AM [facility] Mean Cell Hemoglobin 30.2 26.6 - 33.2 pg 12/29/2024 10:51 AM [facility] Mean Cell Hemoglobin Concentration 32.6 31.1 - 35.2 g/dL 12/29/2024 10:51 AM [facility] RDW-SD 44.2 37.5 - 49.7 fL 12/29/2024 10:51 AM [facility] Red Cell Diameter Width 13.0 11.6 - 15.5 % 12/29/2024 10:51 AM [facility] Platelet 174 160 - 397 K/uL 12/29/2024 10:51 AM [facility] Mean Platelet Volume 9.2 9.1 - 12.6 fL 12/29/2024 10:51 AM [facility] Neutrophil % 84.4(H) 43.2 - 72.7 % 12/29/2024 10:51 AM [facility] Lymphocyte % 7.1(L) 16.8 - 46.2 % 12/29/2024 10:51 AM [facility] Monocyte % 7.0 5.1 - 12.5 % 12/29/2024 10:51 AM [facility] Eosinophil % 1.0 0.4 - 6.3 % 12/29/2024 10:51 AM [facility] Basophil % 0.3 0.2 - 1.4 % 12/29/2024 10:51 AM [facility] IGRE % 0.2 0.1 - 1.5 % 12/29/2024 10:51 AM [facility] Comment:The IGRE% includes M etamyelocytes, Myelocytes and Promyelocytes. Neutrophil Abs 5.22 1.95 - 7.25 K/uL 12/29/2024 10:51 AM [facility] Lymphocyte Abs 0.44(L) 1.01 - 3.24 K/uL 12/29/2024 10:51 AM [facility] Monocyte Abs 0.43 0.24 - 0.85 K/uL 12/29/2024 10:51 AM [facility] Eosinophil Abs 0.06 0.02 - 0.50 K/uL 12/29/2024 10:51 AM [facility] Basophil Abs 0.02 0.02 - 0.09 K/uL 12/29/2024 10:51 AM [facility] IG Abs 0.01 0.01 - 0.12 K/uL 12/29/2024 10:51 AM [facility] Blood Peripheral blood specimen / Unknown Venipuncture / Unknown 12/29/2024 10:46 AM CDT 12/29/2024 10:46 AM CDT us Ryann FOY LAB BLOOD ORDERABLES Final Resul t [facility] [address] [facility], [facility] [address] [place] [address] * CMP (12/29/2024 10:46 AM CDT) Only the most recent of4 resultswithin the time period is included. Bilirubin Total 0.9 0.0 - 1.2 mg/dL 12/29/2024 11:14 AM [facility] Comment:Indocyanine Green (I CG) may cause falsely elevated bilirubin results. Total and direct bilirubin must not be measured from samples containing indocyanine green. False elevation of total bilirubin can be seen in patients with IgG concentrations above 28 g/L. eGFR 64 >=60 mL/min/1.7 3 sq. m 12/29/2024 11:14 AM [facility] Comment: The eGFRcr is calculated with the 202 CKD-EPI creatinine equation using creatinine, patient's age, [...] G1 nor G2 fulfill criteria for CKD. Tot Protein 6.6 6.4 - 8.3 gm/dL 12/29/2024 11:14 AM [facility] Calcium Level Total 9.2 8.2 - 10.2 mg/dL 12/29/2024 11:14 AM [facility] Alkaline Phosphatase 116 40 - 129 U/L 12/29/2024 11:14 AM [facility] Albumin Level 4.0 3.5 - 5.2 gm/dL 12/29/2024 11:14 AM [facility] AST 14 <=40 U/L 12/29/2024 11:14 AM [facility] ALT 11 <=41 U/L 12/29/2024 11:14 AM [facility] Sodium Level 142 136 - 145 mmol/L 12/29/2024 11:14 AM [facility] Potassium Level 3.8 3.4 - 4.5 mmol/L 12/29/2024 11:14 AM [facility] Chloride 106 98 - 107 mmol/L 12/29/2024 11:14 AM [facility] CO2 27 22 - 29 mmol/L 12/29/2024 11:14 AM [facility] Anion Gap 9 4 - 14 mmol/L 12/29/2024 11:14 AM [facility] Creatinine 1.10 0.67 - 1.17 mg/dL 12/29/2024 11:14 AM [facility] BUN 18 6 - 23 mg/dL 12/29/2024 11:14 AM [facility] Glucose Level 99 70 - 99 mg/dL 12/29/2024 11:14 AM [facility] Comment: Effective 01/19/16, the glucose reference intervals have been updated based on [place] Diabetes [employer] guidelines (Standards of Medical Care in Diabetes 2016. Diabetes Care 2016; 39: S13-S22). Fasting blood glucose: Normal: 70-99 mg/dL Impaired fasting glucose (increased risk for diabetes or pre-diabetes): 100-125 mg/dL Diabetes mellitus: >/=126 mg/dL Random blood glucose: Normal: 70-199 mg/dL Note: Random glucose >100 mg/dL is associated with increased risk for diabetes. Blood Peripheral blood specimen / Unknown Venipuncture / Unknown 12/29/2024 10:46 AM CDT 12/29/2024 10:46 AM CDT us Ryann FOY LAB BLOOD ORDERABLES Final Resul t Performing Organization Address City/[facility]/ZIP Co de Phone Number [facility] [address] [address] [place] [address] * AFP (12/29/2024 10:46 AM CDT) Only the most recent of3 resultswithin the time period is included. Alpha Fetoprotein (AFP) Tumor Marker <2.7 <=8.3 ng/mL 12/30/2024 2:45 PM CDT [facility] Blood Peripheral blood specimen / Unknown Venipuncture / Unknown 12/29/2024 10:46 AM CDT 12/29/2024 10:46 AM CDT Narrative [facility] - 12/30/2024 2:45 PM CDT Results greater than 45,875.00 ng/mL may not be reliable due to matrix effect with extended dilution as it exceeds the fire crew worker's recommended limit. Caution should be exercised when interpreting such values and done in conjunction with clinical context. This test is measured by electrochemiluminescence immunoassay on Wilbert Issa immunoassay analyzers. Results obtained in different methods are not interchangeable. us Raymundo Langley MD LAB BLOOD ORDERABLES Final Resul t [id number] [place] [address] * (ABNORMAL) CA 19-9 (12/29/2024 10:46 AM CDT) Only the most recent of4 resultswithin the time period is included. CA 19-9 69.6(H) <=35.0 U/mL 12/29/2024 11:20 AM CDT [facility] Blood Peripheral blood specimen / Unknown Venipuncture / Unknown 12/29/2024 10:46 AM CDT 12/29/2024 10:[address] [facility] - 12/29/2024 11:20 AM CDT Results greater than 9500 U/mL may not be reliable due to matrix effect with extended dilution as it exceeds the fire crew worker's recommended limit. Caution should be exercised when interpreting such values and done in conjunction with clinical context. This test is measured by electrochemiluminescence immunoassay on Wilbert Issa immunoassay analyzers. Results obtained in different methods are not interchangeable. Ryann FOY LAB BLOOD ORDERABLES Final Resul t [facility] [address] [facility], [facility] [address] [place] [address] * CEA Ag (12/29/2024 10:46 AM CDT) Only the most recent of4 resultswithin the time period is included. Carcinoembryonic Antigen 1.4 <=3.8 ng/mL 12/30/2024 7:23 AM CDT [facility] Blood Peripheral blood specimen / Unknown Venipuncture / Unknown 12/29/2024 10:46 AM CDT 12/29/2024 10:[address] [facility] - 12/30/2024 7:23 AM CDT Reference Ranges (age 20-69 years): Non-smoker: <= 3.8 ng/mL Smoker: <= 5.5 ng/mL This test is measured by electrochemiluminescence immunoassay on Wilbert Issa immunoassay analyzers. Results obtained in different methods are not interchangeable. Raymundo Langley MD LAB BLOOD ORDERABLES Final Resul t [facility] [address] [facility], [facility] [address] [place] [address] * Magnesium Level (08/28/2024 10:25 AM PRIMARY SCHOOL TEACHER LIBRARIAN) Only the most recent of2 resultswithin the time period is included. Magnesium Level 2.2 1.6 - 2.6 mg/dL 08/28/2024 11:17 AM PRIMARY SCHOOL TEACHER LIBRARIAN [facility] Blood Peripheral blood specimen / Unknown Venipuncture / Unknown 08/28/2024 10:25 AM PRIMARY SCHOOL TEACHER LIBRARIAN 08/28/2024 10:26 AM PRIMARY SCHOOL TEACHER LIBRARIAN Lesly Gale APRN LAB BLOOD ORDERABLES Final Result Performing Organization Address [facility]/ZIP Co de Phone Number [facility] Unless otherwise noted, all lab tests performed by: Division of Pathology and Laboratory Medicine [address] [place] [address] * LDH (08/28/2024 10:25 AM PRIMARY SCHOOL TEACHER LIBRARIAN) Only the most recent of2 resultswithin the time period is included. LDH 202 135 - 225 U/L 08/28/2024 11:17 AM PRIMARY SCHOOL TEACHER LIBRARIAN [facility] Blood Peripheral blood specimen / Unknown Venipuncture / Unknown 08/28/2024 10:25 AM PRIMARY SCHOOL TEACHER LIBRARIAN 08/28/2024 10:26 AM PRIMARY SCHOOL TEACHER LIBRARIAN Narrative [facility] - 08/28/2024 11:17 AM PRIMARY SCHOOL TEACHER LIBRARIAN Results greater than 1651 U/L may not be reliable due to matrix effect with extended dilution as it exceeds the fire crew worker's recommended limit. Caution should be exercised when interpreting such values and done in conjunction with clinical context. Lesly Gale APRN LAB BLOOD ORDERABLES Final Result [facility] Unless otherwise noted, all lab tests performed by: Division of Pathology and Laboratory Medicine [address] [place] [address] * CT GI Simulation with Contrast - Initial (08/08/2024 4:40 PM PRIMARY SCHOOL TEACHER LIBRARIAN) Narrative Systemgenerated, Documentation - 08/08/2024 4:41 PM PRIMARY SCHOOL TEACHER LIBRARIAN This procedure requires no interpretation from the radiologist. Patsy Langley FISH CLEANER MACHINE TENDER IMG RO CT SIM ORDERABLES Final Result * [facility] Tumor Portrait (Send Out) Germline Collection, Blood - [facility] Collection (07/22/2024 1:41 PM PRIMARY SCHOOL TEACHER LIBRARIAN) [facility] Tumor Potrait Shipped 07/23/2024 7:32 AM PRIMARY SCHOOL TEACHER LIBRARIAN [facility] Comment:Specimen for [facility] testing was obtained, processed and sent out to the [facility]. Refer to the performing lab for results. Blood Peripheral blood specimen / Unknown Venipuncture / Unknown 07/22/2024 1:41 PM PRIMARY SCHOOL TEACHER LIBRARIAN 07/22/2024 1:50 PM PRIMARY SCHOOL TEACHER LIBRARIAN Narrative [facility] - 07/23/2024 7:32 AM PRIMARY SCHOOL TEACHER LIBRARIAN Tracking #: [id number] Marium FOY LAB BLOOD ORDERABLES Final Result [facility] Unless otherwise noted, all lab tests performed by: Division of Pathology and Laboratory Medicine [address] [place] [address] * Hepatitis C Virus RNA Detect/Quant (07/22/2024 1:41 PM PRIMARY SCHOOL TEACHER LIBRARIAN) [facility] HepC RNA PCR [facility] Undetected Undetected IU/mL 07/23/2024 11:39 PM PRIMARY SCHOOL TEACHER LIBRARIAN [facility] Comment: Result in log IU/mL is Undetected. ADDITIONAL INFORMATION The quantification range of this assay is 15 to 100,000,000 IU/mL (1.18 log to 8.00 log IU/mL). Testing was performed using the issa HCV test ([employer] Test Performed by: [facility] [address] [id number] Commercial Leasing Agent: Jourdan Gibbs Ph.D.; CLIA# [id number] Blood Peripheral blood specimen / Unknown Venipuncture / Unknown 07/22/2024 1:41 PM PRIMARY SCHOOL TEACHER LIBRARIAN 07/22/2024 1:50 PM PRIMARY SCHOOL TEACHER LIBRARIAN Marium Taiwo FOY LAB BLOOD ORDERABLES Final Result Performing Organization Address City/[facility]/ZIP Co de Phone Number [facility] * HBV DNA Quant (07/22/2024 1:41 PM PRIMARY SCHOOL TEACHER LIBRARIAN) [facility] HBV DNA [facility] Undetected Undetected IU/mL 07/24/2024 11:17 AM PRIMARY SCHOOL TEACHER LIBRARIAN [facility]ICA Comment: Result in log IU/mL is Undetected. ADDITIONAL INFORMATION The quantification range of this assay is 10 to 1,000,000,000 IU/mL (1.00 log to 9.00 log IU/mL). Testing was performed using the issa HBV test ([employer] Test Performed by: [facility] [place] [address] Commercial Leasing Agent: Jourdan Gibbs Ph.D.; CLIA# [id number] Blood Peripheral blood specimen / Unknown Venipuncture / Unknown 07/22/2024 1:41 PM PRIMARY SCHOOL TEACHER LIBRARIAN 07/22/2024 1:50 PM PRIMARY SCHOOL TEACHER LIBRARIAN us Marium FOY LAB BLOOD ORDERABLES Final Result [facility] * Hepatitis C Virus Antibody (07/22/2024 1:41 PM PRIMARY SCHOOL TEACHER LIBRARIAN) Only the most recent of2 resultswithin the time period is included. [facility] HCVAb. Non Reactive Non Reactive 07/22/2024 2:56 PM PRIMARY SCHOOL TEACHER LIBRARIAN [facility] Blood Peripheral blood specimen / Unknown Venipuncture / Unknown 07/22/2024 1:41 PM PRIMARY SCHOOL TEACHER LIBRARIAN 07/22/2024 1:50 PM PRIMARY SCHOOL TEACHER LIBRARIAN Narrative [facility] - 07/22/2024 2:56 PM PRIMARY SCHOOL TEACHER LIBRARIAN Antibody detection in the immunocompromised and immunosuppressed population may be delayed or absent entirely. Therefore serial testing, correlation with other clinical findings, and supplemental testing (if available) should be taken into consideration when interpreting the results. Marium FOY LAB BLOOD ORDERABLES Final Result Performing Organization Address City/[facility] Co de Phone Number [facility] Unless otherwise noted, all lab tests performed by: Division of Pathology and Laboratory Medicine [address] [place] [address] * Hepatitis B Total Ig Core Ab (SCREENING) (anti-HBc total Ig; HBcAb total Ig) (07/22/2024 1:41 PM PRIMARY SCHOOL TEACHER LIBRARIAN) [facility] HBcAb. Non Reactive Non Reactive 07/22/2024 2:55 PM PRIMARY SCHOOL TEACHER LIBRARIAN [facility] Blood Peripheral blood specimen / Unknown Venipuncture / Unknown 07/22/2024 1:41 PM PRIMARY SCHOOL TEACHER LIBRARIAN 07/22/2024 1:50 PM PRIMARY SCHOOL TEACHER LIBRARIAN Marium FOY LAB BLOOD ORDERABLES Final Result Performing Organization Address [facility] de Phone Number [facility] Unless otherwise noted, all lab tests performed by: Division of Pathology and Laboratory Medicine [address] [place] [address] * Hepatitis C Genotype (07/22/2024 1:41 PM PRIMARY SCHOOL TEACHER LIBRARIAN) Pathologist [facility] Hep C [facility] 7:26 AM PRIMARY SCHOOL TEACHER LIBRARIAN [facility] Comment: HCV Genotype, S was cancelled on 07/24/2024 at 07:26; Test not performed. HCV genotyping not performed, because of insufficient HCV viral load. Specimens submitted for HCV genotyping must have viral load of 500 IU/mL or greater within 30 days of genotype testing to generate successful genotype results. Test Performed by: [facility] [address] [place] [id number] Commercial Leasing Agent: Jourdan Gibbs Ph.D.; CLIA# [id number] Blood Peripheral blood specimen / Unknown Venipuncture / Unknown 07/22/2024 1:41 PM PRIMARY SCHOOL TEACHER LIBRARIAN 07/22/2024 1:50 PM PRIMARY SCHOOL TEACHER LIBRARIAN us Marium E Wendy PA LAB BLOOD ORDERABLES Final Result [facility] * Hepatitis B Surface Antibody (07/22/2024 1:41 PM PRIMARY SCHOOL TEACHER LIBRARIAN) Pathologist [facility] HBsAb Non Reactive 07/22/2024 2:56 PM PRIMARY SCHOOL TEACHER LIBRARIAN [facility] Blood Peripheral blood specimen / Unknown Venipuncture / Unknown 07/22/2024 1:41 PM PRIMARY SCHOOL TEACHER LIBRARIAN 07/22/2024 1:50 PM PRIMARY SCHOOL TEACHER LIBRARIAN Narrative [facility] - 07/22/2024 2:56 PM PRIMARY SCHOOL TEACHER LIBRARIAN Vaccinated individual: Reactive Unvaccinated individual: Non-Reactive us Marium E Wendy PA LAB BLOOD ORDERABLES Final Result [facility] Unless otherwise noted, all lab tests performed by: Division of Pathology and Laboratory Medicine [address] [place] [address] * Hepatitis B Surface Ag (07/22/2024 1:41 PM PRIMARY SCHOOL TEACHER LIBRARIAN) [facility] HBsAg. Non Reactive Non Reactive 07/22/2024 2:55 PM PRIMARY SCHOOL TEACHER LIBRARIAN [facility] Blood Peripheral blood specimen / Unknown Venipuncture / Unknown 07/22/2024 1:41 PM PRIMARY SCHOOL TEACHER LIBRARIAN 07/22/2024 1:50 PM PRIMARY SCHOOL TEACHER LIBRARIAN us Marium E Wendy PA LAB BLOOD ORDERABLES Final Result [facility] Unless otherwise noted, all lab tests performed by: Division of Pathology and Laboratory Medicine [address] [place] [address] * Hemoglobin A1c (07/22/2024 1:41 PM PRIMARY SCHOOL TEACHER LIBRARIAN) [facility] Hemoglobin A1c 4.7 4.3 - 5.6 % 07/22/2024 2:19 PM [facility] Blood Peripheral blood specimen / Unknown Venipuncture / Unknown 07/22/2024 1:41 PM PRIMARY SCHOOL TEACHER LIBRARIAN 07/22/2024 1:50 PM PRIMARY SCHOOL TEACHER LIBRARIAN Narrative [facility] - 07/22/2024 2:19 PM PRIMARY SCHOOL TEACHER LIBRARIAN HbA1c values >=6.5% are diagnostic of diabetes mellitus. Diagnosis should be confirmed by repeat testing. Therapeutic Action suggested: >8.0% HbA1c; Goal of therapy: <7.0% HbA1c us Marium FOY LAB BLOOD ORDERABLES Final Result [facility] Unless otherwise noted, all lab tests performed by: Division of Pathology and Laboratory Medicine [address] [place] [address] * Lipid Panel (07/22/2024 1:41 PM [facility]) Cholesterol Total 124 <200 mg/dL 07/22/2024 2:29 PM [facility] Comment: ATP III Classification of Total Cholesterol - Primary Target of Therapy (in mg/dL): <200 Desirable 200-239 Borderline high >=240 High Triglyceride 131 <150 mg/dL 07/22/2024 2:29 PM [facility] Comment: ATP III Classification of Serum Triglycerides Primary Target of Therapy (in mg/dL): <150 Normal 150-199 Borderline high 200-499 High >=500 Very high Non-fasting triglycerides >200 mg/dL may be followed up with a fasting Lipid Panel. Calculated LDL-C may be falsely decreased when non-fasting triglycerides >200 mg/dL. HDL Cholesterol 47 >=40 mg/dL 07/22/2024 2:29 PM [facility] LDL Cholesterol 51 <=100 mg/dL 07/22/2024 2:29 PM [facility] Comment: ATP III Classification of LDL Cholesterol Primary Target of Therapy (in mg/dL): <100 Optimal 100-129 Near optimal/above optimal 130-159 Borderline high 160-189 High >=190 Very high Very Low Density Lipoprotein 26 mg/dL 07/22/2024 2:29 PM [facility] Is patient fasting? No 07/22 2:29 PM PRIMARY SCHOOL TEACHER LIBRARIAN [facility] Blood Peripheral blood specimen / Unknown Venipuncture / Unknown 07/22/2024 1:41 PM PRIMARY SCHOOL TEACHER LIBRARIAN 07/22/2024 1:50 PM PRIMARY SCHOOL TEACHER LIBRARIAN us Marium FOY LAB BLOOD ORDERABLES Final Result [facility] Unless otherwise noted, all lab tests performed by: Division of Pathology and Laboratory Medicine [address] [place] [id number] [place] [address] Unless otherwise noted, all lab tests performed by: Division of Pathology and Laboratory Medicine [address] [place] [address] * IHC Workup (07/22/2024 11:57 AM PRIMARY SCHOOL TEACHER LIBRARIAN) Tissue 07/22/2024 11:5 7 AM PRIMARY SCHOOL TEACHER LIBRARIAN 07/22/2024 11:57 AM PRIMARY SCHOOL TEACHER LIBRARIAN Marium FOY [facility] AP BIOMARKER ORDERABLE S Final Result Performing Organization Address City/[facility] de Phone Number [facility] [place] [address], * [facility] Tumor Portrait (Send out) Material Request (07/22/2024 11:57 AM PRIMARY SCHOOL TEACHER LIBRARIAN) Archived Material The test is to be performed on tissue from case [id number]. The case report, slides, and blocks for the cited accession were retrieved from archives. The pathologist examined the candidate slides and selected case material appropriate to the specifications of the ordered molecular analysis. The selected material(s) were prepared and forwarded to reference laboratory where the subject molecular test will be performed. Results will be reported separately. 07/25/2024 9:12 AM PRIMARY SCHOOL TEACHER LIBRARIAN [facility] Pathologist Signature 07/25/2024 9:12 AM PRIMARY SCHOOL TEACHER LIBRARIAN [facility] Tissue 07/22/2024 11:5 7 AM PRIMARY SCHOOL TEACHER LIBRARIAN 07/22/2024 11:57 AM PRIMARY SCHOOL TEACHER LIBRARIAN us Marium FOY MDA IP AP BIOMARKERS Final Result [facility] [place] [address] [place] [address], [place] * IR US GUIDED BIOPSY LIVER (03/20/2024 10:06 AM CDT) Anatomical Region Laterality Modality Abdomen/Pelvis, Organ (liver/spleen/kidney) Computed Tomography Narrative 03/20/2024 1:36 PM CDT Date of Procedure: 03/20/24 Attending Physician: Hi Singleton MD Vineyardist: None Pre Procedure Diagnosis: Liver mass Post [...] Plan: No follow-up with Interventional Radiology required. us Latira Miko FISH CLEANER MACHINE TENDER IMG IR ORDERABLES Final Re sult * Confirm ABORh (03/19/2024 12:15 PM CDT) ABORh Confirm O POS 03/18/2024 7:00 PM CDT [facility] Blood Peripheral blood specimen / Unknown Venipuncture / Unknown 03/19/2024 12:15 PM CDT 03/19/2024 12:16 PM CDT Makenzie Mclain PA-C BLOOD BANK TEST ORDERABLES Final Result [facility] [address] [place] [address] [phone] [place] [address] * Glucose, Random (03/12/2024 1:52 PM CDT) [facility] Glucose Random 107 70 - 199 mg/dL 03/12/2024 2:35 PM CDT [facility] Blood Peripheral blood specimen / Unknown Venipuncture / Unknown 03/12/2024 1:52 PM CDT 03/12/2024 1:55 PM CDT Narrative [facility] - 03/12/2024 2:35 PM CDT Effective 01/19/16, the glucose reference intervals have been updated based on [place] [employer] guidelines (Standards of Medical Care in Diabetes 2016. Diabetes Care 2016; 39: S13-S22). Fasting blood glucose: Normal: 70-99 mg/dL Impaired fasting glucose (increased risk for diabetes or pre-diabetes): 100-125 mg/dL Diabetes mellitus: >/=126 mg/dL Random blood glucose: Normal: 70-199 mg/dL Note: Random glucose >100 mg/dL is associated with increased risk for diabetes us Sergey Crouch FISH CLEANER MACHINE TENDER LAB BLOOD ORDERABLES Final Result [facility] Unless otherwise noted, all lab tests performed by: Division of Pathology and Laboratory Medicine [address] [place] [phone] * aPTT (03/12/2024 1:52 PM CDT) Pathologist [facility] Activated PTT 28.4 24.1 - 35.5 second(s) 03/12/2024 2:33 PM CDT [facility] Blood Peripheral blood specimen / Unknown Venipuncture / Unknown 03/12/2024 1:52 PM CDT 03/12/2024 1:55 PM CDT Latira Miko FISH CLEANER MACHINE TENDER LAB BLOOD ORDERABLES Final Result Performing Organization Address City/[facility]/ZIP Co de Phone Number [facility] Unless otherwise noted, all lab tests performed by: Division of Pathology and Laboratory Medicine [address] [place] [phone] * (ABNORMAL) BUN (03/12/2024 1:52 PM CDT) BUN 26(H) 6 - 23 mg/dL 03/12/2024 2:35 PM CDT [facility] Blood Peripheral blood specimen / Unknown Venipuncture / Unknown 03/12/2024 1:52 PM CDT 03/12/2024 1:55 PM CDT Sergey Sheppardevert FISH CLEANER MACHINE TENDER LAB BLOOD ORDERABLES Final Result Performing Organization Address [facility] de Phone Number [facility] Unless otherwise noted, all lab tests performed by: Division of Pathology and Laboratory Medicine [address] [place] [address] * Phosphorus Level (03/12/2024 1:52 PM CDT) Phosphorus Level 2.7 2.5 - 4.5 mg/dL 03/12/2024 2:35 PM CDT [facility] Blood Peripheral blood specimen / Unknown Venipuncture / Unknown 03/12/2024 1:52 PM CDT 03/12/2024 1:55 PM CDT Latira Miko FISH CLEANER MACHINE TENDER LAB BLOOD ORDERABLES Final Result Performing Organization Address City/[facility]/ZIP Co de Phone Number [facility] Unless otherwise noted, all lab tests performed by: Division of Pathology and Laboratory Medicine [address] [place] [phone] * (ABNORMAL) Creatinine (03/12/2024 1:52 PM CDT) Creatinine 1.56(H) 0.67 - 1.17 mg/dL 03/12/2024 2:35 PM CDT [facility] eGFR 42(L) >=60 mL/min/1. 73 sq. m 03/12/2024 2:35 PM CDT [facility] Comment: The eGFRcr is calculated with [...] PM CDT Sergey Crouch APRN LAB BLOOD ORDERABLES Final Result [facility] Unless otherwise noted, all lab tests performed by: Division of Pathology and Laboratory Medicine [address] [place] [address] * Calcium Level (03/12/2024 1:52 PM CDT) Calcium Level Total 9.8 8.2 - 10.2 mg/dL 03/12/2024 2:35 PM CDT [facility] Blood Peripheral blood specimen / Unknown Venipuncture / Unknown 03/12/2024 1:52 PM CDT 03/12/2024 1:55 PM CDT us Sergey Gaonat FISH CLEANER MACHINE TENDER LAB BLOOD ORDERABLES Final Result Performing Organization Address [facility] de Phone Number [facility] Unless otherwise noted, all lab tests performed by: Division of Pathology and Laboratory Medicine [address] [place] [phone] * Electrolyte Panel (03/12/2024 1:52 PM CDT) Sodium Level 144 136 - 145 mmol/L 03/12/2024 2:35 PM CDT [facility] Potassium Level 3.6 3.4 - 4.5 mmol/L 03/12/2024 2:35 PM CDT [facility] Chloride 106 98 - 107 mmol/L 03/12/2024 2:35 PM CDT [facility] CO2 29 22 - 29 mmol/L 03/12/2024 2:35 PM CDT [facility] Anion Gap 9 4 - 14 mmol/L 03/12/2024 2:35 PM CDT [facility] Blood Peripheral blood specimen / Unknown Venipuncture / Unknown 03/12/2024 1:52 PM CDT 03/12/2024 1:55 PM CDT us Sergey Crouch FISH CLEANER MACHINE TENDER LAB BLOOD ORDERABLES Final Result Performing Organization Address [facility] [facility] de Phone Number [facility] Unless otherwise noted, all lab tests performed by: Division of Pathology and Laboratory Medicine [address] [place] [phone] * EKG, 12-Lead (Scheduled) (03/12/2024) us Sergey Crouch FISH CLEANER MACHINE TENDER ECG ORDERABLES Final Resu lt Performing Organization Address City/[facility]/ZIP Co de Phone Number [facility] I[facility] * OSI US Abdominal Complete (02/06/2024 4:15 PM CDT) Narrative Systemgenerated, Documentation - 03/07/2024 4:15 PM CDT Study acquired at another institution. For comparison only. No MD [facility] originated interpretation requested or available. us Kalpana Mancera MD IMG OUTSIDE IMAGE ORDERABL ES Final Result after 02/05/2024 Insurance [facility] MEDICARE ADVANTAGE Member Subscriber Plan / Payer (Ef fective 2023-Present) Name:Kevin Hurst Relation to Subscriber:Self Name:Kevin Hurst Payer ID:[id number] (NAIC) Type:Medicare Address: [place] [phone] [facility] MEDICARE ADVANTAGE Advance Directives * Full Code (Latest Code Status on File) Date Activated Date Inactivated Comments 01/31/2025 4:45 PM Update based on Advanced Directive Documentation * Full Code Date Activated Date Inactivated Comments 01/30/2025 2:25 PM 01/31/2025 12:33 PM * Full Code Date Activated Date Inactivated Comments 01/30/2025 11:54 AM 01/30/2025 2:25 PM Update based on Advanced Directive Documentation * Full Code Date Activated Date Inactivated Comments 12/17/2024 4:39 PM 01/30/2025 11:53 AM Update based on Advanced Directive Documentation Care Teams Manager In Home Relationship Specialty Start Date End Date Apolinar Bird MD [address] [place] [phone] [email or web address] PCP - External Referring Internal Medicine 02/20/24 Kalpana Mancera MD [address] [place] [phone] [email or web address] PCP - General Internal Medicine 03/03/24 07/30/24 Raymundo Langley MD [address] [place] [address] [phone] [email or web address] PCP - General Gastrointestinal Medical Oncology 07/31/24 Ira Lancaster RN [address] [place] [phone] [email or web address] Intake Nurse Navigator Nursing 02/20/24 02/27/24 Raymundo Langley MD [address] [place] [address] [phone] [email or web address] Consulting Physician Gastrointestinal Medical Oncology 07/22/24 Ajay Martins MD [address] [place] [phone] [email or web address] Consulting Physician Radiation Oncology 08/07/24 Aline Baez PA-C [address] [place] [phone] [email or web address] Physician [facility] Radiology 03/19/24
[2025-02-04 08:02] LABS: Absolute Lymphocytes (CBC) 0.2 K/uL (0.7-4.9); Hematocrit 31.8 % (39.6-49.0); Hemoglobin 11.2 g/dL (13.6-17.9); MCH 31.5 pg (27.0-35.0); MCHC 35.2 g/dL (32.0-36.0); MCV 89.5 fL (80-100); MPV 7.9 fL (7.6-11.3); Nucleated RBC Absolute Count 0.0 (0-0); Nucleated Red Blood Cells % 0.0 % (0-0); RBC Red Blood Cell Count 3.55 M/uL (4.33-5.43); White Blood Count 5.00 thou/uL (4.3-10.9)
[2025-02-04 08:22] LABS: ALT/SGPT 43.0 U/L (16-61); AST/SGOT 14.0 U/L (15-37); Albumin 3.2 g/dL (3.4-5.0); Albumin/Globulin Ratio 1.2 (1.1-1.8); Alkaline Phosphatase 91.0 U/L (45-117); Anion Gap 6.5 mEq/L (5.0-15.0); BUN Blood Urea Nitrogen 19.0 mg/dL (7-18); Globulin 2.7 g/dL (2.3-3.5); Glucose Level 93.0 mg/dL (74-106); Potassium 3.5 mEq/L (3.5-5.1)
--- NOTE | 2025-02-04 09:15 | ER ---
Nurse's Notes [facility] Name: Kevin Hurst Age: 89 yrs Sex: Male : 1935 Arrival Date: 02/04/2025 Time: 07:04 Bed 6 Private MD: Diagnosis: Retention of urine, unspecified;Essential (primary) hypertension;Anemia, unspecified Presentation: 02/04 07:20 Chief complaint: EMS states: EMS called for urinary retention, difficulty having bowel ph movements, decreased appetite, pt reports last urinating and having BM last night before bed, pt also c/o pain and weakness in R knee, pt hypertensive but has not taken morning meds, other VSS. Coronavirus screen: Vaccine status: Patient reports being unvaccinated. Ebola Screen: No symptoms or risks identified at this time. Initial Sepsis Screen: Does the patient meet any 2 criteria? No. Patient's initial sepsis screen is negative. Does the patient have a suspected source of infection? No. Patient's initial sepsis screen is negative. Risk Assessment: Do you want to hurt yourself or someone else? Patient reports no desire to harm self or others. Onset of symptoms was February 04, 2025. 07:20 Method Of Arrival: EMS: [facility] 07:20 Acuity: DONALD 3 ph Triage Assessment: 07:23 General: Appears in no apparent distress. comfortable, Behavior is calm, cooperative. ph Pain: Complains of pain in right knee. Pain: Complains of pain in suprapubic area. Neuro: Level of Consciousness is awake, alert, obeys commands, Oriented to person, place, time, situation. Cardiovascular: Capillary refill < 3 seconds in bilateral fingers Patient's skin is warm and dry. Respiratory: Airway is patent Respiratory effort is even, unlabored. GI: Reports constipation. : Reports inability to void. Derm: Skin is pink, warm \T\ dry. Musculoskeletal: Circulation, motion, and sensation intact. Range of motion: intact in all extremities, Swelling present in right knee. Historical: - Allergies: 07:23 No Known Allergies; ph - PMHx: 07:23 GERD; Hypercholesterolemia; Hypertensive disorder; ULCER; ph - PSHx: 07:23 Appendectomy; Cataract Surgery- right eye; hernia repair; prostate; Right Nephrectomy; ph Tonsillectomy; - Immunization history:: Adult Immunizations unknown. - Infectious Disease History:: Denies. - Social history:: Smoking status: Patient denies any tobacco usage or history of. Screenin:25 [facility] ED Fall Risk Assessment (Adult) History of falling in the last 3 months, ph including since admission Yes- single mechanical fall (1 pt) Confusion or Disorientation No (0 pts) Intoxicated or Sedated No (0 pts) Impaired Gait No (0 pts) Mobility Assist Device Used Yes (1 pt) Altered Elimination Yes (1 pt) Score/Fall Risk Level 3 or more points = High Risk Oriented to surroundings, Maintained a safe environment, Hourly rounding (assess needs \T\ fall precautionary measures) done, Used ambulatory aids as needed (educated on \T\ assisted with). Abuse screen: Denies threats or abuse. Denies injuries from another. Nutritional screening: No deficits noted. Tuberculosis screening: No symptoms or risk factors identified. Assessment: 07:26 General: SEE TRIAGE ASSESMENT. ph 09:13 Reassessment: Patient appears in no apparent distress at this time. Patient and/or ph family updated on plan of care and expected duration. Pain level reassessed. Patient is alert, oriented x 3, equal unlabored respirations, skin warm/dry/pink. 10:20 Reassessment: family at beside, updated on POC by Dr. Malone, pt will go home with knee iw immobilizer and krueger bag, educated and caregiver on use of krueger and immobilizer, caregiver verbalizes understanding. Vital Signs: 07:20 BP 181 / 74; Pulse 59; Resp 18; Temp 98.4; Pulse Ox 100% on R/A; Weight 81.65 kg; ph 09:13 BP 160 / 64; Pulse 51; Resp 18; Pulse Ox 100% on R/A; ph 10:25 BP 154 / 74; Pulse 59; Resp 16; Pulse Ox 97% on R/A; iw ED Course: 07:05 Patient arrived in ED. [email or web address] 07:08 Catracho Malone DO is Attending Physician. ms3 07:19 Katey Garibay, KARLOS is Primary Nurse. ph 07:23 Triage completed. ph 07:25 Arm band placed on Patient placed in an exam room, on a stretcher. ph 07:26 Patient has correct armband on for positive identification. Bed in low position. Call ph light in reach. Side rails up X2. Pulse ox on. NIBP on. Door closed. Noise minimized. Warm blanket given. Pillow given. 07:58 Initial lab(s) drawn, by me, sent to lab. Inserted saline lock: 20 gauge in right iw antecubital area, using aseptic technique. Blood collected. Flushed with 10 mL NS. 07:58 CMP Sent. iw 07:58 CBC with Diff Sent. iw 08:50 Bladder scan completed. 999 mL. iw 09:01 Krueger cath inserted, using sterile technique, 16 Fr., by me, balloon inflated, to iw gravity drainage, returned clear yellow urine. Patient tolerated well. 09:15 Jordan Bird MD is Referral Physician. ms3 10:35 No provider procedures requiring assistance completed. IV discontinued, intact, iw bleeding controlled, No redness/swelling at site. Pressure dressing applied. Administered Medications: No medications were administered Medication: 07:25 VIS not applicable for this client. ph Outcome: 09:15 Discharge ordered by MD. ms3 10:35 Discharged to home via wheelchair, with family, iw 10:35 Condition: good 10:35 Discharge instructions given to patient, family, regulatory specialist, Instructed on discharge instructions, follow up and referral plans. medication usage, Demonstrated understanding of instructions, follow-up care, medications, 10:36 Patient left the ED. Signatures: Jackelyn Gonzales, RN RN Katey Garibay RN RN Catracho Malone DO DO ms3 Emma Santiagonifer [email or web address]
--- NOTE | 2025-02-04 09:16 | EDPHYS ---
Physician Documentation [facility] Name: Kevin Hurst Age: 89 yrs Sex: Male : 1935 Arrival Date: 02/04/2025 Time: 07:04 Bed 6 Private MD: ED Physician Catracho Malone HPI: 02/04 09:00 This 89 yrs old Male presents to ER via EMS with complaints of Urinary Retention. ms3 09:00 89-year-old male with past medical history of GERD, hypercholesterolemia, hypertension, ms3 ulcer presents to the emergency department for being unable to pee since last night. Patient states he is having moderate discomfort located in the suprapubic region. He denies any alleviating or inciting factors.. Historical: - Allergies: 07:23 No Known Allergies; ph - PMHx: 07:23 GERD; Hypercholesterolemia; Hypertensive disorder; ULCER; ph - PSHx: 07:23 Appendectomy; Cataract Surgery- right eye; hernia repair; prostate; Right Nephrectomy; ph Tonsillectomy; - Immunization history:: Adult Immunizations unknown. - Infectious Disease History:: Denies. - Social history:: Smoking status: Patient denies any tobacco usage or history of. ROS: 09:00 Constitutional: Negative for fever, and chills. Cardiovascular: Negative for chest ms3 pain, and palpitations. Respiratory: Negative for shortness of breath, cough, wheezing, and pleuritic chest pain, MS/Extremity: Negative for injury and deformity, 09:00 Skin: Negative for injury, rash, and discoloration, 09:00 Abdomen/GI: Positive for abdominal pain, Exam: 09:00 Constitutional: This is a well developed, well nourished patient who is awake, alert, ms3 and in no acute distress. Cardiovascular: Regular rate and rhythm with a normal S1 and S2. No gallops, murmurs, or rubs. Normal PMI, no JVD. No pulse deficits. Respiratory: Lungs have equal breath sounds bilaterally, clear to auscultation and percussion. No rales, rhonchi or wheezes noted. No increased work of breathing, no retractions or nasal flaring. Skin: Warm, dry with normal turgor. Normal color with no rashes, no lesions, and no evidence of cellulitis. 09:00 Abdomen/GI: Inspection: abdomen appears normal, Bowel sounds: normal, Palpation: moderate abdominal tenderness, in the suprapubic area, Vital Signs: 07:20 BP 181 / 74; Pulse 59; Resp 18; Temp 98.4; Pulse Ox 100% on R/A; Weight 81.65 kg; ph 09:13 BP 160 / 64; Pulse 51; Resp 18; Pulse Ox 100% on R/A; ph 10:25 BP 154 / 74; Pulse 59; Resp 16; Pulse Ox 97% on R/A; iw MDM: 07:18 Medical Screening Exam initiated ms3 09:00 Differential diagnosis: nonspecific abdominal pain, UTI, urinary retention. Data ms3 reviewed: vital signs, nurses notes, lab test result(s), and as a result, I will discharge patient. Counseling: I had a detailed discussion with the patient and/or guardian regarding the historical points, exam findings, and any diagnostic results supporting the discharge/admit diagnosis, lab results, the need for outpatient follow up, to return to the emergency department if symptoms worsen or persist or if there are any questions or concerns that arise at home. Special discussion: I discussed with the patient/guardian in detail that at this point there is no indication for admission to the hospital. It is understood, however, that if the symptoms persist or worsen the patient needs to return immediately for re-evaluation. ED course: Bladder scan showed 997 mL urine in the bladder. Valdez catheter placed.. 02/04 07:21 Order name: CBC with Diff; Complete Time: 08:40 ms3 02/04 07:21 Order name: CMP; Complete Time: 08:40 ms3 02/04 07:21 Order name: Bladder Scanner; Complete Time: 09:09 ms3 02/04 08:48 Order name: Valdez; Complete Time: 09:00 ms3 02/04 08:48 Order name: Valdez Leg Bag; Complete Time: 10:04 ms3 02/04 10:34 Order name: Knee Immobilizer; Complete Time: 10:34 iw Administered Medications: No medications were administered Disposition Summary: 02/04/25 09:15 Discharge Ordered Notes: Location: Home ms3 Condition: Stable ms3 Diagnosis - Retention of urine, unspecified ms3 - Essential (primary) hypertension ms3 - Anemia, unspecified ms3 Followup: ms3 - With: Jordan Bird MD - When: 2 - 3 days - Reason: Recheck today's complaints Discharge Instructions: - Discharge Summary Sheet ms3 - Anemia ms3 - Hypertension, Adult ms3 - Acute Urinary Retention, Male, [id number] ms3 - DASH Eating Plan ms3 - Indwelling Urinary Catheter Care, Adult, [id number] ms3 Forms: - Medication Reconciliation Form ms3 - Antibiotic Education ms3 - Prescription Opioid Use ms3 - Patient Portal Instructions ms3 - Leadership Thank You Letter ms3 Prescriptions: - tamsulosin 0.4 mg Oral capsule - take 1 capsule ORAL route daily; 20 capsule; Refills: 0, Product Selection ms3 Permitted Signatures: Dispatcher [employer] Jackelyn Crocker RN RN iw Hall, Patricia, RN RN Catracho Flaherty, DO ms3
[2025-02-04 10:47] VITALS: TEMP 98.4
[2025-02-04 10:50] VITALS: BP 154/74; O2SAT 97
== END 2025-02-04 10:36 | disposition home or self-care (01) ==
LOC: ER 07:04
DX: R33.9 Retention of urine, unspecified (principal); I10 Essential (primary) hypertension; D64.9 Anemia, unspecified
CPT/HCPCS: 36415; 51702; 80053; 85025; 99284